=== PATIENT | female | born 1955 | race Caucasian/White ===

== ENCOUNTER 2021-03-25 11:23 | Emergency (ER) | payer MEDICARE, SELFPAY ==
--- NOTE | 2021-03-25 11:30 | ED.EAR ---
HPI - Ear Problem General Chief complaint: Ear Stated complaint: ear pain Time Seen by Provider: 03/25/21 11:30 Source: patient and RN notes reviewed History of Present Illness HPI Narrative: Patient is a 66-year-old female who presents the urgent care with complaints of left ear pain since last night. Patient states she was swimming last week and thinks that she has swimmer's ear. Denies of any other upper respiratory complaints. Denies of fever, drainage from the ear, nausea, vomiting. Patient has not taken anything [id number] for her pain. No other acute complaints. No acute distress noted. Patient aware of the plan of care. Some parts of this dictation were generated by voice recognition software and may contain typographical and/or grammatical inaccuracies. Related Data Home Medications Medication Instructions Recorded Confirmed aspirin 81 mg tablet,delayed 81 mg PO DAILY 03/03/20 03/25/21 release citalopram 20 mg tablet 20 mg PO DAILY 03/03/20 03/25/21 esomeprazole magnesium 20 mg 20 mg PO DAILY 03/03/20 03/25/21 capsule,delayed release losartan 50 mg tablet 50 mg PO DAILY 03/03/20 03/25/21 ropinirole 2 mg tablet 2 mg PO BID 03/03/20 03/25/21 rosuvastatin 10 mg tablet 10 mg PO DAILY 03/03/20 03/25/21 buspirone 15 mg PO DAILY 03/25/21 03/25/21 fluticasone furoate-vilanterol 100 inh INHALATION DIRECTED 03/25/21 03/25/21 [Breo Ellipta] metformin 2 mg PO BID 03/25/21 03/25/21 Allergies Allergy/AdvReac Type Severity Reaction Status Date / Time nickel Allergy Unknown Unknown Verified 03/03/20 15:24 Review of Systems Review of Systems: Narrative: CONSTITUTIONAL: Denies fever, chills, or sweats. EYES: Denies visual changes, redness, or discharge. ENT: Denies rhinorrhea, congestion, sore throat. Reports of left otalgia CARDIOVASCULAR: Denies chest pain, palpitations, or edema. RESPIRATORY: Denies cough or dyspnea. GASTROINTESTINAL: Denies abdominal pain, nausea, vomiting, or diarrhea. GENITOURINARY: Denies dysuria or hematuria. SKIN: Denies rash or itching. MUSCULOSKELETAL: Denies back pain, joint pain, or myalgia. NEUROLOGIC: Denies headache, numbness, or weakness. All other systems reviewed are negative, except as documented in HPI. [facility] Past Medical History Medical History (Updated 03/25/21 @ 11:40 by Brook Martinez [facility]) Heart attack (~02/2020) Hypertension Osteoarthritis of left shoulder Surgical History Surgical History (Updated 03/03/20 @ 15:23 by Beatriz Charlton) H/O heart bypass surgery (~05/2002) History of heart artery stent (~02/2020) x3 History of hysterectomy (~09/1999) Family History Family History (Updated 08/24/16 @ 09:28 by DOCTOR UNKNOWN) Father Carcinoma of colon Social History Social History Smoking status: Former smoker Smoking end date: 09/03/95 Gender identity (if verbalized by the patient): Female Comments At the time of my signature, I reviewed and agree with the nursing past medical, surgical, social, and family history. There is no relevant family history pertinent to the patient complaint. Exam Narrative: Exam Narrative: GENERAL: This is a well-nourished, well-developed patient, in no apparent distress. HEAD: normocephalic, atraumatic. EYES: PERRL. Sclera clear/white. Vision is grossly intact. EARS: External ears normal, right auditory canal clear and without drainage, pain with manipulation of the tragus on the left with very mild edema noted to the left auditory canal without drainage, TMs normal without perforation. Hearing grossly intact. NOSE: External nose normal with no obvious nasal discharge, nares without redness, no rhinorrhea. THROAT: Mucous membranes moist, posterior pharynx clear. NECK: Neck supple CARDIOVASCULAR: Regular rate and rhythm without murmurs, gallops, or rubs. RESPIRATORY: Clear to auscultation. Breath sounds equal bilaterally. No wheezes, rales, or rhonchi. SKIN: warm, intact with no suspicious lesio
[2021-03-25 11:37] VITALS: BP 143/52; PULSE 63; RESP 18; TEMP 36.8; O2SAT 100
== END 2021-03-25 11:45 | disposition home or self-care (01) ==
PROVIDERS: Emergency Provider Nurse Practitioner Family; PCP Family Medicine
DX: H92.02 Otalgia, left ear (principal); Z87.891 Personal history of nicotine dependence; I25.2 Old myocardial infarction; I10 Essential (primary) hypertension; M19.012 Primary osteoarthritis, left shoulder; Z95.5 Presence of coronary angioplasty implant and graft; Z79.82 Long term (current) use of aspirin
CPT/HCPCS: 99213; G0463

== ENCOUNTER 2021-11-16 09:17 | Outpatient (CLI) | payer MEDICARE, SELFPAY ==
--- NOTE | ~2021-11-16 | CT_ITS ---
EXAMINATION: CT shoulder LT wo con DATE: 11/16/2021 10:03 INDICATION: Primary osteoarthritis of the left shoulder TECHNIQUE: High resolution computed tomography (CT) of the left shoulder was performed without intrav enous contrast. Additional sagittal and coronal reconstructions were performed. Automated exposure co ntrol and iterative reconstruction technique were employed. The dose-length product was 529.06 mGy-cm . COMPARISON: None FINDINGS: Alignment is normal. No fracture. Moderate osteoarthritis at the left acromioclavicular joint. Severe osteoarthritis at the left glenohumeral joint. There is remodeling of the left humeral head with sli ght flattening superomedially. There is also remodeling of the glenoid with posterior predominant los s of bone stock resulting in approximately 12 degrees acquired retroversion. No glenohumeral joint ef fusion. No asymmetric muscular atrophy of the rotator cuff or shoulder girdle. Visualized portions of the left lung are clear. No left axillary or left hilar lymphadenopathy. IMPRESSION: 1. Severe left glenohumeral and moderate acromioclavicular osteoarthritis. Reviewed, dictated and finalized at location A.
== END 2021-11-16 09:18 | disposition home or self-care (01) ==
LOC: ANHIMG 09:22
PROVIDERS: PCP Family Medicine; Visit Provider Orthopaedic Surgery
DX: M19.012 Primary osteoarthritis, left shoulder (principal)
CPT/HCPCS: 73200

== ENCOUNTER 2021-12-21 13:37 | Outpatient (CLI) | payer MEDICARE, SELFPAY ==
--- NOTE | 2021-12-21 14:31 | ECG_ITS ---
Measurements Intervals [place] Rate: 70 P: 47 NC: 147 QRS: 49 QRSD: 97 T: 44 QT: 426 QTc: 460 Interpretive Statements SINUS RHYTHM BASELINE ARTIFACT BORDERLINE ECG NO PREVIOUS ECG AVAILABLE FOR COMPARISON Electronically Signed On 12-21-2021 18:15:27 CDT by Kenneth Villalobos M.D.
[2021-12-21 15:08] LABS: Basophils Absolute Auto 0.1 K/mm3 (0.0-0.1); Basophils Percent Auto 0.8 % (0.2-1.2); Eosinophils Absolute Auto 0.1 K/mm3 (0-0.3); Eosinophils Percent Auto 2.2 % (0-4.4); Hematocrit 35.6 % (37.0-47.0); Hemoglobin 10.9 g/dL (12.0-15.0); Immature Granulocyte Absolute 0.02 K/mm3 (0.00-0.031); Immature Granulocyte Percent A 0.3 % (0-0.5); Lymphocytes Absolute Auto 1.61 K/mm3 (0.9-3.2); Lymphocytes Percent Auto 25.2 % (18.3-44.2); Mean Corpuscular HGB Conc 30.6 g/dl (32-36); Mean Corpuscular Hemoglobin 27.3 pg (26-34); Mean Platelet Volume 9.1 fl (7.4-10.4); Monocytes Absolute Auto 0.6 K/mm3 (0.1-0.6); Monocytes Percent Auto 9.9 % (2.6-8.5); Neutrophils Absolute Auto 3.9 K/mm3 (1.3-6.7); Neutrophils Percent Auto 61.6 % (45.5-73.1); Platelet Count Result 235 k/mm3 (150-375); Red Cell Distribution Width 14.1 % (11.5-14.5); White Blood Count 6.4 K/mm3 (4.5-10.0)
[2021-12-21 15:21] LABS: Anion Gap 7 mmol/L (8-16); Blood Urea Nitrogen 11 mg/dL (7-17); Calcium 8.8 mg/dL (8.4-10.2); Carbon Dioxide 28 mmol/L (22-30); Chloride 103 mmol/L (98-107); Estimated Glomerular Filt Rate > 60; Glucose 136 mg/dL (65-110); Potassium 4.3 mmol/L (3.4-5.0); Sodium 138 mmol/L (137-145)
== END 2021-12-21 13:38 | disposition home or self-care (01) ==
PROVIDERS: Anesthesiology; PCP Family Medicine; Visit Provider Orthopaedic Surgery
DX: Z01.818 Encounter for other preprocedural examination (principal); M19.012 Primary osteoarthritis, left shoulder; E11.9 Type 2 diabetes mellitus without complications
CPT/HCPCS: 36415; 80048; 85025; 87081; 93005

== ENCOUNTER 2022-01-12 00:36 | Day surgery (SDC) | payer MEDICARE, SELFPAY ==
[2021-12-21 13:45] VITALS: BMI 38.2
--- NOTE | 2021-12-21 14:09 | PC.NURSE ---
Report to the Outpatient Waiting Room, entrance under the green pavilion located off [facility], at time _0600 on date 01/12/22 . OR Time: . - You and your visitor will be asked a series of questions to screen for COVID 19 for your protection. - A mask is required within the hospital. Preoperative COVID Testing Requirements: No COVID Test needed if: (proof is required; if not received patient will have Rapid Test prior to entry) - Patient has received COVID Vaccine at least 14 days prior to procedure date or - Patient has positive COVID test result within last 90 days of surgery date. COVID Test needed if above criteria is not met If not COVID vaccinated a COVID test must be conducted within 72 hours of surgery and patient is asked to isolate self from time of testing until procedure. You will go to the [facility] for your COVID testing. The [facility] site is located at the corner of [address] [facility]. You will only be called if COVID results are positive and your surgeon may reschedule your elective surgery date. Patients may have clear liquids (water, carbonated beverages, clear teas, apple juice) until 3 hours prior to surgery with a maximum of 20 ounces. - No food from midnight until time of surgery - Infants may have breast milk until 4 hours before surgery, infant formula 6 hours prior to surgery. - Children will be allowed to drink immediately following surgery. If applicable, please bring a bottle or sippy cup to assist with drinking. Juice, water, soda, and popsicles are readily available. For infants on formula, please bring formula the day of surgery. Pacifiers are allowed. Take the following medications with a SIP of water the morning of surgery: ___CITALOPRAM,BREO ELLIPTA INHALER,METOPROLOL, Medications to discontinue per physician __ASPIRIN 7 DAYS PRE OP,MULTIVITAMIN 3 DAYS PRE OP Date to take last dose__ASPIRIN 01/04/22, VITAMIN 01/08/22 Please no make-up, nail [place]ank[place], hairspray, perfume, deodorant, or body powder the day of surgery. No jewelry (including any body piercings) or valuables the day of surgery, leave them at home. Please take a shower or bath the night before, or the morning of, surgery with an antibacterial soap. Wear comfortable, loose fitting clothing. Children are encouraged to wear pajamas. - Jewelry must be removed prior to entering the operating room. Rings and piercings that are not removed may be cut off. - The hospital will not accept responsibility for valuables. - Please leave all valuables, including medications, at home the day of surgery. If you are going home after surgery, a licensed recycling collections driver must drive you home. - NO public transportation without another adult. - We recommend that an adult stay with you for 24 hours following discharge. - We also recommend that you do not drive, make important decision, drink alcoholic beverages, or take any drugs that were not prescribed by your health care provider for at least 24 hours after your discharge time. For Pediatric surgeries, we recommend two adults accompany the child home (only one inside the building at this time). One visitor will be allowed to accompany the patient into the hospital. Patients visitor will be instructed to remain with patient at all times or leave the building. We will allow the visitor to come back to the postoperative area when patient is ready. Follow any additional instructions given to you from your surgeon. VERBAL AND WRITTEN instructions given to __PT. and asked if any additional questions and then verbalized understanding. Patient advised to call surgeon office or pre surgery nurse liaison [phone] if any additional questions.
[2021-12-21 14:29] VITALS: BP 146/84; PULSE 78; RESP 18; TEMP 37.1; O2SAT 96
[2022-01-12] VITALS (16 sets, daily range): BP systolic 105–196; BP diastolic 44–93; PULSE 49–78; RESP 15–20; TEMP 35.8–36.5; O2SAT 92–100
[2022-01-12] MEDS: ACETAMINOPHEN 500 MG TABLET 1000 MG PO (06:23)
--- NOTE | 2022-01-12 06:54 | WPDANESEPPF ---
Anes - Initial Pre Proc Eval Procedure: Operation Date: 01/12/22 07:30 Proposed Procedures p Left Reverse Total Shoulder Arthroplasty - Reyes Byrnes MD Date/Time: 01/12/22 06:54 Surgeon: Reyes Byrnes MD Pre Op Diagnosis: primary oa left shoulder Patient Data Age: 67 Gender: F Height: 1.66 m Weight: 103 kg Last Vital Signs Temp 37.1 C 12/21/21 14:29 Pulse 78 12/21/21 14:29 Resp 18 12/21/21 14:29 BP 146/84 H 12/21/21 14:29 Pulse Ox 96 12/21/21 14:29 Allergies Allergy/AdvReac Type Severity Reaction Status Date / Time nickel Allergy Unknown Rash Verified 01/12/22 06:17 Home Medications Medication Instructions Recorded Confirmed Type aspirin 81 mg tablet,delayed 81 mg PO DAILY 03/03/20 01/12/22 History release esomeprazole magnesium 20 mg 40 mg PO DAILY 03/03/20 01/12/22 History capsule,delayed release losartan 50 mg tablet 50 mg PO DAILY 03/03/20 01/12/22 History ropinirole 2 mg tablet 3 mg PO HS 03/03/20 01/12/22 History rosuvastatin 10 mg tablet 20 mg PO DAILY 03/03/20 01/12/22 History fluticasone furoate-vilanterol 1 inh INHALATION DAILY 03/25/21 01/12/22 History [Breo Ellipta] metformin 1 mg PO BID 03/25/21 01/12/22 History citalopram 20 mg tablet 40 mg PO DAILY tablet 10/03/21 01/12/22 History metoprolol tartrate 25 mg PO BID 12/21/21 01/12/22 History multivitamin [Multi-Vitamin] 1 tablet PO DAILY 12/21/21 01/12/22 History Patient hx anesthesia problems: none Family hx anesthesia problems: none Results Review: All pre-operative results and documents have been reviewed as part of the pre-operative evaluation. [facility] Past Medical History Medical History Anxiety CAD (coronary artery disease) Chronic pain syndrome COPD (chronic obstructive pulmonary disease) Depression Diabetes GERD (gastroesophageal reflux disease) Heart attack (~02/2020) Hyperlipidemia Hypertension KELIN (obstructive sleep apnea) Osteoarthritis of left shoulder Osteoarthritis of right shoulder Surgical History Surgical History H/O heart bypass surgery (~05/2002) History of heart artery stent (~02/2020) x3 History of hysterectomy (~09/1999) Stented coronary artery Family History Family History Father Carcinoma of colon Social History Social History Smoking packs per day: 1 Smoking cigarettes per day: 20.0 Years smoked: 25 Smoking pack-years: 25.00 Smoking status: Former smoker Tobacco type: cigarettes Smoking end date: 09/03/95 Living arrangements: with family Gender identity (if verbalized by the patient): Female Spiritual care concerns: No Anes - Eval Final PreProcedure Day of Procedure 01/12/22 06:54 Patient weight: obese Heart: regular rate and rhythm Lungs: decreased breath sounds Airway: Mallampati scale class II Neurological: alert and oriented Last oral intake: >/= 8 hours ASA classification: III Emergent: no Anesthetic plan: proceed Anesthesia type and monitoring: general ETT and standard monitoring Results Review: All pre-operative results and documents have been reviewed as part of the pre-operative evaluation. Informed Consent: The patient's anesthetic plan and its attendant risks and benefits were discussed with the patient/family/POA. Questions were solicited and answers provided to the satisfaction of the patient/family/POA.
[2022-01-12 06:55] LABS: Glucose Point of Care 156 mg/dl (65-105)
[2022-01-12] MEDS: LACTATED RINGERS 1,000 ML 30 ML IV CONT (07:01)
[2022-01-12] MEDS: TRANEXAMIC ACID 1,000MG/ISO100 1,000 MG/100 ML BAG 200 MG IVPB (07:02)
--- NOTE | 2022-01-12 07:14 | WPDHPUPDATE1 ---
History and Physical Update Update Date/Time: 01/12/22 07:14 History and Physical has been reviewed, including an updated exam of the patient. There are NO changes in the patient's condition. Risks, benefits, and alternatives have been discussed and questions answered. Patient agrees to proceed with procedure.
[2022-01-12] MEDS: ceFAZolin 2 GM/D5W 50 ML 2 GM/50 ML BAG IVPB ×2 (07:29→16:08)
[2022-01-12] MEDS: VANCOMYCIN HCL 1,000 MG VIAL 1000 MG TOPICAL (08:20)
[2022-01-12 10:39] LABS: Glucose Point of Care 203 mg/dl (65-105)
--- NOTE | 2022-01-12 11:43 | ADMGEN ---
This patient, Tiffanie Stanley, was admitted to Medical Room 246-01. Patient/family oriented to hospital policies and general routines including ID bracelet, bed and alarms, visiting hours, pain management, procedures, bathroom and other care routines, personal items, smoking policy, room service/diet, and visiting hours. Information on how to activate the Rapid Response Team has been discussed. Patient/Family are encouraged to report perceived risks to care and to ask questions if they do not understand what they are told or what they should do.
[2022-01-12] MEDS: SODIUM CHLORIDE 0.9% IV 1,000 ML 125 ML IV CONT (12:03)
[2022-01-12] MEDS: ROSUVASTATIN 10 MG TABLET 20 MG PO (12:16)
[2022-01-12] MEDS: LOSARTAN POTASSIUM 50 MG TABLET PO (12:16)
[2022-01-12] MEDS: PANTOPRAZOLE 40 MG TABLET PO (12:16)
--- NOTE | 2022-01-12 13:45 | WPDCN ---
Assessment and Plan Assessment and plan (1) Osteoarthritis of left shoulder: Qualifiers: Osteoarthritis type: primary Qualified Code(s): M19.012 - Primary osteoarthritis, left shoulder Code(s): M19.012 - Primary osteoarthritis, left shoulder Status: Acute Assessment and Plan: Postoperative day 0, status post left reverse total shoulder. Wound care, pain control, DVT prophylaxis deferred to primary service. (2) Hypertension: Code(s): I10 - Essential (primary) hypertension Status: Acute Assessment and Plan: Blood pressures were reviewed and they have been stable postoperatively. Resume antihypertensives and monitor daily. (3) Hyperlipidemia: Code(s): E78.5 - Hyperlipidemia, unspecified Status: Acute Assessment and Plan: Continue rosuvastatin. Check LFTs in a.m.. (4) Type 2 diabetes mellitus: Code(s): E11.9 - Type 2 diabetes mellitus without complications Status: Acute Assessment and Plan: Continue metformin. Initiate sliding scale insulin, Accu-Cheks, and hypoglycemic protocol. (5) Obstructive sleep apnea on CPAP: Code(s): G47.33 - Obstructive sleep apnea (adult) (pediatric); Z99.89 - Dependence on other enabling machines and devices Status: Acute Assessment and Plan: CPAP will be provided for the patient to use while hospitalized. (6) Coronary artery disease: Code(s): I25.10 - Atherosclerotic heart disease of [place] coronary artery without angina pectoris Status: Acute Assessment and Plan: No acute issues. Resume aspirin when okay with primary service. Continue beta-sarah and statin. (7) Chronic obstructive pulmonary disease: Code(s): J44.9 - Chronic obstructive pulmonary disease, unspecified Status: Acute Assessment and Plan: No acute issues. Continue maintenance inhalers. Additional Plan Thank you for allowing us to participate in this patient's care. Please do not hesitate to contact us with any questions. Supervising physician for this medical consultation is Dr. Jose Guadalupe Goldman. HPI Data of Consult Date/Time: 01/12/22 13:45 Requesting Physician: Reyes Byrnes MD Reason for consult: Postoperative medical management. Primary Care Provider: Parth Mcdonald, Consult Narrative Narrative: This is a 67-year-old female with coronary artery disease,, hypertension, hyperlipidemia, diabetes, asthma, sleep apnea, GERD, depression, and anxiety whom the hospitalist service has been consulted for help in managing her chronic medical conditions postoperatively. She reports ongoing left shoulder pain for quite some time related to osteoarthritis which unfortunately has not improved with conservative treatment. Surgery today was performed the neural general and regional anesthesia (scalene block) with no immediate complications documented an estimated blood loss of 100 mL. At the time my evaluation she reports having no pain whatsoever. Her only complaint is that of her restless legs syndrome and she is requesting her ropinirole. She has been eating and drinking well and she denies postoperative fever, chills, sweats, chest pain, shortness breast, nausea, and vomiting. No paresthesias, skin color, or temperature changes distal to the surgical site. On discharge she will be staying with her sister until she feels comfortable managing at home. Review of Systems Review of Systems: Twelve systems were reviewed. No recent cold or flu symptoms. No sick contacts. No exertional chest pain or shortness of breath. 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 States compliance with her CPAP at nighttime. She believes her hypertension is well controlled with home medications. She does not check her glucose as often as she should. No blurry vision, p
[2022-01-12] MEDS: SENNA/DOCUSATE SODIUM TABLET 2 TAB PO (16:11)
[2022-01-12] MEDS: ASPIRIN 81 MG ENTERIC TABLET PO (16:12)
[2022-01-12] MEDS: metFORMIN HCL 500 MG TABLET PO (16:12)
[2022-01-12] MEDS: METOPROLOL TARTRATE 25 MG TABLET PO (16:12)
[2022-01-12 16:21] LABS: Glucose Point of Care 160 mg/dl (65-105)
--- NOTE | 2022-01-12 16:49 | PM.DS ---
DS: Admitting Diagnosis Discharge Date 01/13/22 Admitting Diagnosis Severe glenohumeral joint arthritis DS: Discharge Diagnosis Discharge Diagnosis (1) Status post reverse total arthroplasty of left shoulder: Code(s): Z96.612 - Presence of left artificial shoulder joint Status: Acute Assessment and Plan: Postop day 1: Left reverse total shoulder arthroplasty. Patient tolerated procedure well. No complications. Pain manageable with pain medication. No numbness or tingling. We had a lengthy discussion regarding postoperative wound care, limitations, expectations, and exercises. Patient shows good understanding. She has had initial physical therapy and is tolerating it well. DVT prophylaxis: 81 mg baby aspirin b.i.d. for 14 days. Pain medication: Percocet. Patient has followup appointment with Dr. Byrnes in 3 weeks. DS: Summary Hospital Course Hospital Course: Left reverse total shoulder arthroplasty. No complications. Patient has had initial physical therapy and occupational therapy. Status at Discharge Functional status at discharge: independent ambulation Overall status at discharge: patient is progressing back to baseline Time Spent with Patient Time attestation: Total time spent providing and/or coordinating discharge services: Exam Narrative: Overweight 67 y/o female. Resting comfortably in chair. Wearing sling. Dressing dry and intact with no drainage. Moderate swelling. Moderate ecchymosis. No erythema. No hematoma. Range of motion limited due to pain. Calf nontender. Neurologic status intact. No varicosities. Distal pulses palpable. DS: Data Data Completed and Pending Labs on day of discharge: Labs from last 24 hours 01/12/22 01/12/22 01/12/22 16:05 10:37 06:53 POC Capillary Glucose 160 H 203 H 156 H Blood Type Antibody Screen 01/12/22 06:48 POC Capillary Glucose Blood Type O Positive Antibody Screen Negative Discharge Plan Discharge Patient Disposition: Home, Self-Care Discharge Instructions: See green instruction sheets. Patient Instructions: Pain Management (DC) Follow-up/Referrals: Danya Siegel PA [Physician [facility]] - Discharge Medications: New aspirin 81 mg tablet,delayed release (DR/EC) 81 mg PO BID 14 Days Qty: 28 RF: 0 oxycodone-acetaminophen 5-325 mg tablet 1 - 2 tablet PO Q4-6H MDD 6 PRN (Reason: pain) Qty: 30 RF: 0 Continued Breo Ellipta 100-25 mcg/dose blister with device 1 inh INHALATION DAILY RF: 0 metformin 500 mg tablet 1 mg PO BID RF: 0 losartan 50 mg tablet 50 mg PO DAILY RF: 0 rosuvastatin 10 mg tablet 20 mg PO DAILY RF: 0 ropinirole 2 mg tablet 3 mg PO HS RF: 0 esomeprazole magnesium [Nexium] 20 mg capsule,delayed release(DR/EC) 40 mg PO DAILY RF: 0 citalopram 20 mg tablet 40 mg PO DAILY RF: 0 metoprolol tartrate 25 mg tablet 25 mg PO BID RF: 0 multivitamin Tablet 1 tablet PO DAILY RF: 0 Held aspirin [Adult Aspirin Regimen] 81 mg tablet,delayed release (DR/EC) 81 mg PO DAILY RF: 0 Hold Instructions: Resume on 01/26/22. Take twice a day for 2 weeks then resume normal dose.
--- NOTE | 2022-01-12 17:12 | W.PM.PROC2 ---
Procedure Note - Detailed Date of Procedure 01/12/22 Pre-op Diagnosis primary oa left shoulder Post-op Diagnosis Same Procedure Performed Reverse total shoulder arthroplasty, left. Surgeon Reyes Byrnes MD Fabric Pattern Grader Danya Siegel PA-C Anesthesia General and Regional (Interscalene block.) Findings The bone quality was good. There was moderate posterior superior wear on the glenoid, which was demonstrated on the 3 dimensional planning software preoperatively. 10 degree correction with the implant and 5? with reaming was performed. Description of Procedure The patient was given an interscalene block in the preoperative area. Preoperative antibiotics were given. The patient was transferred to the operating room and a general anesthetic was administered. The beach chair position was used at 45 degrees. All bony prominences were padded. The head was carefully stabilized on the Pending sale to [facility] heading matcher and assembler. A sterile prep and drape was performed in the usual manner with ChloraPrep. A longitudinal incision was created at the anterior shoulder just lateral to the deltopectoral interval. Hydrogen peroxide was placed on the incision and then rinsed after one minute. Careful dissection was performed to expose the interval and protect the cephalic vein. The vein was retracted medially. The upper border of the pectoralis was released. Anterior circumflex vessel branches were suture ligated. The biceps was tenodesed. A subscapularis tenotomy was performed. The inferior capsule was released, exposing the humeral head. Osteophytes were removed. Care was taken to stay on bone to protect the axillary nerve. The anatomic head cut was taken with the oscillating saw. The guide pin was placed, central drilling performed, and the broach trial inserted. The neck anteversion and inclination were carefully assessed. The cut protector was placed, and attention was turned to the glenoid. Retractors were placed. Releases were carried out for exposure. The subscapularis was mobilized, the inferior capsule and long head of triceps released, and the superior and middle glenohumeral ligaments released as well. Labral tissue was resected as needed. The sizing template was used to assess the baseplate position low on the glenoid. A guide pin was placed. Minimal reaming was used to accomplish a flat surface without violating the subchondral bone. Version was corrected according to preoperative templating. The extended central boss drill breached the vault. Bone graft was used to fill the defect. Excellent stability was obtained with the Press-Fit of the implant, and there was excellent backside support. Fixation was supplemented with 4 peripheral locking screws. The glenosphere was impacted into the taper. The proximal humerus was reamed for the inset component. The humeral components were trialed. The real humeral stem, tray, and insert were impacted into position. The shoulder was copiously irrigated periodically with pulsatile lavage. The shoulder was reduced and stability confirmed. 1 gram of Vancomycin powder was placed in the joint. The biceps tenodesis was incorporated with the pectoralis tendon repair. The deltopectoral space was reapproximated with number 1 Vicryl. The remaining tissue was closed with 0 Quill and 2-0 Quill running suture and steri-strips. A sterile silver occlusive dressing and shoulder immobilizer were placed. The patient was transferred to the recovery room. Physician assistant case manager, Danya Siegel PA-C, required for surgery; including patient positioning, draping, tissue retraction, maintaining instrument position, wound closure, and dressing placement. Implants Shoulder Innovations reverse TSA size 1 stem. +3 polyethylene insert. 10 degree baseplate. 33 +6 mm glenosphere. Estimated Blood Loss -100.0 Drains No Pathology None sent Complications No immediate complications Condition Stable Disposition PACU [facility] Billing Surgery - Charge Forward: Surgery Billing
[2022-01-12] MEDS: rOPINIRole HCL 1 MG TABLET 3 MG PO (19:46)
[2022-01-12] MEDS: ACETAMINOPHEN 325 MG TABLET PO (21:48)
[2022-01-12] MEDS: diphenhydrAMINE HCl CAP 25 MG CAPSULE PO (21:49)
[2022-01-13] MEDS: ceFAZolin 2 GM/D5W 50 ML 2 GM/50 ML BAG IVPB ×2 (00:18→07:33)
[2022-01-13 01:38] LABS: Glucose Point of Care 130 mg/dl (65-105)
[2022-01-13 01:42] VITALS: O2SAT 96
[2022-01-13 03:52] VITALS: BP 122/50; PULSE 68; RESP 17; TEMP 36.5; O2SAT 92
[2022-01-13 04:58] VITALS: O2SAT 96
[2022-01-13 05:39] LABS: Hemoglobin 9.1 g/dL (12.0-15.0); Mean Corpuscular HGB Conc 30.3 g/dl (32-36); Mean Corpuscular Hemoglobin 27.5 pg (26-34); Mean Corpuscular Volume 90.6 fl (80-100); Mean Platelet Volume 9.4 fl (7.4-10.4); Platelet Count Result 215 k/mm3 (150-375); Red Blood Count 3.31 M/mm3 (4.2-5.4); Red Cell Distribution Width 15.1 % (11.5-14.5); White Blood Count 10.5 K/mm3 (4.5-10.0)
[2022-01-13 05:56] LABS: Hemoglobin A1C 6.9 % (<5.7)
[2022-01-13 05:59] LABS: Alanine Aminotransferase 15 U/L (6-35); Albumin Level 3.5 g/dL (3.5-5.1); Alkaline Phosphatase 51 U/L (38-126); Anion Gap 3 mmol/L (8-16); Aspartate Amino Transferase 27 U/L (14-36); Bilirubin,Total 0.4 mg/dL (0.2-1.3); Blood Urea Nitrogen 11 mg/dL (7-17); Carbon Dioxide 28 mmol/L (22-30); Chloride 103 mmol/L (98-107); Estimated CRCL calculation 81 ml/min; Estimated Glomerular Filt Rate > 60; Glucose 129 mg/dL (65-110); Magnesium 2.1 mg/dL (1.6-2.3); Potassium 3.9 mmol/L (3.4-5.0); Sodium 134 mmol/L (137-145)
[2022-01-13] MEDS: oxyCODONE HCL (*CRX) 5 MG TAB IR PO (07:34)
[2022-01-13 07:37] LABS: Glucose Point of Care 120 mg/dl (65-105)
[2022-01-13] MEDS: metFORMIN HCL 500 MG TABLET PO (07:37)
[2022-01-13] MEDS: polyethylene glycoL 3350 17 GM POWD.PACK PO (07:37)
[2022-01-13 07:38] VITALS: PULSE 68
[2022-01-13] MEDS: METOPROLOL TARTRATE 25 MG TABLET PO (07:38)
[2022-01-13] MEDS: SENNA/DOCUSATE SODIUM TABLET 2 TAB PO (07:38)
[2022-01-13] MEDS: ROSUVASTATIN 10 MG TABLET 20 MG PO (07:38)
[2022-01-13] MEDS: ASPIRIN 81 MG ENTERIC TABLET PO (07:38)
[2022-01-13] MEDS: CITALOPRAM HYDROBROMIDE 20 MG TABLET 40 MG PO (07:39)
[2022-01-13] MEDS: PANTOPRAZOLE 40 MG TABLET PO (07:39)
[2022-01-13] MEDS: LOSARTAN POTASSIUM 50 MG TABLET PO (07:39)
[2022-01-13 08:53] VITALS: O2SAT 95
[2022-01-13] MEDS: FLUTICASONE/SALMETEROL 115-21 MCG INHALER 1 PUFF 2 PUFF INHALATION (09:00)
--- NOTE | 2022-01-13 09:28 | WPDANESPN ---
Anes - Prog Note Post-Op Date/Time: 01/13/22 09:28 Cardiovascular status: normal Respiratory status: normal Airway patency: baseline Mental status: baseline Post-Op hydration status: normal Vital Signs: Last Vital Signs Temp 36.5 C 01/13/22 03:52 Pulse 68 01/13/22 07:38 Resp 17 01/13/22 03:52 BP 122/50 L 01/13/22 03:52 Pulse Ox 95 01/13/22 08:53 Pain Score (VAS): 0 I/O: Intake & Output 01/12/22 01/13/22 01/13/22 23:59 07:59 15:59 Intake Total 2089 690 Output Total 800 Balance 0 - Laboratory Tests 01/13/22 05:09 01/13/22 05:09 01/12/22 01/12/22 01/13/22 10:37 16:05 01:35 WBC RBC Hgb Hct MCV MCH MCHC RDW Plt Count MPV Sodium Potassium Chloride Carbon Dioxide Anion Gap BUN Creatinine Estim Creat Clear Calc Estimated GFR Glucose POC Capillary Glucose 203 H 160 H 130 H Hemoglobin A1c Calcium Magnesium Total Bilirubin AST ALT Alkaline Phosphatase Total Protein Albumin 01/13/22 01/13/22 01/13/22 05:09 05:09 05:09 WBC 10.5 H RBC 3.31 L Hgb 9.1 L Hct 30.0 L MCV 90.6 MCH 27.5 MCHC 30.3 L RDW 15.1 H Plt Count 215 MPV 9.4 Sodium 134 L Potassium 3.9 Chloride 103 Carbon Dioxide 28 Anion Gap 3 L BUN 11 Creatinine 0.70 Estim Creat Clear Calc 81 Estimated GFR > 60 Glucose 129 H POC Capillary Glucose Hemoglobin A1c 6.9 H Calcium 8.0 L Magnesium 2.1 Total Bilirubin 0.4 AST 27 ALT 15 Alkaline Phosphatase 51 Total Protein 6.0 L Albumin 3.5 01/13/22 07:35 WBC RBC Hgb Hct MCV MCH MCHC RDW Plt Count MPV Sodium Potassium Chloride Carbon Dioxide Anion Gap BUN Creatinine Estim Creat Clear Calc Estimated GFR Glucose POC Capillary Glucose 120 H Hemoglobin A1c Calcium Magnesium Total Bilirubin AST ALT Alkaline Phosphatase Total Protein Albumin Post-procedural complaints: none Patient Feedback: Patient satisfied with anesthetic care.
--- NOTE | 2022-01-13 11:07 | PCPTNOTE ---
PT attempted to see patient 2x this A.M. for therapy, however patient with OT on fist attempt and then discharged when PT returned.
--- NOTE | 2022-01-13 14:03 | PM.IMPN ---
Progress Note: A&P Assessment and Plan (1) Osteoarthritis of left shoulder: Qualifiers: Osteoarthritis type: primary Qualified Code(s): M19.012 - Primary osteoarthritis, left shoulder Code(s): M19.012 - Primary osteoarthritis, left shoulder Status: Acute Assessment and Plan: Postoperative day 1, status post left reverse total shoulder. Wound care, pain control, DVT prophylaxis deferred to surgery team (2) Hypertension: Code(s): I10 - Essential (primary) hypertension Status: Acute Assessment and Plan: Blood pressures were reviewed and they have been stable postoperatively. Resume antihypertensives and monitor daily. (3) Hyperlipidemia: Code(s): E78.5 - Hyperlipidemia, unspecified Status: Acute Assessment and Plan: Continue rosuvastatin. Check LFTs in a.m.. (4) Type 2 diabetes mellitus: Code(s): E11.9 - Type 2 diabetes mellitus without complications Status: Acute Assessment and Plan: Continue metformin. Initiate sliding scale insulin, Accu-Cheks, and hypoglycemic protocol. (5) Obstructive sleep apnea on CPAP: Code(s): G47.33 - Obstructive sleep apnea (adult) (pediatric); Z99.89 - Dependence on other enabling machines and devices Status: Acute Assessment and Plan: CPAP will be provided for the patient to use while hospitalized. (6) Coronary artery disease: Code(s): I25.10 - Atherosclerotic heart disease of [place] coronary artery without angina pectoris Status: Acute Assessment and Plan: No acute issues. Resume aspirin when okay with surgery team Continue beta-sarah and statin. (7) Chronic obstructive pulmonary disease: Code(s): J44.9 - Chronic obstructive pulmonary disease, unspecified Status: Acute Assessment and Plan: No acute issues. Continue maintenance inhalers. Subjective Date/time seen: 01/13/22 14:03 Review of Systems Review of Systems: All systems reviewed & are unremarkable except as noted in HPI and below Exam Const: General: no acute distress HENMT: Mouth: Yes moist mucous membranes Eyes: General: appearance normal, both eyes and all related structures Neck: Neck: No no JVD Resp: Auscultation: clear to auscultation bilaterally Cardio: Rate: regular rate Rhythm: regular rhythm GI: Inspection: non-distended GI Palp: Yes Soft to palpation and No Tenderness to palpation present (GI) Neuro: General: gait normal Speech: normal speech Extrem: Other: Left arm in sling Psych: Mental Status: mental status grossly normal Objective Data Vital Signs Vital Signs: Vital Signs - 24 hr 01/12/22 15:38 01/12/22 16:12 01/12/22 16:14 Temperature Pulse Rate 66 Respiratory Rate Blood Pressure 136/53 L Pulse Oximetry 97 01/12/22 20:19 01/12/22 21:12 01/12/22 23:09 Temperature 96.8 F L Pulse Rate 68 Respiratory Rate 18 Blood Pressure 142/54 H Pulse Oximetry 95 95 95 01/12/22 23:51 01/13/22 01:42 01/13/22 03:52 Temperature 96.5 F L 97.7 F Pulse Rate 76 68 Respiratory Rate 17 17 Blood Pressure 125/44 L 122/50 L Pulse Oximetry 92 96 92 01/13/22 04:58 01/13/22 07:38 01/13/22 08:53 Temperature Pulse Rate 68 Respiratory Rate Blood Pressure Pulse Oximetry 96 95 Intake/Output Intake/Output: Intake & Output 01/10/22 01/11/22 01/12/22 01/13/22 23:59 23:59 23:59 23:59 Intake Total 0 2390 1230 Output Total 1500 Balance 0 2390 -270 Labs Labs: Laboratory Results - last 24 hr 01/12/22 01/13/22 01/13/22 16:05 01:35 05:09 WBC 10.5 H RBC 3.31 L Hgb 9.1 L Hct 30.0 L MCV 90.6 MCH 27.5 MCHC 30.3 L RDW 15.1 H Plt Count 215 MPV 9.4 Sodium Potassium Chloride Carbon Dioxide Anion Gap BUN Creatinine Estim Creat Clear Calc Estimated GFR Glucose POC Capillary Glucose 160 H 130 H
== END 2022-01-13 10:36 | disposition home or self-care (01) ==
LOC: ANHSURGERY 06:08 → ANH2MED 11:33
PROVIDERS: Physician Assistant; PCP Family Medicine; Visit Provider Orthopaedic Surgery
PROC: (CPT 23472; principal; 2022-01-12 07:30)
DX: M19.012 Primary osteoarthritis, left shoulder (principal); I25.10 Atherosclerotic heart disease of native coronary artery without angina pectoris; J44.9 Chronic obstructive pulmonary disease, unspecified; E11.9 Type 2 diabetes mellitus without complications; F41.8 Other specified anxiety disorders; I10 Essential (primary) hypertension; E78.5 Hyperlipidemia, unspecified; G47.33 Obstructive sleep apnea (adult) (pediatric); G89.4 Chronic pain syndrome; I25.2 Old myocardial infarction; K21.9 Gastro-esophageal reflux disease without esophagitis; Z79.82 Long term (current) use of aspirin; Z79.84 Long term (current) use of oral hypoglycemic drugs; Z95.1 Presence of aortocoronary bypass graft; Z95.5 Presence of coronary angioplasty implant and graft; Z87.891 Personal history of nicotine dependence; E66.9 Obesity, unspecified; Z68.39 Body mass index [BMI] 39.0-39.9, adult
CPT/HCPCS: 23472; 36415; 80048; 80053; 82948; 83036; 83735; 85025; 85027; 86850; 86900; 86901; 87081; 93005; 94640; 97110; 97161; 97165; 97535; A4565; A9270; J0131; J0171; J0330; J0360; J0690; J1100; J1170; J1885; J2250; J2270; J2405; J2704; J2795; J3010; J3370; J7030; J7120

== ENCOUNTER 2022-02-23 11:28 | Emergency (ER) | payer MEDICARE, SELFPAY ==
[2022-02-23 11:44] VITALS: BP 135/84; PULSE 57; RESP 20; TEMP 36.7; O2SAT 100
--- NOTE | 2022-02-23 12:18 | ED.URI ---
HPI - URI/Sore Throat General Chief Complaint: Upper Respiratory Infection Stated Complaint: Cough and Ear pain from the outside Time Seen by Provider: 02/23/22 12:18 Source: patient Mode of arrival: ambulatory Limitations: no limitations History of Present Illness HPI Narrative: 67 yo F presents with c/o fatigue, nasal congestion, dry cough, headaches, bodyaches for 2 days. Reports that she has had a fever but has not checked temp. Taking tylenol for pain/fever. Covid vaccinated. has been attending [employer] and family events. No known covid contact. Denies CP and SOB. All systems reviewed and negative except as noted above. Related Data Home Medications Medication Instructions Recorded Confirmed aspirin 81 mg tablet,delayed 81 mg PO DAILY 03/03/20 02/23/22 release (Adult Aspirin Regimen) esomeprazole magnesium 20 mg 40 mg PO DAILY 03/03/20 02/23/22 capsule,delayed release (Nexium) rosuvastatin 10 mg tablet 20 mg PO DAILY 03/03/20 02/23/22 fluticasone furoate 100 1 inh inhalation DAILY 03/25/21 02/23/22 mcg-vilanterol 25 mcg/dose inhalation powder (Breo Ellipta) metformin 500 mg tablet 500 mg PO BID 03/25/21 02/23/22 citalopram 20 mg tablet 40 mg PO DAILY 10/03/21 02/23/22 metoprolol tartrate 25 mg tablet 25 mg PO BID 12/21/21 02/23/22 multivitamin 1 tablet PO DAILY 12/21/21 02/23/22 buspirone 15 mg tablet 15 tablet PO DAILY 02/23/22 02/23/22 losartan 50 mg tablet 50 mg PO DAILY 02/23/22 02/23/22 ropinirole 3 mg tablet 3 tablet PO DAILY 02/23/22 02/23/22 Allergies Allergy/AdvReac Type Severity Reaction Status Date / Time nickel Allergy Unknown Rash Verified 02/23/22 11:58 Review of Systems Review of Systems: CONSTITUTIONAL: Reports fever, chills, or sweats. Reports fatigue EYES: Denies visual changes, redness, or discharge. ENT: Reports rhinorrhea, congestion, sore throat. Denies otalgia. CARDIOVASCULAR: Denies chest pain, palpitations, or edema. RESPIRATORY: Reports cough. Denies dyspnea. GASTROINTESTINAL: Denies abdominal pain, nausea, vomiting, or diarrhea. GENITOURINARY: Denies dysuria or hematuria. SKIN: Denies rash or itching. MUSCULOSKELETAL: Denies back pain, joint pain, or myalgia. NEUROLOGIC: Denies headache, numbness, or weakness. PSYCHIATRIC: Denies anxiety or depression. All other systems reviewed are negative, except as documented in HPI. [facility] Past Medical History Medical History Anxiety Chronic obstructive pulmonary disease Chronic pain syndrome Coronary artery disease Depression Gastroesophageal reflux disease Hyperlipidemia Hypertension Obstructive sleep apnea on CPAP Type 2 diabetes mellitus Surgical History Surgical History History of arthroplasty of left knee (03/2018) History of arthroplasty of right knee (10/2017) History of arthroscopy of left shoulder (03/2017) History of colonoscopy with polypectomy History of heart artery stent (02/2020) x3 History of hysterectomy (09/1999) History of reverse total replacement of left shoulder joint (01/12/22) History of three vessel coronary artery bypass (05/2002) Family History Family History Father Carcinoma of colon Sibling Graves disease Muscular dystrophy Rheumatoid arthritis Mother Cerebrovascular accident Social History Social History (Updated 01/12/22 @ 21:21 by Payal Singh PA-C) Social History: Surrogate decision maker: Susan Olivas, sibling. Code status: Full code. Full code. Smoking packs per day: 1 Smoking cigarettes per day: 20.0 Years smoked: 25 Smoking pack-years: 25.00 Smoking status: Former smoker Alcohol intake: never Substance use: never Spiritual care concerns: No Comments At time of signature, agree with nursing past medical, surgical, social and family history. There is no relevant family h
== END 2022-02-23 12:46 | disposition home or self-care (01) ==
PROVIDERS: Emergency Provider Nurse Practitioner Family; PCP Family Medicine
DX: U07.1 COVID-19 (principal); J44.9 Chronic obstructive pulmonary disease, unspecified; I25.10 Atherosclerotic heart disease of native coronary artery without angina pectoris; E78.5 Hyperlipidemia, unspecified; I10 Essential (primary) hypertension; G47.33 Obstructive sleep apnea (adult) (pediatric); E11.9 Type 2 diabetes mellitus without complications; Z95.5 Presence of coronary angioplasty implant and graft; Z79.82 Long term (current) use of aspirin
CPT/HCPCS: 87426; 87804; 99213; C9803; G0463

== ENCOUNTER 2024-09-22 16:52 | Emergency (ER) | payer MEDICARE, SELFPAY ==
--- NOTE | ~2024-09-22 | XR_ITS ---
HISTORY: L foot pain s/p injury/fall COMPARISON: None TECHNIQUE: 3 views of the left foot were performed FINDINGS: No acute fracture or dislocation is appreciated. Moderate degenerative disease is noted. The base of the fifth metatarsal is intact. Large calcaneal spur is noted. Forefoot soft tissue swelling is present. IMPRESSION: Degenerative disease, without acute fracture. Reviewed, dictated and finalized at location [facility]. [facility]
[2024-09-22 17:30] VITALS: BP 140/70; PULSE 72; RESP 16; TEMP 36.6; O2SAT 98
--- NOTE | 2024-09-22 17:34 | ED_ITS ---
HPI - Extremity Injury (Lower) General Chief Complaint: Extremity Injury, Lower <Jackie Brown APRN - Last Filed: 09/22/24 17:36> Stated Complaint: left foot injury <Jackie Brown APRN - Last Filed: 09/22/24 17:36> Time Seen by Provider: 09/22/24 17:20 <Jackie Brown APRN - Last Filed: 09/22/24 17:36> Focused HPI: Patient is a 69-year-old female who endorses left foot pain after falling this morning. She reports her dog and knocked water he is off her night stand a night. Patient did not realize there was water next to her bed so when she got out of bed she slipped and fell. Patient endorses pain and swelling on the top, bottom, and inner foot. She endorses a history of diabetes, cardiac surgery, high blood pressure, colitis. GENERAL: Well-appearing, well-nourished, and in no acute distress. HEAD: Normocephalic, atraumatic. CHEST: Clear to auscultation. ?No respiratory distress. HEART: Regular rate and rhythm.? NEURO: ?Alert and oriented x3. Patient screened in triage and initial orders placed.? ?Additional care and disposition to be based upon?diagnostic testing and treatment. <Jackie Brown APRN - Last Filed: 09/22/24 17:36> Source: patient <Paul Sotelo PA-C - Last Filed: 09/22/24 20:56> Mode of arrival: ambulatory <Paul Sotelo PA-C - Last Filed: 09/22/24 20:56> Limitations: no limitations <ARABELLA King Last Filed: 09/22/24 20:56> History of Present Illness HPI Narrative: Agree with triage note above <ARABELLA King Last Filed: 09/22/24 20:56> Related Data Home Medications: Home Medications ?Medication ?Instructions ?Recorded ?Confirmed ?Last Taken ?Type aspirin 81 mg tablet,delayed 81 mg PO DAILY 03/03/20 05/01/22 01/05/22 History release (Adult Aspirin Regimen) esomeprazole magnesium 20 mg 40 mg PO DAILY 03/03/20 05/01/22 01/11/22 History capsule,delayed release (Nexium) rosuvastatin 10 mg tablet 20 mg PO DAILY 03/03/20 05/01/22 01/11/22 History fluticasone furoate 100 1 inh inhalation DAILY 03/25/21 05/01/22 01/12/22 04:45 History mcg-vilanterol 25 mcg/dose inhalation powder (Breo Ellipta) metformin 500 mg tablet 500 mg PO BID 03/25/21 05/01/22 01/11/22 History citalopram 20 mg tablet 40 mg PO DAILY 10/03/21 05/01/22 01/12/22 04:45 History metoprolol tartrate 25 mg tablet 25 mg PO BID 12/21/21 05/01/22 01/12/22 04:45 History multivitamin 1 tablet PO DAILY 12/21/21 05/01/22 01/05/22 History buspirone 15 mg tablet 15 tablet PO DAILY 02/23/22 05/01/22 Unknown History losartan 50 mg tablet 50 mg PO DAILY 02/23/22 05/01/22 Unknown History ropinirole 3 mg tablet 3 tablet PO DAILY 02/23/22 05/01/22 Unknown History <Jackie Brown APRN - Last Filed: 09/22/24 17:36> Allergies/Adverse Reactions: Allergies Allergy/AdvReac Type Severity Reaction Status Date / Time nickel Allergy Unknown Rash Verified 05/01/22 10:01 <Jackie Brown APRN - Last Filed: 09/22/24 17:36> Review of Systems Review of Systems: All systems as dictated in HPI <Paul Sotelo PA-C - Last Filed: 09/22/24 20:56> [facility] Past Medical History Medical History: Medical History Anxiety Chronic obstructive pulmonary disease Chronic pain syndrome Coronary artery disease Depression Gastroesophageal reflux disease Hyperlipidemia Hypertension Obstructive sleep apnea on CPAP Type 2 diabetes mellitus <Jackie Brown APRN - Last Filed: 09/22/24 17:36> Surgical History Surgical History: Surgical History History of arthroplasty of left knee (03/2018) History of arthroplasty of right knee (10/2017) History of arthroscopy of left shoulder (03/2017) History of colonoscopy with polypectomy History of heart artery stent (02/2020) x3 History of hysterectomy (09/1999) History of reverse total replacement of left shoulder joint (01/12/22) History of three vessel coronary artery bypass (05/2002) <Jackie Brown APRN - Last Filed: 09/22/24 17:36> Family History Family History: Family History Father Carcinoma of colon Sibling Graves disease Muscular dystrophy Rheumatoid arthritis Mother Cerebrovascular accident <Jackie Brown APRN - Last Filed: 09/22/24 17:36> Social History Social History: Social History Social History: Surrogate decision maker: Susan Olivas, sibling. Code status: Full code. Full code. Smoking packs per day: 1 Smoking cigarettes per day: 20.0 Years smoked: 25 Smoking pack-years: 25.00 Smoking status: Former smoker Alcohol intake: never Substance use: never Living arrangements: with family Spiritual care concerns: No <Jackie Brown, MRI SPECIAL PROCEDURES TECHNOLOGIST - Last Filed: 09/22/24 17:36> Exam Narrative: GENERAL: Well-appearing, well-nourished, and in no acute distress. HEAD: Normocephalic, atraumatic. EYES: PERRLA and EOMI. ENT: Nares clear, no rhinorrhea or epistaxis. Mucous membranes moist. Oropharynx without tonsillar hypertrophy exudate or other lesions. NECK: Supple. No adenopathy or masses. CHEST: No respiratory distress. Clear to auscultation. No wheezes rales or rhonchi HEART: Regular rate and rhythm. No murmur heard. Normal peripheral pulses. ABDOMEN: Soft, nontender, nondistended, normal active bowel sounds. MSK: LLE: Mild swelling and tenderness to the lateral ankle. Neurovascular intact distally. No crepitus. No bruising. No deformity RLE: Benign SKIN: Warm, dry, no rash. NEURO: Alert and oriented x4. No focal deficits. PSYCH: Normal mood and affect. <Paul Sotelo PA-C - Last Filed: 09/22/24 20:56> Course Vital Signs Vital signs: Vital Signs Temperature 97.8 F 09/22/24 17:30 Pulse Rate 72 09/22/24 17:30 Respiratory Rate 16 09/22/24 17:30 Blood Pressure 140/70 09/22/24 17:30 Pulse Oximetry 98 09/22/24 17:30 Oxygen Delivery Room Air 09/22/24 17:30 Temperature 97.8 F 09/22/24 17:30 Pulse Rate 72 09/22/24 17:30 Respiratory Rate 18 09/22/24 19:44 Blood Pressure 140/70 09/22/24 17:30 Pulse Oximetry 96 09/22/24 19:44 Oxygen Delivery Room Air 09/22/24 17:30 <Jackie Brown, MRI SPECIAL PROCEDURES TECHNOLOGIST - Last Filed: 09/22/24 17:36> Vital Signs Temperature 97.8 F 09/22/24 17:30 Pulse Rate 72 09/22/24 17:30 Respiratory Rate 16 09/22/24 17:30 Blood Pressure 140/70 09/22/24 17:30 Pulse Oximetry 98 09/22/24 17:30 Oxygen Delivery Room Air 09/22/24 17:30 Temperature 97.8 F 09/22/24 17:30 Pulse Rate 72 09/22/24 17:30 Respiratory Rate 18 09/22/24 19:44 Blood Pressure 140/70 09/22/24 17:30 Pulse Oximetry 96 09/22/24 19:44 Oxygen Delivery Room Air 09/22/24 17:30 <Paul Sotelo PA-C - Last Filed: 09/22/24 20:56> MDM - Extremity Injury (Lower) MDM Narrative Medical decision making narrative: This is a 69-year-old female who presents to the ED for chief complaint of mechanical fall on left foot injury. Vitals are normal. Exam shows mild swelling and mild tenderness to left lateral ankle. No crepitus or deformity. Left lower extremity x-rays show no acute osseous findings. Presentation consistent with ankle sprain. Patient was placed in [place] wrap. . Crutches given for assistance with ambulation. Patient will be discharged in stable condition. Supportive measures discussed and return precautions given. Patient is understanding and agreeable with plan for discharge with PCP follow-up. <Paul Sotelo PA-C - Last Filed: 09/22/24 20:56> Discharge Plan Discharge Clinical Impression: Ankle sprain and strain <Jackie Brown APRN - Last Filed: 09/22/24 17:36> Patient Disposition: Home, Self-Care <Jackie Brown APRN - Last Filed: 09/22/24 17:36> Condition: Stable <Jackie Brown APRN - Last Filed: 09/22/24 17:36> Instructions: Antibiotic Form, Ankle Sprain (ED) <Jackie Brown APRN - Last Filed: 09/22/24 17:36> Additional Instructions: Your exam today shows no fractures. This is probably ankle sprain which will resolve slowly on its own. Keep the ankle wrapped and use crutches/boot as needed. Follow-up with your PCP. If you have any new or worsening symptoms please return to the ER for further evaluation. <Jackie Brown APRN - Last Filed: 09/22/24 17:36> Patient Language: Mosotho <Jackie Brown APRN - Last Filed: 09/22/24 17:36> Prescriptions: No Action fluticasone furoate-vilanterol [Breo Ellipta] 100-25 mcg/dose blister with device 1 inh INHALATION DAILY metformin 500 mg tablet 500 mg PO BID losartan 50 mg tablet 50 mg PO DAILY ropinirole 3 mg tablet 3 tablet PO DAILY buspirone 15 mg tablet 15 tablet PO DAILY Paxlovid 150 mg x 2- 100 mg tablet See Rx Instructions .ROUTE .COMPLEX Qty: 30 0RF Rx Instructions: take TWO 150 mg tablets of nirmatrelvir with ONE 100 mg tablet of ritonavir twice daily for 5 days rosuvastatin 10 mg tablet 20 mg PO DAILY esomeprazole magnesium [Nexium] 20 mg capsule,delayed release(DR/EC) 40 mg PO DAILY aspirin [Adult Aspirin Regimen] 81 mg tablet,delayed release (DR/EC) 81 mg PO DAILY citalopram 20 mg tablet 40 mg PO DAILY metoprolol tartrate 25 mg tablet 25 mg PO BID multivitamin Tablet 1 tablet PO DAILY <Jackie Brown APRN - Last Filed: 09/22/24 17:36> Follow-up/Referrals: Harry,Parth Garza MD [Primary Care Provider] - <Jackie Brown APRN - Last Filed: 09/22/24 17:36> Time of Disposition: 20:18 <Jackie Brown APRN - Last Filed: 09/22/24 17:36> 20:18 <Paul Sotelo PA-C - Last Filed: 09/22/24 20:56>
[2024-09-22 19:44] VITALS: RESP 18; O2SAT 96
--- NOTE | 2024-09-22 19:50 | PC.NURSE ---
Pt states this morning she slipped in a puddle of water in her house and fell and has had left foot pain since. Pt c/o pain on the top and bottom of her foot when walking and slight bruising to the back of her left ankle. Pt denies hitting her head and LOC
[2024-09-22] MEDS: HYDROcodone/acetaminophen (*CRX) 5-325 MG TABLET 1 TAB PO (20:15)
[2024-09-22 20:32] VITALS: BP 132/82; PULSE 84; RESP 18; O2SAT 97
== END 2024-09-22 20:27 | disposition home or self-care (01) ==
LOC: ANHED 20:32
PROVIDERS: Emergency Provider Physician Assistant; PCP Family Medicine
DX: S93.402A Sprain of unspecified ligament of left ankle, initial encounter (principal); S96.912A Strain of unspecified muscle and tendon at ankle and foot level, left foot, initial encounter; I25.10 Atherosclerotic heart disease of native coronary artery without angina pectoris; I10 Essential (primary) hypertension; J44.9 Chronic obstructive pulmonary disease, unspecified; E11.9 Type 2 diabetes mellitus without complications; E78.5 Hyperlipidemia, unspecified; G47.33 Obstructive sleep apnea (adult) (pediatric); G89.4 Chronic pain syndrome; K21.9 Gastro-esophageal reflux disease without esophagitis; F41.9 Anxiety disorder, unspecified; Z95.1 Presence of aortocoronary bypass graft; Z95.5 Presence of coronary angioplasty implant and graft; Z96.612 Presence of left artificial shoulder joint; Z96.653 Presence of artificial knee joint, bilateral; Z86.0100 Personal history of colon polyps, unspecified; Z87.891 Personal history of nicotine dependence; Z90.710 Acquired absence of both cervix and uterus; Z79.84 Long term (current) use of oral hypoglycemic drugs; Z79.82 Long term (current) use of aspirin; Z79.899 Other long term (current) drug therapy; W01.0XXA Fall on same level from slipping, tripping and stumbling without subsequent striking against object, initial encounter
CPT/HCPCS: 73630; 99283; A9270

== ENCOUNTER → 2024-10-02 11:23 | Outpatient (CLI) | payer MEDICARE, SELFPAY ==
--- NOTE | ~2024-10-02 | XR_ITS ---
EXAM: XR shoulder RT min 2V DATE: 10/02/2024 11:40 HISTORY: M19.011 - Primary osteoarthritis, right shoulder . COMPARISON: 10/03/2021, images only. FINDINGS: Decreased mineralization. No fracture or dislocation. No lytic or blastic lesion. Moderate degenerative change at the AC joint and glenohumeral joint. Soft tissue calcification over the poste rior lateral rotator cuff, less well seen in today's examination. No erosion or periosteal change. Me josé luis sternotomy wires and mediastinal surgical clips. Fractured sternotomy wire that remains in stabl e position. IMPRESSION: Moderate polyarticular right shoulder osteoarthritis. Calcific rotator cuff tendinitis. Reviewed, dictated and finalized at location [facility] COORDINATOR IMPRESSION: Moderate polyarticular right shoulder osteoarthritis. Calcific rota tor cuff tendinitis.
--- OUTSIDE RECORDS SUMMARY | 2024-10-02 12:21 | XMS_ITS | Encounter Summary ---
Author Organization [facility] Address [address] [place] [address] Phone Care Team Providers Care Hole Digger Operator Name Role Phone Parth Mcdonald MD Primary Care Provider [phone] Braydon Ford MD Unavailable Reyes Byrnes MD Unavailable [phone] Shayan Garcia APRN, MALACHI Unavailable + [phone] Encounter Details Date Type Department Care Team (Latest Contact Info) Description 11/20/2023 Transcribe Orders [facility] [address] [place] [address] [place] [address] [address] Iron deficiency anemia, unspecified iron deficiency anemia type (Primary Dx) Social History Tobacco Use Types Packs/Day Years Used Date Smoking Tobacco: Former Cigarettes 1 30 S tarted: 04/03/2021 Smokeless Tobacco: Never Alcohol Use Standard Drinks/Week Comments Not Currently 0 (1 standard drink = 0.6 oz pur e alcohol) rarely PHQ-2 Answer Date Recorded Total Score - Questions 1-9 0 03/2023 Sexually Active Control Partners Comments Not Currently Comments No Sex and Gender Information Value Date Recorded Sex Assigned at Female 01/26/2024 11:30 PM CDT Legal Sex Female 9:01 PM CDT Gender Identity Female 01/26/2024 11:30 PM CDT Sexual Orientation Not on file 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 Not on file Not on file documented as of this encounter Plan of Treatment Upcoming Encounters Date Type Department Care Team (Late st Contact Info) Description 12/31/2024 10:15 AM CDT Office Visit [facility] - Family Medicine [facility] #2 [place] [address] Parth Mcdonald MD #[address] [address] 01/20/2025 1:00 PM CDT Office Visit [facility] UROLOGY #2 [place] [address] Shayan Garcia APRN, FORESTRY AIDE #2 [place] [address] 03/10/2025 10:00 AM CDT Office Visit [facility] - Pulmonology & Sleep Medicine [facility] #2 [place] [address] Braydon Ford MD #2 [place] [address] Scheduled Orders Name Type Priority Associated Diagnoses Orde r Schedule COMPLETE BLOOD COUNT (CBC) WITH DIFF Lab Routine Iron deficiency anemia, unspecified iron deficiency anemia type Expected: 11/20/2023, Expires: 11/19/2024 IRON,TRANSFERN,CALC.TIB C,%SAT Lab Routine Iron deficiency anemia, unspecified iron deficiency anemia type Expected: 11/20/2023, Expires: 11/19/2024 documented as of this encounter Visit Diagnoses Diagnosis Iron deficiency anemia, unspecified iron deficiency anemia type- Primary documented in this encounter Additional Health Concerns Assessment Noted Time PHQ-9 Depression Total Score: 0 02/08/20 23 2:49 PM CDT documented as of this encounter Care Teams Hole Digger Operator Relationship Specialty Start Date End Date Parth Mcdonald MD #[address] [address] PCP - General Family Medicine 07/08/15 Braydon Ford MD #2 [place] [address] Consulting Physician Pulmonary Disease 07/23/17 Reyes Byrnes MD [address] [facility] 10 [place] [address] Orthopaedic Surgery 07/23/17 Shayan Garcia APRN, MALACHI [address]2 [place] [address] Nurse Practitioner Advanced Practice Nurse 03/03/24 documented as of this encounter
--- OUTSIDE RECORDS SUMMARY | 2024-10-02 12:21 | XMS_ITS | Encounter Summary ---
Author Organization [facility] Address [address] [place] [address] Phone Care Team Providers Care Cardiology Consultants Name Role Phone Parth Mcdonald MD Primary Care Provider [phone] Braydon Ford MD Unavailable Reyes Byrnes MD Unavailable [phone] Shayan Garcia APRN, CNP Unavailable + [phone] Reason for Visit * Reason Comments Medication Refill Encounter Details Date Type Department Care Team (Late st Contact Info) Description 02/16/2021 Refill [facility] Group - Pulmonology & Sleep Medicine [facility] #2 [place] [address] Braydon Ford MD #2 [place] [address] Medication Refill Social History Tobacco Use Types Packs/Day Years Used Date Smoking Tobacco: Former Cigarettes 1 30 1 10/31/1985 - 08/30/2016 Smokeless Tobacco: Never Alcohol Use Standard Drinks/Week Comments Yes 0 (1 standard drink = 0.6 oz pur e alcohol) rarely PHQ-2 Answer Date Recorded Total Score - Questions 1-9 0 05/04 Comments No Sex and Gender Information Value Date Recorded Sex Assigned at Female 01/26/2024 11:30 PM CDT Legal Sex Female 9:01 PM CDT Gender Identity Female 01/26/2024 11:30 PM CDT Sexual Orientation Not on file 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 No / Unsure 02/03/2021 1:05 PM CDT documented as of this encounter Miscellaneous Notes * Telephone Encounter - Meg Aguilar RN - 02/16/2021 1:40 PM CDT Medication failed the protocol, provider to review and approve the medication order if appropriate. Requested Prescriptions Pending Prescriptions Disp Refills Chantix Continuing Month Ori 1 MG Tablet [Pharmacy Med Name: CHANTIX 1 MG CONT MONTH BOX] 56 Tablet1 Sig: TAKE 1 TABLET BY MOUTH 2 TIMES DAILY. There is no refill protocol information for this order documented in this encounter Plan of Treatment Upcoming Encounters Date Type Department Care Team (Late st Contact Info) Description 12/31/2024 10:15 AM CDT [facility] Family Medicine [facility] #2 [place] [address] Parth Mcdonald MD #[address] [address] 01/20/2025 1:00 PM CDT Office Visit [facility] UROLOGY #2 [place] [address] Shayan Garcia, UMBRELLA CUTTER, HEALTH CLUB ATTENDANT #2 [place] [address] 03/10/2025 10:00 AM CDT [facility] #2 [place] [address] Braydon Ford MD #2 [place] [address] documented as of this encounter Visit Diagnoses Not on filedocumented in this encounter Additional Health Concerns Infection Onset Date Last Indicated Resolved Time COVID - 19 09/13/2021 09/13/2021 10/03/2021 12:1 6 AM BOOM STORAGE COVID - 19 12/31/2021 12/31/2021 01/20/2022 12:1 6 AM CDT Assessment Noted Time PHQ-9 Depression Total Score: 0 05/17/20 8:00 AM CDT documented as of this encounter Care Teams Cardiology Consultants Relationship Specialty Start Date End Date Parth Mcdonald MD #[address] [address] PCP - General Family Medicine 07/08/15 Braydon Ford MD #2 [place] [address] Consulting Physician Pulmonary Disease 07/23/17 Reyes Byrnes MD [address] [facility] 162 [facility] 10 [place] [address] Orthopaedic Surgery 07/23/17 Shayan Garcia APRN, HEALTH CLUB ATTENDANT #2 [place] [address] Nurse Practitioner Advanced Practice Nurse 03/03/24 documented as of this encounter
--- OUTSIDE RECORDS SUMMARY | 2024-10-02 12:21 | XMS_ITS | Encounter Summary ---
Author Organization [facility] Address [address] [place] [address] Phone Care Team Providers Care Labor Relations Representative Name Role Phone Parth Mcdonald MD Primary Care Provider [phone] Braydon Ford MD Unavailable Reyes Byrnes MD Unavailable [phone] Shayan Garcia APRN, CNP Unavailable + [phone] Reason for Visit * Reason Comments Medication Refill Encounter Details Date Type Department Care Team (Late st Contact Info) Description 01/16/2021 Refill [facility] PULMONOLOGY #1 [place] [address] Braydon Ford MD #2 [place] [address] Medication Refill Social History Tobacco [...] Description 12/31/2024 10:15 AM CDT Office Visit [facility] - Family Medicine [facility] #2 [place] [address] Parth Mcdonald MD #[address] [address] 01/20/2025 1:00 PM CDT Office Visit [facility]YS[facility] GROUP UROLOGY #2 [place] [address] Shayan Garcia, WELDER 2ND SHIFT, CALL OUT CLERK #2 [place] [address] 03/10/2025 10:00 AM CDT Office Visit [facility] - Pulmonology & Sleep Medicine [facility] #2 [place] [address] Braydon Ford MD #2 [place] [address] documented as of this encounter Visit Diagnoses Not on filedocumented in this encounter Additional Health Concerns Infection Onset Date Last Indicated Resolved Time COVID - 19 09/13/2021 09/13/2021 10/03/2021 12:1 6 AM WET ROASTER COVID - 19 12/31/2021 12/31/2021 01/20/2022 12:1 6 AM CDT Assessment Noted Time PHQ-9 Depression Total Score: 0 05/17/20 8:00 AM CDT documented as of this encounter Care Teams Labor Relations Representative Relationship Specialty Start Date End Date Parth Mcdonald MD #[address] [address] PCP - General Family Medicine 07/08/15 Braydon Ford MD #2 [place] [address] Consulting Physician Pulmonary Disease 07/23/17 Reyes Byrnes MD [address] [facility] [address] [facility] 10 [place] [address] Orthopaedic Surgery 07/23/17 Shayan Garcia APRN, CALL OUT CLERK #2 [place] [address] Nurse Practitioner Advanced Practice Nurse 03/03/24 documented as of this encounter
--- OUTSIDE RECORDS SUMMARY | 2024-10-02 12:21 | XMS_ITS | Encounter Summary ---
Author Organization [facility] Address [address] [place] [address] Phone Care Team Providers Care Apprentice Embalmer Name Role Phone Parth Mcdonald MD Primary Care Provider [phone] Braydon Ford MD Unavailable Reyes Byrnes MD Unavailable [phone] Shayan Garcia APRN, CNP Unavailable + [phone] Reason for Visit * Reason Comments Medication Refill Encounter Details Date Type Department Care Team (Late st Contact Info) Description 08/24/2021 Refill [facility] - Pulmonology & Sleep Medicine [facility] #2 [place] [address] Braydon Ford MD #2 [place] [address] Medication Refill Social History Tobacco Use Types Packs/Day Years Used Date Smoking Tobacco: Former Cigarettes 1 30 S tarted: 04/03/2021 Smokeless Tobacco: Never Alcohol Use Standard Drinks/Week Comments Not Currently 0 (1 standard drink = 0.6 oz pur e alcohol) rarely PHQ-2 Answer Date Recorded Total Score - Questions 1-9 0 12/2020 Sexually Active Control Partners Comments Not Currently [...] have Coronavirus / COVID-19? No / Unsure 07/25/2021 12:05 PM SHIFT STACKER documented as of this encounter Miscellaneous Notes * Telephone Encounter - Virgie Garrett APRN, CNP - 08/24/2021 3:29 PM SHIFT STACKER Medication is on recall as far as I know. She may try nicoderm CQ patches. T STACKER * Telephone Encounter - Meg Aguilar RN - 08/24/2021 1:33 PM SHIFT STACKER Medication failed the protocol, provider to review and approve the medication order if appropriate. Requested Prescriptions Pending Prescriptions Disp Refills varenicline (CHANTIX) 1 MG Tablet [Pharmacy Med Name: VARENICLINE 1 MG TABLET] 56 Tablet 1 Sig: TAKE 1 TABLET BY MOUTH 2 TIMES DAILY. Not Delegated - Smoking Deterrents Protocol Failed - 08/24/2021 1:32 PM Failed - This refill cannot be delegated Passed - Visit with relevant provider in past 6 months or upcoming 90 days Recent Visits Date Type Provider Dept 07/25/21 Office Visit Gosia Birmingham PAC [facility] 07/07/21 Office Visit Parth Mcdonald MD [facility] 04/14/21 Office Visit Braydon Ford MD [facility] Pulm & Sleep [place] [facility] 02/28/21 Office Visit Parth Mcdonald MD [facility] Showing recent visits within past 182 days and meeting all other requirements Future Appointments Date Type Provider Dept 10/17/21 Appointment [facility] Showing future appointments within next 90 days and meeting all other requirements T STACKER documented in this encounter Plan of Treatment Upcoming Encounters Date Type Department Care Team (Late st Contact Info) Description 12/31/2024 10:15 AM CDT Office Visit [facility] - Family Medicine [facility] #2 [facility] [place] [address] Parth Mcdonald MD #[address] [address] 01/20/2025 1:00 PM CDT Office Visit [facility] #2 [facility] [place] [address] Shayan Garcia APRN, AUDIT LEAD #2 [facility] [place] [address] 03/10/2025 10:00 AM CDT Office Visit [facility] - Pulmonology & Sleep Medicine [facility] #[address] [place] [address] Braydon Ford MD #2 [facility] [place] [address] documented as of this encounter Visit Diagnoses Not on filedocumented in this encounter Additional Health Concerns Infection Onset Date Last Indicated Resolved Time COVID - 19 09/13/2021 09/13/2021 10/03/2021 12:1 6 AM SHIFT STACKER COVID - 19 12/31/2021 12/31/2021 01/20/2022 12:1 6 AM CDT Assessment Noted Time PHQ-9 Depression Total Score: 0 07/07/20 21 11:00 AM CDT documented as of this encounter Care Teams Apprentice Embalmer Relationship Specialty Start Date End Date Parth Mcdonald MD #[address] [address] PCP - General Family Medicine 07/08/15 Braydon Ford MD #2 [place] [address] Consulting Physician Pulmonary Disease 07/23/17 Reyes Byrnes MD [address] [facility] 10 [place] [address] Orthopaedic Surgery 07/23/17 Shayan Garcia APRN, AUDIT LEAD #2 [place] [address] Nurse Practitioner Advanced Practice Nurse 03/03/24 documented as of this encounter
--- OUTSIDE RECORDS SUMMARY | 2024-10-02 12:21 | XMS_ITS | Encounter Summary ---
Author Organization [facility] Address [address] [place] [address] Phone Care Team Providers Care Rolfer Name Role Phone Parth Mcdonald MD Primary Care Provider [phone] Braydon Ford MD Unavailable Reyes Byrnes MD Unavailable [phone] Shayan Garcia APRN, CNP Unavailable [phone] Reason for Visit * Reason Comments Medication Refill Encounter Details Date Type Department Care Team (Late st Contact Info) Description 10/03/2023 Refill [facility] - [place] #2 [place] [address] Parth Mcdonald MD #[address] [address] Medication Refill Social History Tobacco Use Types [...] on file documented as of this encounter Miscellaneous Notes * Telephone Encounter - Debi Martin RN - 10/03/2023 10:51 AM CST Medication failed the protocol, provider to review and approve the medication order if appropriate. Requested Prescriptions Pending Prescriptions Disp Refills busPIRone (BUSPAR) 15 MG Tablet [Pharmacy Med Name: BUSPIRONE HCL 15 MG TABLET] 180 Tablet 1 Sig: TAKE 1 TABLET BY MOUTH TWICE A DAY Buspirone (6 Month Refill Only) Protocol Failed - 10/03/2023 12:38 AM Failed - Has an encounter in the past 6 months with a depression or anxiety visit diagnosis Passed - Visit with relevant provider in past 6 months or upcoming 90 days Recent Visits Date Type Provider Dept 05/11/23 Office Visit Sanford Fagan APRN, CAR KNOCKER [facility] Showing recent visits within past 182 days and meeting all other requirements Future Appointments Date Type Provider Dept 12/13/23 Appointment Parth Mcdonald MD [facility] Showing future appointments within next 90 days and meeting all other requirements Passed - Patient has established therapy with Buspirone for at least 6 months ING PLASTERER documented in this encounter Plan of Treatment Upcoming Encounters Date Type Department Care Team (Late st Contact Info) Description 12/31/2024 10:15 AM CDT Office Visit [facility] Medical Group - Family Medicine - [place] #2 [place] [address] Parth Mcdonald MD #[address] [address] 01/20/2025 1:00 PM CDT Office Visit [facility]IAN [facility] UROLOGY #2 [place] [address] Shayan Garcia APRN, CAR KNOCKER #2 [place] [address] 03/10/2025 10:00 AM CDT Office Visit [facility] - Pulmonology & Sleep Medicine - [place] #2 [place] [address] Braydon Ford MD #2 [place] [address] documented as of this encounter Visit Diagnoses Not on filedocumented in this encounter Additional Health Concerns Assessment Noted Time PHQ-9 Depression Total Score: 0 02/08/20 23 2:49 PM CDT documented as of this encounter Care Teams Rolfer Relationship Specialty Start Date End Date Parth Mcdonald MD #[address] [address] PCP - General Family Medicine 07/08/15 Braydon Ford MD #2 [place] [address] Consulting Physician Pulmonary Disease 07/23/17 Reyes Byrnes MD [address] [facility] 10 [place] [address] Orthopaedic Surgery 07/23/17 Shayan Garcia APRN, CAR KNOCKER #2 [place] [address] Nurse Practitioner Advanced Practice Nurse 03/03/24 documented as of this encounter
--- OUTSIDE RECORDS SUMMARY | 2024-10-02 12:21 | XMS_ITS | Encounter Summary ---
Author Organization [facility] Address [address] [place] [address] Phone Care Team Providers Care Director Child Development Center Name Role Phone Parth Mcdonald MD Primary Care Provider [phone] Braydon Ford MD Unavailable Reyes Byrnes MD Unavailable [phone] Shayan Garcia APRN, CNP Unavailable [phone] Reason for Visit * Reason Comments Medication Refill Encounter Details Date Type Department Care Team (Late st Contact Info) Description 02/01/2024 [facility]ill [facility] - [place] #2 [place] [address] Parth Mcdonald MD #[address] [address] Medication Refill Social History Tobacco Use Types Packs/Day Years Used Date Smoking Tobacco: Former Cigarettes 1 30 S tarted: 04/03/2021 Smokeless Tobacco: Never Alcohol Use Standard Drinks/Week Comments Not Currently 0 (1 standard drink = 0.6 oz pur e alcohol) rarely Social Connection and Isolat ion Panel [NHANES] Answer Date Recorded In a typical week, how many times do you talk on the phone with family, friends, or neighbors? More than three times a week 01/16/2024 How often do you get togethe r with friends or relatives? Three times a week 01/16/2024 How often do you attend chur ch or yarsani services? 1 to 4 times per year 01/16/2024 Do you belong to any clubs o r organizations such as evangelical groups, unions, fraternal or athletic groups, or school groups? Yes 01/16/2024 How often do you attend meet ings of the clubs or organizations you belong to? 1 to 4 times per year 01/16/2024 Are you , , di vorced, , never , or living with a partner? 01/16/2024 Overall Financial Resource Strain (CARDIA) Answe r Date Recorded How hard is it for you to pa y for the very basics like food, housing, medical care, and heating? Not very hard 01/16/2024 PHQ-2 Answer Date Recorded Total Score - Questions 1-9 0 0 03/2023 [facility] - Occupational Stress Questionnaire Answer Date Recorded Do you feel stress - tense, restless, nervous, or anxious, or unable to sleep at night because your mind is troubled all the time - these days? Very much 01/16/2024 Exercise Vital Sign Answer Date Recorde d On average, how many days pe r week do you engage in moderate to strenuous exercise (like a brisk walk)? 1 day Minutes of Exercise per Session Not on file 01/16/2024 Hunger Vital Sign Answer Date Recorded Within the past 12 months, y ou worried that your food would run out before you got the money to buy more. Never true 01/16/20 24 Within the past 12 months, t he food you bought just didn't last and you didn't have money to get more. Never true 01/16/2024 PRAPARE - Transportation Answer Date Re corded In the past 12 months, has l ack of transportation kept you from medical appointments or from getting medications? No 01/01 In the past 12 months, has l ack of transportation kept you from meetings, work, or from getting things needed for daily living? No 01/16/2024 Housing Stability Vital Sign Answer Ayush e Recorded In the last 12 months, was t here a time when you were not able to pay the mortgage or rent on time? No 01/16/2024 In the last 12 months, how many places have you lived? 1 01/16/2024 In the last 12 months, was t here a time when you did not have a steady place to sleep or slept in a retirement (including now)? No 01/16/2024 Sexually Active Control Partners Comments Not Currently [...] encounter Miscellaneous Notes * Telephone Encounter - Mercedes Stark RN - 02/01/2024 12:08 PM CDT Medication(s) refilled and signed per [facility] Chronic Medication Refill Standing Order for Pediatricand Adult Patients. Requested Prescriptions Pending Prescriptions Disp Refills rosuvastatin (CRESTOR) 20 MG Tablet [Pharmacy Med Name: ROSUVASTATIN CALCIUM 20 MG TAB] 90 Tablet 2 Sig: TAKE 1 TABLET BY MOUTH EVERY DAY AT NIGHT Hmg CoA Reductase Inhibitors Protocol Passed - 02/01/2024 1:01 AM Passed - Visit with relevant provider in past 12 months or upcoming 90 days Recent Visits Date Type Provider Dept 01/30/24 Telemedicine Parth Mcdonald MD [facility] 01/16/24 Office Visit Parth Mcdonald MD [facility] 12/07/23 Office Visit Sanford Fagan APRN, CNP [facility] 10/11/23 Telemedicine Parth Mcdonald MD [facility] 05/11/23 Office Visit Sanford Fagan APRN, DIAMOND BLENDER [facility] 02/07/23 Office Visit [facility] Showing recent visits within past 365 days and meeting all other requirements Future Appointments No visits were found meeting these conditions. Showing future appointments within next 90 days and meeting all other requirements Passed - Lipid panel in past 12 months LDL Date Value Ref Range Status 02/08/2023 69 5 - 130 mg/dL Final HDL CHOLESTEROL Date Value Ref Range Status 02/08/2023 67.6 >40 mg/dL Final CHOLESTEROL Date Value Ref Range Status 02/08/2023 155 <=200 mg/dL Final TRIGLYCERIDES Date Value Ref Range Status 02/08/2023 93 <150 mg/dL Final VLDL Date Value Ref Range Status 02/08/2023 19 5 - 55 mg/dL Final CHOL/HDL RATIO Date Value Ref Range Status 02/08/2023 2.3 0.0 - 4.4 Final NON-HDL CHOLESTEROL Date Value Ref Range Status 02/08/2023 87.4 <130 mg/dL Final Passed - CMP in past 12 months SODIUM Date Value Ref Range Status 01/26/2024 142 136 - 145 mmol/L Final POTASSIUM Date Value Ref Range Status 01/26/2024 3.4 (L) 3.5 - 5.1 mmol/L Final CHLORIDE Date Value Ref Range Status 01/26/2024 104 98 - 107 mmol/L Final CO2, VENOUS Date Value Ref Range Status 01/26/2024 25 22 - 30 mmol/L Final ANION GAP Date Value Ref Range Status 01/26/2024 16.4 <18.0 mmol/L Final GLUCOSE Date Value Ref Range Status 01/26/2024 99 70 - 99 mg/dL Final BUN Date Value Ref Range Status 01/26/2024 9 (L) 10 - 20 mg/dL Final CREATININE, BLOOD Date Value Ref Range Status 01/26/2024 0.79 0.60 - 1.00 mg/dL Final BUN/CREATININE RATIO Date Value Ref Range Status 01/26/2024 11 (L) 12 - 20 ratio Final TOTAL PROTEIN Date Value Ref Range Status 01/26/2024 7.4 6.3 - 8.2 g/dL Final ALBUMIN Date Value Ref Range Status 01/26/2024 4.2 3.5 - 5.0 g/dL Final A/G RATIO Date Value Ref Range Status 01/26/2024 1.3 1.0 - 2.2 Final CALCIUM Date Value Ref Range Status 01/26/2024 9.2 8.7 - 10.5 mg/dL Final T BILI Date Value Ref Range Status 01/26/2024 0.2 0.2 - 1.2 mg/dL Final SGOT (AST) Date Value Ref Range Status 01/26/2024 16 5 - 34 U/L Final SGPT (ALT) Date Value Ref Range Status 01/26/2024 13 0 - 55 U/L Final ALKALINE PHOSPHATASE Date Value Ref Range Status 01/26/2024 51 40 - 150 U/L Final GFR, EST. NONAFRICAN Date Value Ref Range Status 01/26/2024 >60 >=60 Final GFR, EST. Date Value Ref Range Status 01/26/2024 >60 >=60 Final GFR, ESTIMATED Date Value Ref Range Status 01/26/2024 >60 >=60 Final Comment: Creatinine Clearance is the preferred criteria for selecting drug dose adjustments in renally impaired patients. The GFR is provided as additional pertinent clinical information. GFR is reported in mL/min/1.73 sq m. Calculation based on the Chronic Kidney Disease Epidemiology Collaboration (CKD- EPI) equation refitwithout adjustment for race. IS THE PATIENT REQUIRED TO BE FASTING? Date Value Ref Range Status 02/08/2023 No Final documented in this encounter Plan of Treatment Upcoming Encounters Date Type Department Care Team (Late st Contact Info) Description 12/31/2024 10:15 AM CDT Office Visit [facility] - Family Medicine [facility] [place] [address] Parth Mcdonald MD #[address] [address] 01/20/2025 1:00 PM CDT Office Visit [facility] UROLOGY #2 [place] [address] Shayan Garcia APRN, DIAMOND BLENDER #2 [place] [address] 03/10/2025 10:00 AM CDT [facility] - Pulmonology & Sleep Medicine [facility]2 [place] [address] Braydon Ford MD #2 [place] [address] documented as of this encounter Visit Diagnoses Not on filedocumented in this encounter Additional Health Concerns Assessment Noted Time PHQ-9 Depression Total Score: 0 02/08/20 23 2:49 PM CDT documented as of this encounter Care Teams Director Child Development Center Relationship Specialty Start Date End Date Parth Mcdonald MD #[address] [address] PCP - General Family Medicine 07/08/15 Braydon Ford MD #2 [place] [address] Consulting Physician Pulmonary Disease 07/23/17 Reyes Byrnes MD [address] [facility] [address] [place] [address] Orthopaedic Surgery 07/23/17 Shayan Garcia APRN, DIAMOND BLENDER [address]2 [place] [address] Nurse Practitioner Advanced Practice Nurse 03/03/24 documented as of this encounter
--- OUTSIDE RECORDS SUMMARY | 2024-10-02 12:21 | XMS_ITS | Encounter Summary ---
Author Organization [facility] Address [address] [place] [address] Phone Care Team Providers Care Medical Equipment Technician Name Role Phone Parth Mcdonald MD Primary Care Provider [phone] Braydon Ford MD Unavailable Reyes Byrnes MD Unavailable [phone] Shayan Garcia APRN, CNP Unavailable [phone] Reason for Visit * Reason Comments Medication Refill Encounter Details Date Type Department Care Team (Late st Contact Info) Description 03/14/2021 Refill [facility] - Pulmonology & Sleep Medicine [facility] #2 [place] [address] Braydon Ford MD #2 [place] [address] Medication Refill Social History Tobacco Use Types Packs/Day Years Used Date Smoking Tobacco: Former Cigarettes 1 30 1 10/31/1985 - 08/30/2016 Smokeless Tobacco: Never Alcohol Use Standard Drinks/Week Comments Not Currently 0 (1 standard drink = 0.6 oz pur e alcohol) rarely PHQ-2 Answer Date Recorded Total Score - Questions 1-9 0 05/04 Sexually Active Control Partners Comments Not Currently [...] have Coronavirus / COVID-19? No / Unsure 02/28/2021 10:35 AM CDT documented as of this encounter Plan of Treatment Upcoming Encounters Date Type Department Care Team (Late st Contact Info) Description 12/31/2024 10:15 AM CDT Office Visit [facility] Medical [facility] - Family Medicine [facility] [address]2 [place] [address] Parth Mcdonald MD #[address] [address] 01/20/2025 1:00 PM CDT Office Visit [facility]IAN [facility] UROLOGY #2 [place] [address] Shayan Garcia, SEWER PIPE OFFBEARER, DESKTOP ADMINISTRATOR #2 [place] [address] 03/10/2025 10:00 AM CDT Office Visit [facility] Medical [facility] - Pulmonology & Sleep Medicine [facility] #2 [place] [address] Braydon Ford MD #2 [place] [address] documented as of this encounter Visit Diagnoses Not on filedocumented in this encounter Additional Health Concerns Infection Onset Date Last Indicated Resolved Time COVID - 19 09/13/2021 09/13/2021 10/03/2021 12:1 6 AM SPOKE MAKER COVID - 19 12/31/2021 12/31/2021 01/20/2022 12:1 6 AM CDT Assessment Noted Time PHQ-9 Depression Total Score: 0 05/17/20 8:00 AM CDT documented as of this encounter Care Teams Medical Equipment Technician Relationship Specialty Start Date End Date Parth Mcdonald MD #[address] [address] PCP - General Family Medicine 07/08/15 Braydon Ford MD #2 [place] [address] Consulting Physician Pulmonary Disease 07/23/17 Reyes Byrnes MD [address] [facility] [address] [place] [address] Orthopaedic Surgery 07/23/17 Shayan Garcia APRN, DESKTOP ADMINISTRATOR #2 [place] [address] Nurse Practitioner Advanced Practice Nurse 03/03/24 documented as of this encounter
--- OUTSIDE RECORDS SUMMARY | 2024-10-02 12:21 | XMS_ITS | Encounter Summary ---
Author Organization [facility] Address [address] [place] [address] Phone Care Team Providers Care Statement Clerks Supervisor Name Role Phone Parth Mcdonald MD Primary Care Provider [phone] Braydon Ford MD Unavailable Reyes Byrnes MD Unavailable [phone] Shayan Garcia APRN, CNP Unavailable + [phone] Reason for Visit * Reason Comments Medication Refill Encounter Details Date Type Department Care Team (Late st Contact Info) Description 03/05/2021 Refill [facility]IAN GROUP PULMONOLOGY #1 [place] [address] Braydon Ford MD #2 [place] [address] Medication Refill Social History Tobacco [...] Description 12/31/2024 10:15 AM CDT Office [facility] Medical [facility] - Family Medicine [facility] #2 [place] [address] Parth Mcdonald MD #[address] [address] 01/20/2025 1:00 PM CDT Office Visit [facility] UROLOGY #2 [place] [address] Shayan Garcia, FINANCE ADMIN, RESOURCE EFFICIENCY MANAGER [address]2 [place] [address] 03/10/2025 10:00 AM CDT Office Visit [facility] - Pulmonology & Sleep Medicine [facility] #2 [place] [address] Braydon Ford MD #2 [place] [address] documented as of this encounter Visit Diagnoses Not on filedocumented in this encounter Additional Health Concerns Infection Onset Date Last Indicated Resolved Time COVID - 19 09/13/2021 09/13/2021 10/03/2021 12:1 6 AM SPORTS CENTRE MANAGER COVID - 19 12/31/2021 12/31/2021 01/20/2022 12:1 6 AM CDT Assessment Noted Time PHQ-9 Depression Total Score: 0 05/17/20 8:00 AM CDT documented as of this encounter Care Teams Statement Clerks Supervisor Relationship Specialty Start Date End Date Parth Mcdonald MD #[address] [address] PCP - General Family Medicine 07/08/15 Braydon Ford MD #2 [place] [address] Consulting Physician Pulmonary Disease 07/23/17 Reyes Byrnes MD [address] [facility] 10 [place] [address] Orthopaedic Surgery 07/23/17 Shayan Garcia APRN, MALACHI [address]2 [place] [address] Nurse Practitioner Advanced Practice Nurse 03/03/24 documented as of this encounter
--- OUTSIDE RECORDS SUMMARY | 2024-10-02 12:21 | XMS_ITS | Encounter Summary ---
Author Organization [facility] Address [address] [place] [address] Phone Care Team Providers Care Supplier Quality Engineering Manager Name Role Phone Parth Mcdonald MD Primary Care Provider [phone] Braydon Ford MD Unavailable Reyes Byrnes MD Unavailable [phone] Shayan Garcia APRN, CNP Unavailable [phone] Reason for Visit * Reason Comments Medication Refill Encounter Details Date Type Department Care Team (Late st Contact Info) Description 02/07/2024 Refill [facility] - [facility] - [place] #2 [place] [address] Parth Mcdonald MD #[address] [address] Medication Refill Social History Tobacco Use Types [...] often do you attend chur ch or roman catholic services? 1 to 4 times per year 01/16/2024 Do you belong to any clubs o r organizations such as worship groups, unions, fraternal or athletic groups, or [...] Score - Questions 1-9 0 0 03/2023 [facility] Occupat ional Health - Occupational Stress [...] place to sleep or slept in a mcfp (including now)? No 01/16/2024 Sexually Active Control [...] Telephone Encounter - Debi Martin RN - 02/07/2024 10:41 AM CDT Medication(s) refilled and signed per [facility] Chronic Medication Refill Standing Order for Pediatricand Adult Patients. Requested Prescriptions Pending Prescriptions Disp Refills metoprolol tartrate (LOPRESSOR) 25 MG Tablet [Pharmacy Med Name: METOPROLOL TARTRATE 25 MG TAB] 180Tablet 1 Sig: TAKE 1 TABLET BY MOUTH TWICE A DAY Beta-Blockers Protocol Passed - 02/07/2024 12:58 AM Passed - BP on record in the past year Clinician-entered: BP Readings from Last 3 Encounters: 01/27/24 133/74 01/16/24 130/80 01/03/24 110/72 Patient-entered: No data recorded Passed - Visit with relevant provider in past 12 months or upcoming 90 days Recent Visits Date Type Provider Dept 01/30/24 Telemedicine Parth Mcdonald MD [facility] 01/16/24 Office Visit Parth Mcdonald MD [facility] 12/07/23 Office Visit Sanford Fagan APRN, MALACHI [facility] 10/11/23 Telemedicine [facility] Mcdonald MD [facility] 05/11/23 Office Visit Sanford Fagan APRN, MALACHI [facility] 02/07/23 Office Visit Parth Mcdonald MD [facility] Showing recent visits within past 365 days and meeting all other requirements Future Appointments No visits were found meeting these conditions. Showing future appointments within next 90 days and meeting all other requirements documented in this encounter Plan of Treatment Upcoming Encounters Date Type Department Care Team (Late st Contact Info) Description 12/31/2024 10:15 AM CDT Office Visit [facility] Medical [facility] - Family Medicine [facility] #2 [place] [address] Parth Mcdonald MD #[address] [address] 01/20/2025 1:00 PM CDT Office Visit [facility] #2 [facility] [place] [address] Shayan Garcia APRN, MACHINE SHORTHAND TEACHER #2 [place] [address] 03/10/2025 10:00 AM CDT Office Visit [facility] - Pulmonology & Sleep Medicine [facility] #2 [place] [address] Braydon Ford MD #2 [place] [address] documented as of this encounter Visit Diagnoses Diagnosis Essential hypertension Unspecified essential hypertension documented in this encounter Additional Health Concerns Assessment Noted Time PHQ-9 Depression Total Score: 0 02/08/20 2:49 PM CDT documented as of this encounter Care Teams Supplier Quality Engineering Manager Relationship Specialty Start Date End Date Parth Mcdonald MD #[address] [address] PCP - General Family Medicine 07/08/15 Braydon Ford MD #2 [place] [address] Consulting Physician Pulmonary Disease 07/23/17 Reyes Byrnes MD [address] [address] Orthopaedic Surgery 07/23/17 Shayan Garcia, GYROSCOPE REPAIRER, MACHINE SHORTHAND TEACHER #[address] [place] [address] Nurse Practitioner Advanced Practice Nurse 03/03/24 documented as of this encounter
--- OUTSIDE RECORDS SUMMARY | 2024-10-02 12:21 | XMS_ITS | Encounter Summary ---
Author Organization [facility] Address [address] [place] [address] Phone Care Team Providers Care Addiction Therapist Name Role Phone Parth Mcdonald MD Primary Care Provider [phone] Braydon Ford MD Unavailable Reyes Byrnes MD Unavailable [phone] Shayan Garcia APRN, CNP Unavailable [phone] Reason for Visit * Reason Comments Medication Refill Encounter Details Date Type Department Care Team (Late st Contact Info) Description 01/25/2024 Refill [facility] - [facility] Medicine - [place] #2 [place] [address] Parth Mcdonald MD #[address] [address] Medication Refill Social History Tobacco Use Types [...] often do you attend chur ch or nondenominational services? 1 to 4 times per year 01/16/2024 Do you belong to any clubs o r organizations such as cheondoism groups, unions, fraternal or athletic groups, or [...] Score - Questions 1-9 0 0 03/2023 [facility] of Occupat ional Health - Occupational Stress [...] place to sleep or slept in a fpc (including now)? No 01/16/2024 Sexually Active Control [...] Telephone Encounter - Debi Martin RN - 01/25/2024 11:39 AM CDT Medication(s) refilled and signed per [facility] Chronic Medication Refill Standing Order for Pediatricand Adult Patients. Requested Prescriptions Pending Prescriptions Disp Refills losartan (COZAAR) 50 MG Tablet [Pharmacy Med Name: LOSARTAN POTASSIUM 50 MG TAB] 90 Tablet 3 Sig: TAKE 1 TABLET BY MOUTH EVERY DAY ARB Protocol Passed - 01/25/2024 12:56 AM Passed - Serum potassium on record in past 12 months POTASSIUM Date Value Ref Range Status 10/05/2023 4.1 3.5 - 5.1 mmol/L Final Passed - BP on record in the past year Clinician-entered: BP Readings from Last 3 Encounters: 01/16/24 130/80 01/03/24 110/72 12/07/23 112/72 Patient-entered: No data recorded Passed - Visit with relevant provider in past year or upcoming 90 days Recent Visits Date Type Provider Dept 01/16/24 Office Visit Parth Mcdonald MD [facility] 12/07/23 Office Visit Sanford Fagan APRN, MALACHI [facility] 10/11/23 Telemedicine Parth Mcdonald MD [facility] 05/11/23 Office Visit Sanford Fagan APRN, MALACHI [facility] 02/07/23 Office Visit Parth Mcdonald MD [facility] Showing recent visits within past 365 days and meeting all other requirements Future Appointments No visits were found meeting these conditions. Showing future appointments within next 90 days and meeting all other requirements Passed - GFR on record in past 12 months GFR, EST. NONAFRICAN Date Value Ref Range Status 10/05/2023 >60 >=60 Final metFORMIN (GLUCOPHAGE) 500 MG Tablet [Pharmacy Med Name: METFORMIN HCL 500 MG TABLET] 180 Tablet 1 Sig: TAKE 1 TABLET BY MOUTH TWICE A DAY WITH FOOD Biguanides Protocol Passed - 01/25/2024 12:56 AM Passed - Visit with relevant provider in past 6 months or upcoming 90 days Recent Visits Date Type Provider Dept 01/16/24 Office Visit Parth Mcdonald MD [facility] 12/07/23 Office Visit Sanford Fagan APRN, MALACHI [facility] 10/11/23 Telemedicine Parth Mcdonald MD [facility] Showing recent visits within past 182 days and meeting all other requirements Future Appointments No visits were found meeting these conditions. Showing future appointments within next 90 days and meeting all other requirements Passed - HgA1C on record in past 6 months HGB-A1C Date Value Ref Range Status 12/07/2023 6.0 4 - 6 % Final Passed - GFR on record in past 6 months GFR, EST. NONAFRICAN Date Value Ref Range Status 10/05/2023 >60 >=60 Final documented in this encounter Plan of Treatment Upcoming Encounters Date Type Department Care Team (Late st Contact Info) Description 12/31/2024 10:15 AM CDT Office Visit [facility] Medical Group - Family Medicine - [place] #2 [place] [address] Parth Mcdonald MD #[address] [address] 01/20/2025 1:00 PM CDT Office Visit [facility] UROLOGY #2 [place] [address] Shayan Garcia APRN, LOFT WORKER HEAD #2 [place] [address] 03/10/2025 10:00 AM CDT Office Visit [facility] Group - Pulmonology & Sleep Medicine - [place] #2 [place] [address] Braydon Ford MD #2 [place] [address] documented as of this encounter Visit Diagnoses Not on filedocumented in this encounter Additional Health Concerns Assessment Noted Time PHQ-9 Depression Total Score: 0 02/08/20 23 2:49 PM CDT documented as of this encounter Care Teams Addiction Therapist Relationship Specialty Start Date End Date Parth Mcdonald MD #[address] [address] PCP - General Family Medicine 07/08/15 Braydon Ford MD #2 [place] [address] Consulting Physician Pulmonary Disease 07/23/17 Reyes Byrnes MD [address] [facility] 10 [place] [address] Orthopaedic Surgery 07/23/17 Shayan Garcia APRN, LOFT WORKER HEAD #2 [place] [address] Nurse Practitioner Advanced Practice Nurse 03/03/24 documented as of this encounter
--- OUTSIDE RECORDS SUMMARY | 2024-10-02 12:21 | XMS_ITS | Encounter Summary ---
Author Organization [facility] Address [address] [place] [address] Phone Care Team Providers Care Setup Operator Name Role Phone Parth Mcdonald MD Primary Care Provider [phone] Braydon Ford MD Unavailable Reyes Byrnes MD Unavailable [phone] Shayan Garcia APRN, CNP Unavailable [phone] Reason for Visit * Reason Comments Medication Refill Encounter Details Date Type Department Care Team (Late st Contact Info) Description 12/21/2020 [facility]ill [facility] - [place] [address]2 [place] [address] Parth Mcdonald MD #[address] [address] Medication Refill Social History Tobacco Use Types [...] have Coronavirus / COVID-19? No / Unsure 12/06/2020 7:14 AM CDT documented as of this encounter Miscellaneous Notes * Telephone Encounter - Debi Martin RN - 12/22/2020 9:14 AM CDT Medication failed the protocol, provider to review and approve the medication order if appropriate. Requested Prescriptions Pending Prescriptions Disp Refills busPIRone (BUSPAR) 15 MG Tablet [Pharmacy Med Name: BUSPIRONE HCL 15 MG TABLET] 180 Tablet 3 Sig: TAKE 1 TABLET BY MOUTH 2 TIMES DAILY. [facility] Not Delegated - Psychiatry: Anxiolytics/Hypnotics Failed - 12/21/2020 9:34 AM Failed - This refill cannot be delegated Passed - Valid encounter within last 6 months Past Office Visits Recent Outpatient Visits 3 weeks ago Chronic narcotic use [facility] - Parth Lindo MD 1 month ago Flank pain [facility] Family [facility] - Parth Lindo MD 3 months ago Acute low back pain with sciatica, sciatica laterality unspecified, unspecified back pain laterality [facility] - Family Medicine - [place] [facility] APN, MALACHI 4 months ago Centrilobular emphysema (HCC) [facility] Family [facility] - [place] APN, MALACHI 7 months ago Insomnia, unspecified type [facility] - Parth Lindo MD Upcoming Appointments Future Appointments In 2 months Parth Mcdonald MD [facility] Family [facility] In 3 months Braydon Ford MD [facility] - Pulmonology & Sleep Medicine [facility] NURSING SECRETARY - Recent and Past Visits Recent Visits Date Type Provider Dept 11/29/20 Office Visit Parth Mcdonald MD [facility] 10/26/20 Office Visit Parth Mcdonald MD [facility] 09/10/20 Telemedicine Sanford Fagan APN, INVESTMENT MANAGER [facility] [place] 08/24/20 Office Visit Sanford Fagan APN, INVESTMENT MANAGER [facility] [place] 05/17/20 Office Visit Parth Mcdonald MD [facility] 02/12/20 Office Visit Parth Mcdonald MD [facility] 12/25/19 Telemedicine Parth Mcdonald MD [facility] Showing recent visits within past 460 days with a meds authorizing provider and meeting all other requirements Future Appointments Date Type Provider Dept 02/28/21 Appointment Parth Mcdonald MD [facility] Showing future appointments within next 90 days with a meds authorizing provider and meeting all other requirements documented in this encounter Plan of Treatment Upcoming Encounters Date Type Department Care Team (Late st Contact Info) Description 12/31/2024 10:15 AM CDT Office Visit [facility] Family [facility] #2 [place] [address] Parth Mcdonald MD #[address] [address] 01/20/2025 1:00 PM CDT Office Visit [facility] #2 [place] [address] Shayan Garcia APRN, INVESTMENT MANAGER [address]2 [place] [address] 03/10/2025 10:00 AM CDT Office Visit [facility] - Pulmonology & Sleep Medicine [facility] #2 [place] [address] Braydon Ford MD #2 [place] [address] documented as of this encounter Visit Diagnoses Not on filedocumented in this encounter Additional Health Concerns Infection Onset Date Last Indicated Resolved Time COVID - 19 09/13/2021 09/13/2021 10/03/2021 12:1 6 AM COOPERATIVE MANAGER COVID - 19 12/31/2021 12/31/2021 01/20/2022 12:1 6 AM CDT Assessment Noted Time PHQ-9 Depression Total Score: 0 05/17/20 8:00 AM CDT documented as of this encounter Care Teams Setup Operator Relationship Specialty Start Date End Date Parth Mcdonald MD #[address] [address] PCP - General Family Medicine 07/08/15 Braydon Ford MD #2 [place] [address] Consulting Physician Pulmonary Disease 07/23/17 Reyes Byrnes MD [address] [facility] [address] [place], [place] [address] [phone] Orthopaedic Surgery 07/23/17 Shayan Garcia APRN, INVESTMENT MANAGER [address] [place] [address] Nurse Practitioner Advanced Practice Nurse 03/03/24 documented as of this encounter
--- OUTSIDE RECORDS SUMMARY | 2024-10-02 12:21 | XMS_ITS | Encounter Summary ---
Author Organization [facility] Address [address] [place] [address] Phone Care Team Providers Care Graduate Studies Dean Name Role Phone Parth Mcdonald MD Primary Care Provider [phone] Braydon Ford MD Unavailable Reyes Byrnes MD Unavailable [phone] Shayan Garcia APRN, CNP Unavailable [phone] Reason for Visit * Reason Comments Medication Refill Encounter Details Date Type Department Care Team (Late st Contact Info) Description 12/05/2020 Refill [facility] - [place] [address]2 [place] [address] Parth Mcdonald MD #[address] [address] Medication Refill Social History Tobacco Use Types [...] encounter Miscellaneous Notes * Telephone Encounter - Emily Gay RN - 12/06/2020 3:00 PM CDT Medication failed the protocol, provider to review and approve the medication order if appropriate. Requested Prescriptions Pending Prescriptions Disp Refills citalopram (CeleXA) 40 MG Tablet [Pharmacy Med Name: CITALOPRAM HBR 40 MG TABLET] 90 Tablet 3 Sig: TAKE ONE TABLET BY MOUTH ONCE DAILY Not Delegated - Psychiatry: Antidepressants Failed - 12/05/2020 9:19 AM Failed - This refill cannot be delegated Passed - Valid encounter within last 12 months Past Office Visits Recent Outpatient Visits 1 week ago Chronic narcotic use [facility] Family [facility] - Parth Lindo MD 1 month ago Flank pain [facility] - Parth Lindo MD 2 months ago Acute low back pain with sciatica, sciatica laterality unspecified, unspecified back pain laterality [facility] Medical [facility] - [place] APN, CNP 3 months ago Centrilobular emphysema (HCC) [facility] - [place] APN, CNP 6 months ago Insomnia, unspecified type [facility] - Parth Lindo MD Upcoming Appointments Future Appointments In 2 months Parth Mcdonald MD [facility] Medical [facility] - Family Medicine [facility] In 4 months Braydon Ford MD [facility]UL[facility], [facility] POWDER AND PRIMER CANNING LEADER - Recent and Past Visits Recent Visits Date Type Provider Dept 11/29/20 Office Visit Parth Mcdonald MD [facility] 10/26/20 Office Visit Parth Mcdonald MD [facility] 09/10/20 Telemedicine Sanford Fagan APN, SOFTWARE DESIGN ANALYST [facility] 08/24/20 Office Visit Sanford Fagan APN, SOFTWARE DESIGN ANALYST [facility] 05/17/20 Office Visit Parth Mcdonald MD [facility] 02/12/20 Office Visit Parth Mcdonald MD [facility] 12/25/19 Telemedicine Parth Mcdonald MD [facility] 09/16/19 Office Visit Parth Mcdonald MD [facility] Showing recent visits within past 460 days with a meds authorizing provider and meeting all other requirements Future Appointments Date Type Provider Dept 02/28/21 Appointment Parth Mcdonald MD [facility] Showing future appointments within next 90 days with a meds authorizing provider and meeting all other requirements documented in this encounter Plan of Treatment Upcoming Encounters Date Type Department Care Team (Late st Contact Info) Description 12/31/2024 10:15 AM CDT Office Visit [facility] Medical [facility] - Family [facility] [address] [address] Parth Mcdonald MD #[address] [address] 01/20/2025 1:00 PM CDT Office Visit [facility] [address] [address] Shayan Garcia APRN, SOFTWARE DESIGN ANALYST [address]2 [place] [address] 03/10/2025 10:00 AM CDT [facility] #2 [place] [address] Braydon Ford MD #2 [place] [address] documented as of this encounter Visit Diagnoses Not on filedocumented in this encounter Additional Health Concerns Infection Onset Date Last Indicated Resolved Time COVID - 19 09/13/2021 09/13/2021 10/03/2021 12:1 6 AM CARE ANALYST COVID - 19 12/31/2021 12/31/2021 01/20/2022 12:1 6 AM CDT Assessment Noted Time PHQ-9 Depression Total Score: 0 05/17/20 8:00 AM CDT documented as of this encounter Care Teams Graduate Studies Dean Relationship Specialty Start Date End Date Parth Mcdonald MD [address]2 [place] [address] PCP - General Family Medicine 07/08/15 Braydon Ford MD [address]2 [place] [address] Consulting Physician Pulmonary Disease 07/23/17 Reyes Byrnes MD [address] [facility] [address] [place] [address] Orthopaedic Surgery 07/23/17 Shayan Garcia APRN, SOFTWARE DESIGN ANALYST [address] [place] [address] Nurse Practitioner Advanced Practice Nurse 03/03/24 documented as of this encounter
--- OUTSIDE RECORDS SUMMARY | 2024-10-02 12:21 | XMS_ITS | Encounter Summary ---
Author Organization [facility] Address [address] [place] [address] Phone Care Team Providers Care Ios Software Engineer Name Role Phone Parth Mcdonald MD Primary Care Provider [phone] Braydon Ford MD Unavailable Reyes Byrnes MD Unavailable [phone] Shayan Garcia APRN, CNP Unavailable [phone] Reason for Visit * Reason Comments Medication Refill Encounter Details Date Type Department Care Team (Late st Contact Info) Description 07/04/2021 Refill [facility] - Pulmonology & Sleep Medicine [facility] #2 [place] [address] Braydon Ford MD [address]2 [place] [address] Medication Refill Social History Tobacco Use Types Packs/Day Years Used Date Smoking Tobacco: Some Days Cigarettes 10 02 Started: 04/03/2021 Smokeless Tobacco: Never Alcohol Use Standard [...] have Coronavirus / COVID-19? No / Unsure 07/07/2021 12:04 PM CDT documented as of this encounter Plan of Treatment Upcoming Encounters Date Type Department Care Team (Late st Contact Info) Description 12/31/2024 10:15 AM CDT Office Visit [facility] Medical [facility] - Family Medicine [facility] #2 [place] [address] Parth Mcdonald MD #[address] [address] 01/20/2025 1:00 PM CDT Office Visit [facility] UR[facility]Y #2 [place] [address] Shayan Garcia, BRAKE COUPLER ROAD FREIGHT, JAVA INTEGRATION DEVELOPER #2 [place] [address] 03/10/2025 10:00 AM CDT Office Visit [facility] Medical [facility] - Pulmonology & Sleep Medicine [facility] [address]2 [place] [address] Braydon Ford MD #2 [place] [address] documented as of this encounter Visit Diagnoses Not on filedocumented in this encounter Additional Health Concerns Infection Onset Date Last Indicated Resolved Time COVID - 19 09/13/2021 09/13/2021 10/03/2021 12:1 6 AM INFORMATION MANAGEMENT MANAGER COVID - 19 12/31/2021 12/31/2021 01/20/2022 12:1 6 AM CDT Assessment Noted Time PHQ-9 Depression Total Score: 0 05/17/20 8:00 AM CDT documented as of this encounter Care Teams Ios Software Engineer Relationship Specialty Start Date End Date Parth Mcdonald MD #[address] [address] PCP - General Family Medicine 07/08/15 Braydon Ford MD #2 [place] [address] Consulting Physician Pulmonary Disease 07/23/17 Reyes Byrnes MD [address] [facility] [address] [place] [address] Orthopaedic Surgery 07/23/17 Shayan Garcia APRN, CNP #2 [place] [address] Nurse Practitioner Advanced Practice Nurse 03/03/24 documented as of this encounter
--- OUTSIDE RECORDS SUMMARY | 2024-10-02 12:21 | XMS_ITS | Encounter Summary ---
Author Organization [facility] Address [address] [place] [address] Phone Care Team Providers Care Wrapper Layer Name Role Phone Parth Mcdonald MD Primary Care Provider [phone] Braydon Ford MD Unavailable Reyes Byrnes MD Unavailable [phone] Shayan Garcia APRN, CNP Unavailable [phone] Reason for Visit * Reason Comments Medication Refill Encounter Details Date Type Department Care Team (Late st Contact Info) Description 07/22/2021 Refill [facility] - [place] [address]2 [place] [address] Parth Mcdonald MD #[address] [address] Medication Refill Social History Tobacco Use Types [...] COVID-19? No / Unsure 07/25/2021 12:05 PM CHILD PSYCHOLOGIST documented as of this encounter Miscellaneous Notes * Telephone Encounter - Debi Martin RN - 07/25/2021 1:59 PM CST Name from pharmacy: ROSUVASTATIN CALCIUM 20 MG TAB Will file in chart as: rosuvastatin (CRESTOR) 20 MG Tablet The original prescription was reordered on 07/25/2021 by Gosia Birmingham PAC. D PSYCHOLOGIST * Telephone Encounter - Debi Martin RN - 07/22/2021 3:44 PM CST Last Rx from Dr Muñoz per [place] PDMP/MEDD - will he refill? D PSYCHOLOGIST documented in this encounter Plan of Treatment Upcoming Encounters Date Type Department Care Team (Late st Contact Info) Description 12/31/2024 10:15 AM CDT [facility] Visit [facility] - [place] #2 [place] [address] Parth Mcdonald MD #[address] [address] 01/20/2025 1:00 PM CDT Office Visit [facility] #2 [place] [address] Shayan Garcia APRN, EXAM PROCTOR #2 [place] [address] 03/10/2025 10:00 AM CDT Office Visit [facility] - Pulmonology & Sleep Medicine [facility] #2 [place] [address] Braydon Ford MD #2 [place] [address] documented as of this encounter Visit Diagnoses Not on filedocumented in this encounter Additional Health Concerns Infection Onset Date Last Indicated Resolved Time COVID - 19 09/13/2021 09/13/2021 10/03/2021 12:1 6 AM CHILD PSYCHOLOGIST COVID - 19 12/31/2021 12/31/2021 01/20/2022 12:1 6 AM CDT Assessment Noted Time PHQ-9 Depression Total Score: 0 07/07/20 21 11:00 AM CDT documented as of this encounter Care Teams Wrapper Layer Relationship Specialty Start Date End Date Parth Mcdonald MD #[address] [address] PCP - General Family Medicine 07/08/15 Braydon Ford MD #2 [place] [address] Consulting Physician Pulmonary Disease 07/23/17 Reyes Byrnes MD [address] [facility] [address] [facility] 10 [place], [place] [address] Orthopaedic Surgery 07/23/17 Shayan Garcia APRN, EXAM PROCTOR #2 [place] [address] Nurse Practitioner Advanced Practice Nurse 03/03/24 documented as of this encounter
--- OUTSIDE RECORDS SUMMARY | 2024-10-02 12:21 | XMS_ITS | Encounter Summary ---
Author Organization [facility] Address [address] [place] [address] Phone Care Team Providers Care Epic Application Coordinator Name Role Phone Parth Mcdonald MD Primary Care Provider [phone] Braydon Ford MD Unavailable Reyes Byrnes MD Unavailable [phone] Shayan Garcia APRN, CNP Unavailable [phone] Reason for Visit * Reason Comments Medication Refill Encounter Details Date Type Department Care Team (Late st Contact Info) Description [facility] [address] [place] [address] Parth Mcdonald MD #[address] [address] Medication Refill Social History Tobacco Use Types Packs/Day Years Used Date Smoking Tobacco: Former Cigarettes 1 30 1 10/31/1985 - 08/30/2016 Smokeless Tobacco: Never Alcohol Use Standard Drinks/Week Comments Yes 0 (1 standard drink = 0.6 oz pur e alcohol) rarely PHQ-2 Answer Date Recorded PHQ-2 Score 0 05/02/2019 Comments No Sex and Gender Information Value [...] encounter Miscellaneous Notes * Telephone Encounter - Carmen rFye RN - 11/11/2019 9:22 AM CDT Requested Prescriptions Pending Prescriptions Disp Refills esomeprazole (NEXIUM) 40 MG CAPSULE DELAYED RELEASE [Pharmacy Med Name: ESOMEPRAZOLE MAG DR 40 MG CAP] 90 Cap 3 Sig: TAKE ONE CAPSULE BY MOUTH EVERY MORNING BEFORE BREAKFAST Gastroenterology: Antiulcer - Proton Pump Inhibitors Passed - 11/11/2019 7:04 AM Passed - Valid encounter within last 12 months Past Office Visits Recent Outpatient Visits 1 month ago Urinary tract infection without hematuria, site unspecified [facility] Parth Mcdonald MD 8 months ago Environmental allergies [facility] Parth Mcdonald MD 1 year ago Insomnia, unspecified type [facility] Parth Fan MD 1 year ago Gastroesophageal reflux disease, esophagitis presence not specified [facility] Parth Mcdonald MD 1 year ago Postprandial bloating [facility] Parth Mcdonald MD Upcoming Appointments Future Appointments In 1 month Parth Mcdonald MD [facility], [facility] CHANTIX 1 MG Tablet [Pharmacy Med Name: CHANTIX 1 MG TABLET] 60 Tab 1 Sig: TAKE ONE TABLET BY MOUTH TWICE A DAY Not Delegated - Psychiatry: Drug Dependence Therapy Failed - 11/11/2019 7:04 AM Failed - This refill cannot be delegated Passed - Valid encounter within last 12 months Past Office Visits Recent Outpatient Visits 1 month ago Urinary tract infection without hematuria, site unspecified [facility] Parth Mcdonald MD 8 months ago Environmental allergies [facility] Parth Fan MD 1 year ago Insomnia, unspecified type [facility] Parth Mcdoanld MD 1 year ago Gastroesophageal reflux disease, esophagitis presence not specified [facility] Parth Fan MD 1 year ago Postprandial bloating [facility] Parth Mcdonald MD Upcoming Appointments Future Appointments In 1 month Parth Mcdonald MD [facility], [facility] Passed - Last BP in normal range BP Readings from Last 1 Encounters: 10/15/19 134/86 documented in this encounter Plan of Treatment Upcoming Encounters Date Type Department Care Team (Late st Contact Info) Description 12/31/2024 10:15 AM CDT [facility] #2 [place] [address] Parth Mcdonald MD #[address] [address] 01/20/2025 1:00 PM CDT Office Visit [facility] #2 [place] [address] Shayan Garcia APRN, [employer] #2 [place] [address] 03/10/2025 10:00 AM CDT [facility] #2 [place] [address] Braydon Ford MD #2 [place] [address] documented as of this encounter Visit Diagnoses Not on filedocumented in this encounter Additional Health Concerns Infection Onset Date Last Indicated Resolved Time COVID - 19 02/02/2020 02/03/2020 02/03/2020 8:02 AM CDT COVID - 19 09/01/2020 09/01/2020 09/02/2020 4:52 AM HIGH SCHOOL TUTOR COVID - 19 Confirmed 09/01/2020 09/01/2020 021 12:18 AM HIGH SCHOOL TUTOR COVID - 19 09/13/2021 09/13/2021 10/03/2021 12:1 6 AM HIGH SCHOOL TUTOR COVID - 19 12/31/2021 12/31/2021 01/20/2022 12:1 6 AM CDT Assessment Noted Time PHQ-9 Depression Total Score: 0 09/24/19 19 6:19 AM HIGH SCHOOL TUTOR documented as of this encounter Care Teams Epic Application Coordinator Relationship Specialty Start Date End Date Parth Mcdonald MD #[address] [address] PCP - General Family Medicine 07/08/15 Braydon Ford MD #2 [place] [address] Consulting Physician Pulmonary Disease 07/23/17 Reyes Byrnes MD [address] [address] Orthopaedic Surgery 07/23/17 Shayan Garcia APRN, [employer] #2 [place] [address] Nurse Practitioner Advanced Practice Nurse 03/03/24 documented as of this encounter
--- OUTSIDE RECORDS SUMMARY | 2024-10-02 12:21 | XMS_ITS | Encounter Summary ---
Author Organization [facility] Address [address] [place] [address] Phone Care Team Providers Care Search Optimization Analyst Name Role Phone Parth Mcdonald MD Primary Care Provider [phone] Braydon Ford MD Unavailable Reyes Byrnes MD Unavailable [phone] Shayan Garcia APRN, CNP Unavailable [phone] Reason for Visit * Reason Comments Medication Refill Encounter Details Date Type Department Care Team (Late st Contact Info) Description 02/04/2024 Refill [facility] - Family Medicine - [place] #2 [place] [address] Parth Mcdonald MD #[address] [address] Medication Refill Social History Tobacco Use Types [...] often do you attend chur ch or bahai services? 1 to 4 times per year 01/16/2024 Do you belong to any clubs o r organizations such as lutheran groups, unions, fraternal or athletic groups, or [...] Score - Questions 1-9 0 0 03/2023 [facility] - Occupational Stress [...] place to sleep or slept in a correction (including now)? No 01/16/2024 Sexually Active Control [...] Telephone Encounter - Debi Martin RN - 02/04/2024 11:51 AM CDT Medication failed the protocol, provider to review and approve the medication order if appropriate. Requested Prescriptions Pending Prescriptions Disp Refills citalopram (CeleXA) 40 MG Tablet [Pharmacy Med Name: CITALOPRAM HBR 40 MG TABLET] 90 Tablet 3 Sig: TAKE 1 TABLET BY MOUTH EVERY DAY Citalopram (Celexa) (6 Month Refill Only) Protocol Failed - 02/04/2024 12:50 AM Failed - Has an encounter in the past 6 months with a depression, anxiety, adjustment disorder, OCD, or PTSD visit diagnosis Passed - Citalopram dose is less than or equal to 40mg / day Passed - Visit with relevant provider in past 6 months or upcoming 90 days Recent Visits Date Type Provider Dept 01/30/24 Telemedicine Parth Mcdonald MD [facility] 01/16/24 Office Visit Parth Mcdonald MD [facility] 12/07/23 Office Visit Sanford Fagan APRN, SUPERVISOR COOK ROOM [facility] 10/11/23 Telemedicine Parth Mcdonald MD [facility] Showing recent visits within past 182 days and meeting all other requirements Future Appointments No visits were found meeting these conditions. Showing future appointments within next 90 days and meeting all other requirements Passed - Patient has established therapy with Citalopram for at least 6 months documented in this encounter Plan of Treatment Upcoming Encounters Date Type Department Care Team (Late st Contact Info) Description 12/31/2024 10:15 AM CDT Office Visit [facility] Medical [facility] - Family Medicine - [place] #2 [place] [address] Parth Mcdonald MD #[address] [address] 01/20/2025 1:00 PM CDT Office Visit [facility] #2 [facility] [place] [address] Shayan Garcia APRN, SUPERVISOR COOK ROOM #2 [facility] [place] [address] 03/10/2025 10:00 AM CDT Office Visit [facility] - Pulmonology & [facility] #2 [facility] [place] [address] Braydon Ford MD #2 [place] [address] documented as of this encounter Visit Diagnoses Not on filedocumented in this encounter Additional Health Concerns Assessment Noted Time PHQ-9 Depression Total Score: 0 02/08/20 23 2:49 PM CDT documented as of this encounter Care Teams Search Optimization Analyst Relationship Specialty Start Date End Date Parth Mcdonald MD #[address] [address] PCP - General Family Medicine 07/08/15 Braydon Ford MD #2 [place] [address] Consulting Physician Pulmonary Disease 07/23/17 Reyes Byrnes MD [address] [facility] 10 [place] [address] Orthopaedic Surgery 07/23/17 Shayan Garcia APRN, MALACHI #2 [place] [address] Nurse Practitioner Advanced Practice Nurse 03/03/24 documented as of this encounter
--- OUTSIDE RECORDS SUMMARY | 2024-10-02 12:21 | XMS_ITS | Encounter Summary ---
Author Organization [facility] Address [address] [place] [address] Phone Care Team Providers Care Rodbuster Name Role Phone Parth Mcdonald MD Primary Care Provider [phone] Braydon Ford MD Unavailable Reyes Byrnes MD Unavailable [phone] Shayan Garcia APRN, CNP Unavailable [phone] Reason for Visit * Reason Comments Medication Refill Encounter Details Date Type Department Care Team (Late st Contact Info) Description 07/26/2021 Refill [facility] - [facility]monology & Sleep Medicine [facility] #2 [place] [address] Braydon Ford MD #2 [place] [address] Medication Refill Social History Tobacco [...] COVID-19? No / Unsure 07/25/2021 12:05 PM COLLABORATIVE TEACHER documented as of this encounter Miscellaneous Notes * Telephone Encounter - Meg Aguilar RN - 07/26/2021 1:05 PM COLLABORATIVE TEACHER Medication failed the protocol, provider to review and approve the medication order if appropriate. Requested Prescriptions Pending Prescriptions Disp Refills varenicline (CHANTIX) 1 MG Tablet [Pharmacy Med Name: VARENICLINE 1 MG TABLET] 56 Tablet 1 Sig: TAKE 1 TABLET BY MOUTH 2 TIMES DAILY. Not Delegated - Smoking Deterrents Protocol Failed - 07/26/2021 10:30 AM Failed - This refill cannot be delegated Passed - Visit with relevant provider in past 6 months or upcoming 90 days Recent Visits Date Type Provider Dept 07/25/21 Office Visit Gosia Birmingham PAC [facility] 07/07/21 Office Visit Parth Mcdonald MD [facility] 04/14/21 Office Visit Braydon Ford MD [facility] 02/28/21 Office Visit Parth Mcdonald MD [facility] 02/03/21 Office Visit Parth Mcdonald MD [facility] Showing recent visits within past 182 days and meeting all other requirements Future Appointments Date Type Provider Dept 02/14/22 Appointment Braydon Ford MD [facility] Showing future appointments within next 90 days and meeting all other requirements ABORATIVE TEACHER documented in this encounter Plan of Treatment Upcoming Encounters Date Type Department Care Team (Late st Contact Info) Description 12/31/2024 10:15 AM CDT Office Visit [facility] Medical [facility] - Family Medicine [facility] #2 [place] [place] [address] Parth Mcdonald MD #[address] [place] [address] 01/20/2025 1:00 PM CDT Office Visit [facility] #2 [facility] [place] [address] Shayan Garcia APRN, WATER VALVE REPAIRER #2 [place] [address] 03/10/2025 10:00 AM CDT Office Visit [facility] - Pulmonology & Sleep Medicine [facility] #2 [place] [place] [address] Braydon Ford MD #2 [place] [address] documented as of this encounter Visit Diagnoses Not on filedocumented in this encounter Additional Health Concerns Infection Onset Date Last Indicated Resolved Time COVID - 19 09/13/2021 09/13/2021 10/03/2021 12:1 6 AM COLLABORATIVE TEACHER COVID - 19 12/31/2021 12/31/2021 01/20/2022 12:1 6 AM CDT Assessment Noted Time PHQ-9 Depression Total Score: 0 07/07/20 21 11:00 AM CDT documented as of this encounter Care Teams Rodbuster Relationship Specialty Start Date End Date Parth Mcdonald MD #[address] [address] PCP - General Family Medicine 07/08/15 Braydon Ford MD #2 [place] [address] Consulting Physician Pulmonary Disease 07/23/17 Reyes Byrnes MD [address] [facility] 10 [place] [address] Orthopaedic Surgery 07/23/17 Shayan Garcia APRN, WATER VALVE REPAIRER #2 [facility] [place] [address] Nurse Practitioner Advanced Practice Nurse 03/03/24 documented as of this encounter
--- OUTSIDE RECORDS SUMMARY | 2024-10-02 12:21 | XMS_ITS | Encounter Summary ---
Author Organization [facility] Address [address] [place] [address] Phone Care Team Providers Care Attending Pathologist Name Role Phone Parth Mcdonald MD Primary Care Provider [phone] Braydon Ford MD Unavailable Reyes Byrnes MD Unavailable [phone] Shayan Garcia APRN, MALACHI Unavailable [phone] Encounter Details Date Type Department Care Team (Late st Contact Info) Description 11/03/2019 [facility] 1 [place] [address] Provider, [place] On File [place] Social History Tobacco Use Types Packs/Day Years [...] Description 12/31/2024 10:15 AM CDT Office Visit [facility] Medical [facility] - Family Medicine [facility] #2 [place] [address] Parth Mcdonald MD #[address] [address] 01/20/2025 1:00 PM CDT Office Visit [facility] #2 [place] [address] Shayan Garcia, ATOMIC FUEL ASSEMBLER, CLEAT LAYER #2 [place] [address] 03/10/2025 10:00 AM CDT Office Visit [facility] - Pulmonology & Sleep Medicine [facility] #2 [place] [address] Braydon Ford MD #2 [place] [address] documented as of this encounter Visit Diagnoses Not on filedocumented in this encounter Additional Health Concerns Infection Onset Date Last Indicated Resolved Time COVID - 19 02/02/2020 02/03/2020 02/03/2020 8:02 AM CDT COVID - 19 09/01/2020 09/01/2020 09/02/2020 4:52 AM TEST BORE HELPER COVID - 19 Confirmed 09/01/2020 09/01/2020 021 12:18 AM TEST BORE HELPER COVID - 19 09/13/2021 09/13/2021 10/03/2021 12:1 6 AM TEST BORE HELPER COVID - 19 12/31/2021 12/31/2021 01/20/2022 12:1 6 AM CDT Assessment Noted Time PHQ-9 Depression Total Score: 0 09/24/19 19 6:19 AM TEST BORE HELPER documented as of this encounter Care Teams Attending Pathologist Relationship Specialty Start Date End Date Parth Mcdonald MD #[address] [address] PCP - General Family Medicine 07/08/15 Braydon Ford MD #2 [place] [address] Consulting Physician Pulmonary Disease 07/23/17 Reyes Byrnes MD [address] [facility] [address] [place] [address] Orthopaedic Surgery 07/23/17 Shayan Garcia APRN, CLEAT LAYER #2 [place] [address] Nurse Practitioner Advanced Practice Nurse 03/03/24 documented as of this encounter
--- OUTSIDE RECORDS SUMMARY | 2024-10-02 12:22 | XMS_ITS | Encounter Summary ---
Author Organization [facility] Address [address] [place] [address] Phone Care Team Providers Care Tube Depatcher Name Role Phone Parth Mcdonald MD Primary Care Provider [phone] Braydon Ford MD Unavailable Reyes Byrnes MD Unavailable [phone] Shayan Garcia APRN, CNP Unavailable [phone] Reason for Visit * Reason Comments Medication Refill Encounter Details Date Type Department Care Team (Late st Contact Info) Description 11/18/2022 Refill [facility] - [facility] Medicine - [place] #2 [place] [address] Parth Mcdonald MD #[address] [address] Medication Refill Social History Tobacco Use Types [...] encounter Miscellaneous Notes * Telephone Encounter - Briseida Vanegas RN - 11/20/2022 9:47 AM CDT Medication failed the protocol, provider to review and approve the medication order if appropriate. Requested Prescriptions Pending Prescriptions Disp Refills citalopram (CeleXA) 40 MG Tablet [Pharmacy Med Name: CITALOPRAM HBR 40 MG TABLET] 90 Tablet 3 Sig: TAKE 1 TABLET BY MOUTH EVERY DAY Citalopram (Celexa) (6 Month Refill Only) Protocol Failed - 11/18/2022 12:25 PM Failed - Has an encounter in the past 6 months with a depression, anxiety, adjustment disorder, OCD, or PTSD visit diagnosis Passed - Citalopram dose is less than or equal to 40mg / day Passed - Visit with relevant provider in past 6 months or upcoming 90 days Recent Visits No visits were found meeting these conditions. Showing recent visits within past 182 days and meeting all other requirements Future Appointments Date Type Provider Dept 12/28/22 Appointment Parth Mcdonald MD [facility] Showing future appointments within next 90 days and meeting all other requirements Passed - Patient has established therapy with Citalopram for at least 6 months documented in this encounter Plan of Treatment Upcoming Encounters Date Type Department Care Team (Late st Contact Info) Description 12/31/2024 10:15 AM CDT Office Visit [facility] Group - Family Medicine - [place] #2 [place] [address] Parth Mcdonald MD #2 [facility] [place] [address] 01/20/2025 1:00 PM CDT Office Visit [facility] #2 [place] [address] Shayan Garcia, DIE SET UP WORKER, TRUCK LOADER #2 [place] [address] 03/10/2025 10:00 AM CDT Office Visit [facility] - Pulmonology & Sleep Medicine [facility] #2 [place] [address] Braydon Ford MD #2 [place] [address] documented as of this encounter Visit Diagnoses Not on filedocumented in this encounter Additional Health Concerns Assessment Noted Time PHQ-9 Depression Total Score: 0 07/07/20 21 11:00 AM CDT documented as of this encounter Care Teams Tube Depatcher Relationship Specialty Start Date End Date Parth Mcdonald MD #[address] [address] PCP - General Family Medicine 07/08/15 Braydon Ford MD #2 [place] [address] Consulting Physician Pulmonary Disease 07/23/17 Reyes Byrnes MD [address] [facility] 10 [place] [address] Orthopaedic Surgery 07/23/17 Shayan Garcia APRN, TRUCK LOADER #2 [place] [address] Nurse Practitioner Advanced Practice Nurse 03/03/24 documented as of this encounter
--- OUTSIDE RECORDS SUMMARY | 2024-10-02 12:22 | XMS_ITS | Encounter Summary ---
Author Organization [facility] Address [address] [place] [address] Phone Care Team Providers Care Folding Machine Operator Name Role Phone Parth Mcdonald MD Primary Care Provider [phone] Braydon Ford MD Unavailable Reyes Byrnes MD Unavailable [phone] Shayan Garcia APRN, CNP Unavailable [phone] Reason for Visit * Reason Comments Medication Refill Encounter Details Date Type Department Care Team (Late st Contact Info) Description 11/27/2021 Refill [facility] - Family Medicine - [place] #2 [place] [address] Parth Mcdonald MD #[address] [address] Medication Refill Social History Tobacco Use Types [...] have Coronavirus / COVID-19? No / Unsure 11/01/2021 3:17 PM SENIOR PARALEGAL documented as of this encounter Miscellaneous Notes * Telephone Encounter - Debi Martin RN - 11/28/2021 1:59 PM CDT Medication failed the protocol, provider to review and approve the medication order if appropriate. Requested Prescriptions Pending Prescriptions Disp Refills citalopram (CeleXA) 40 MG Tablet [Pharmacy Med Name: CITALOPRAM HBR 40 MG TABLET] 90 Tablet 3 Sig: TAKE ONE TABLET BY MOUTH ONCE DAILY Citalopram (Celexa) (6 Month Refill Only) Protocol Failed - 11/27/2021 1:27 PM Failed - Has an encounter in the past 6 months with a depression, anxiety, adjustment disorder, OCD, or PTSD visit diagnosis Passed - Citalopram dose is less than or equal to 40mg / day Passed - Visit with relevant provider in past 6 months or upcoming 90 days Recent Visits Date Type Provider Dept 11/01/21 Office Visit Sanford Fagan APRN, [facility]ACH[facility] 09/12/21 Telemedicine Parth Mcdonald MD [facility] 07/25/21 Office Visit Gosia Birmingham, LOKESH [facility] 07/07/21 Office Visit [facility]cd[facility] MD [facility] Showing recent visits within past 182 days [...] Description 12/31/2024 10:15 AM CDT Office Visit [facility] Medical Group - Family Medicine [facility] #2 [place] [address] Parth Mcdonald MD #[address] [address] 01/20/2025 1:00 PM CDT Office Visit [facility]Y #2 [place] [address] Shayan Garcia APRN, AS400 ANALYST #2 [place] [address] 03/10/2025 10:00 AM CDT Office Visit [facility] - Pulmonology & Sleep Medicine [facility] #2 [place] [address] Braydon Ford MD #2 [place] [address] documented as of this encounter Visit Diagnoses Not on filedocumented in this encounter Additional Health Concerns Infection Onset Date Last Indicated Resolved Time COVID - 19 12/31/2021 12/31/2021 01/20/2022 12:1 6 AM CDT Assessment Noted Time PHQ-9 Depression Total Score: 0 07/07/20 21 11:00 AM CDT documented as of this encounter Care Teams Folding Machine Operator Relationship Specialty Start Date End Date Parth Mcdonald MD #[address] [address] PCP - General Family Medicine 07/08/15 Braydon Ford MD #2 [place] [address] Consulting Physician Pulmonary Disease 07/23/17 Reyes Byrnes MD [address] [facility] 10 [place] [address] Orthopaedic Surgery 07/23/17 Shayan Garcia APRN, AS400 ANALYST #2 [place] [address] Nurse Practitioner Advanced Practice Nurse 03/03/24 documented as of this encounter
--- OUTSIDE RECORDS SUMMARY | 2024-10-02 12:22 | XMS_ITS | Encounter Summary ---
Author Organization [facility] Address [address] [place] [address] Phone Care Team Providers Care Operations Support Specialist Name Role Phone Parth Mcdonald MD Primary Care Provider [phone] Braydon Ford MD Unavailable Reyes Byrnes MD Unavailable [phone] Shayan Garcia APRN, STATIONARY PLANT OPERATORS Unavailable [phone] Reason for Visit * Reason Onset Date Comments Prior Authorization 03/02/2023 Peer to peer requested Encounter Details Date Type Department Care Team (Late st Contact Info) Description 03/02/2023 Telephone [facility] Outpatient [address] [place] [address] Parth Mcdonald MD #[address] [address] Prior Authorization (Peer to peer requested) Social History Tobacco Use Types Packs/Day Years [...] Exposure Response Date Recorded In the last 10 days, have yo u been in contact with someone who was confirmed or suspected to have Coronavirus/COVID-19? No / Unsure 03/05/2023 7:08 AM CDT documented as of this encounter Miscellaneous Notes * Telephone Encounter - Addie Peña RN - 03/16/2023 1:15 PM CDT P2P * Telephone Encounter - Parth Mcdonald MD - 03/11/2023 8:17 AM CDT Nope, will do this when I return to the office this week. Please talk to me about this when I get back. Thanks! * Telephone Encounter - Parth Mcdonald MD - 03/07/2023 1:06 AM CDT Please schedule a peer to peer when I return to the office. Thanks! * Telephone Encounter - Chelsey Starks - 03/02/2023 3:16 PM CDT Auth Denied-P2P offered Ordering Provider: Internal Appointment Info: Clinic: [facility] HealthCare [facility] CT Clinic Provider: [email or web address] Appt Date/Time: Sunday 11:00 AM Payor + Plan: MEDICARE C AETNA - AETNA MEDICARE CPT/Test: 22830 Ct Chest W/O Contrast Authorization denied through: [employer] Estimated Amount [Full Charges]: $2711.01 Reason for denial: Based on Medicare National Coverage Determinations (NCD): 220.1 Computed Tomography and [employer] Chest Imaging Guidelines Section(s): COPD (CH 10.1), we cannot approve this request.Your healthcare provider told us that you have a chronic lung disease that causes decreased airflowfrom the lungs. The request cannot be approved because: We did not receive results of a recent chest x-ray that support further imaging. It must be needed for one of the following reasons. -Surgical planning to remove diseased lung tissue. -The problem cannot be confirmed by results of laboratory studies, pulmonary function tests and chest x-ray. It must be requested for one of the following suspected conditions.. -Bronchiectasis -Emphysema -Digwu-9-Levjozifazb Deficiency -Other indications as listed in the guideline. Peer to Peer review offered by Payer: Yes Peer to Peer review expires: 03/10 Case #: [id number] Phone #: [phone] Physician: Parth Mcdonald MD documented in this encounter Plan of Treatment Upcoming Encounters Date Type Department Care Team (Late st Contact Info) Description 12/31/2024 10:15 AM CDT Office Visit [facility] Medical Group - Family Medicine - [place] [address] [place] [address] Parth Mcdonald MD #[address] [address] 01/20/2025 1:00 PM CDT Office Visit [facility] UROLOGY [address] [place] [address] Shayan Garcia APRN, STATIONARY PLANT OPERATORS #2 [place] [address] 03/10/2025 10:00 AM CDT [facility] #2 [place] [address] Braydon Ford MD #2 [place] [address] documented as of this encounter Visit Diagnoses Not on filedocumented in this encounter Additional Health Concerns Assessment Noted Time PHQ-9 Depression Total Score: 0 02/08/20 23 2:49 PM CDT documented as of this encounter Care Teams Operations Support Specialist Relationship Specialty Start Date End Date Parth Mcdonald MD #[address] [address] PCP - General Family Medicine 07/08/15 Braydon Ford MD #2 [place] [address] Consulting Physician Pulmonary Disease 07/23/17 Reyes Byrnes MD [address] [facility] 10 [place] [address] Orthopaedic Surgery 07/23/17 Shayan Garcia APRN, STATIONARY PLANT OPERATORS #2 [place] [address] Nurse Practitioner Advanced Practice Nurse 03/03/24 documented as of this encounter
--- OUTSIDE RECORDS SUMMARY | 2024-10-02 12:22 | XMS_ITS | Encounter Summary ---
Author Organization [facility] Address [address] [place] [address] Phone Care Team Providers Care Ip Technology Transactions Attorney Name Role Phone Parth Mcdonald MD Primary Care Provider [phone] Braydon Ford MD Unavailable Reyes Byrnes MD Unavailable [phone] Shayan Garcia APRN, CNP Unavailable [phone] Reason for Visit * Reason Comments Medication Refill Encounter Details Date Type Department Care Team (Late st Contact Info) Description 11/18/2020 Refill [facility] - [place] #2 [place] [address] Parth Mcdonald MD #[address] [address] Medication Refill Social History Tobacco Use Types [...] have Coronavirus / COVID-19? No / Unsure 11/15/2020 6:31 AM CDT documented as of this encounter Miscellaneous Notes * Telephone Encounter - Addie Peña RN - 11/19/2020 11:11 AM CDT Per nursing clinical judgement, provider to review and approve the medication(s) order(s) if appropriate. Last OV 10/26/20, F/U 11/29/[address] Craven dispensed 180 pills Addie RN Requested Prescriptions Pending Prescriptions Disp Refills metFORMIN (GLUCOPHAGE) 500 MG Tablet [Pharmacy Med Name: METFORMIN HCL 500 MG TABLET] 180 Tablet 3 Sig: TAKE ONE TABLET BY MOUTH TWICE A DAY WITH MEALS Endocrinology: Diabetes - Biguanides Passed - 11/18/2020 2:10 PM Passed - Valid encounter within last 12 months Past Office Visits Recent Outpatient Visits 3 weeks ago Flank pain [facility] - Family [facility] - Parth Lindo MD 2 months ago Acute low back pain with sciatica, sciatica laterality unspecified, unspecified back pain [facility]ality [facility], [place] 2 months ago Centrilobular emphysema (HCC) [facility] APN, MALACHI 6 months ago Insomnia, unspecified type [facility] - Parth Lindo MD 9 months ago History of coronary artery stent placement [facility] [place] Upcoming Appointments Future Appointments In 1 week Parth Mcdonald MD [facility] In 4 months Braydon Ford MD [facility]UL[facility], [facility] FEED MILL OPERATOR - Recent and Past Visits Recent Visits Date Type Provider Dept 10/26/20 Office Visit Parth Mcdonald MD [facility] 09/10/20 Telemedicine Sanford Fagan APN, FOOTWEAR STITCHER [facility] [place] 08/24/20 Office Visit Sanford Fagan APN, FOOTWEAR STITCHER [facility] [place] 05/17/20 Office Visit Parth Mcdonald MD [facility] 02/12/20 Office Visit Parth Mcdonald MD [facility] 12/25/19 Telemedicine Parth Mcdonald MD [facility] 09/16/19 Office Visit Parth Mcdonald MD [facility] Showing recent visits within past 460 days with a meds authorizing provider and meeting all other requirements Future Appointments Date Type Provider Dept 11/29/20 Appointment Parth Mcdonald MD [facility] Showing future appointments within next 90 days with a meds authorizing provider and meeting all other requirements Passed - Last BP in normal range BP Readings from Last 1 Encounters: 10/26/20 128/80 documented in this encounter Plan of Treatment Upcoming Encounters Date Type Department Care Team (Late st Contact Info) Description 12/31/2024 10:15 AM CDT [facility] [place] [address] Parth Mcdonald MD #[address] [address] 01/20/2025 1:00 PM CDT Office Visit [facility] #2 [place] [address] Shayan Garcia APRN, FOOTWEAR STITCHER #2 [place] [address] 03/10/2025 10:00 AM CDT Office Visit [facility] - Pulmonology & Sleep Medicine [facility] #2 [place] [address] Braydon Ford MD #2 [place] [address] documented as of this encounter Visit Diagnoses Not on filedocumented in this encounter Additional Health Concerns Infection Onset Date Last Indicated Resolved Time COVID - 19 09/13/2021 09/13/2021 10/03/2021 12:1 6 AM MANAGER INTELLIGENCE COVID - 19 12/31/2021 12/31/2021 01/20/2022 12:1 6 AM CDT Assessment Noted Time PHQ-9 Depression Total Score: 0 05/17/20 8:00 AM CDT documented as of this encounter Care Teams Ip Technology Transactions Attorney Relationship Specialty Start Date End Date Parth Mcdonald MD #[address] [address] PCP - General Family Medicine 07/08/15 Braydon Ford MD #2 [place] [address] Consulting Physician Pulmonary Disease 07/23/17 Reyes Byrnes MD [address] [facility] 10 [place] [address] Orthopaedic Surgery 07/23/17 Shayan Garcia APRN, FOOTWEAR STITCHER #2 [place] [address] Nurse Practitioner Advanced Practice Nurse 03/03/24 documented as of this encounter
--- OUTSIDE RECORDS SUMMARY | 2024-10-02 12:22 | XMS_ITS | Encounter Summary ---
Author Organization [facility] Address [address] [place] [address] Phone Care Team Providers Care Capacity Planning Manager Name Role Phone Parth Mcdonald MD Primary Care Provider [phone] Braydon Ford MD Unavailable Reyes Byrnes MD Unavailable [phone] Shayan Garcia APRN, CNP Unavailable [phone] Reason for Visit * Reason Comments Medication Refill Encounter Details Date Type Department Care Team (Late st Contact Info) Description 04/06/2022 Refill [facility] - [place] #2 [place] [address] Parth Mcdonald MD #[address] [address] Medication Refill Social History Tobacco Use Types [...] suspected to have Coronavirus/COVID-19? No / Unsure 03/14/2022 8:53 AM CDT documented as of this encounter Miscellaneous Notes * Telephone Encounter - Debi Martin RN - 04/07/2022 11:09 AM CDT Medication failed the protocol, provider to review and approve the medication order if appropriate. Requested Prescriptions Pending Prescriptions Disp Refills rosuvastatin (CRESTOR) 20 MG Tablet [Pharmacy Med Name: ROSUVASTATIN CALCIUM 20 MG TAB] 90 Tablet 3 Sig: TAKE 1 TABLET BY MOUTH EVERY DAY AT NIGHT Hmg CoA Reductase Inhibitors Protocol Failed - 04/06/2022 5:59 PM Failed - Lipid panel in past 12 months LDL Date Value Ref Range Status 12/06/2020 62 5 - 130 mg/dL Final HDL CHOLESTEROL Date Value Ref Range Status 12/06/2020 62.8 >40 mg/dL Final CHOLESTEROL Date Value Ref Range Status 12/06/2020 150 <=200 mg/dL Final TRIGLYCERIDES Date Value Ref Range Status 12/06/2020 126 <150 mg/dL Final VLDL Date Value Ref Range Status 12/06/2020 25 5 - 55 mg/dL Final CHOL/HDL RATIO Date Value Ref Range Status 12/06/2020 2.4 0.0 - 4.4 Final NON-HDL CHOLESTEROL Date Value Ref Range Status 12/06/2020 87.2 <130 mg/dL Final Passed - Visit with relevant provider in past 12 months or upcoming 90 days Recent Visits Date Type Provider Dept 02/28/22 Telemedicine Parth Mcdonald MD [facility] 11/01/21 Office Visit Sanford Fagan APRN, GENERAL UTILITY WORKER [facility] 09/12/21 Telemedicine [facility] MD [facility] 07/25/21 Office Visit Valencia Kristy, LOKESH [facility] 07/07/21 Office Visit Parth Mcdonald MD [facility] Showing recent visits within past 365 days and meeting all other requirements Future Appointments No visits were found meeting these conditions. Showing future appointments within next 90 days and meeting all other requirements documented in this encounter Plan of Treatment Upcoming Encounters Date Type Department Care Team (Late st Contact Info) Description 12/31/2024 10:15 AM CDT Office [facility] Medical [facility] - Family Medicine - [place] #2 [place] [address] Parth Mcdonald MD #[address] [address] 01/20/2025 1:00 PM CDT Office Visit [facility] #2 [place] [address] Shayan Garcia APRN, GENERAL UTILITY WORKER #2 [place] [address] 03/10/2025 10:00 AM CDT Office Visit [facility] - Pulmonology & Sleep Medicine [facility] #2 [place] [address] Braydon Ford MD #2 [place] [address] documented as of this encounter Visit Diagnoses Not on filedocumented in this encounter Additional Health Concerns Assessment Noted Time PHQ-9 Depression Total Score: 0 07/07/20 21 11:00 AM CDT documented as of this encounter Care Teams Capacity Planning Manager Relationship Specialty Start Date End Date Parth Mcdonald MD #[address] [address] PCP - General Family Medicine 07/08/15 Braydon Ford MD #2 [place] [address] Consulting Physician Pulmonary Disease 07/23/17 Reyes Byrnes MD [address] [facility] 10 [place] [address] Orthopaedic Surgery 07/23/17 Shayan Garcia APRN, GENERAL UTILITY WORKER [address]2 [place] [address] Nurse Practitioner Advanced Practice Nurse 03/03/24 documented as of this encounter
--- OUTSIDE RECORDS SUMMARY | 2024-10-02 12:22 | XMS_ITS | Encounter Summary ---
Author Organization [facility] Address [address] [place] [address] Phone Care Team Providers Care Foam Charger Name Role Phone Parth Mcdonald MD Primary Care Provider [phone] Braydon Ford MD Unavailable Reyes Byrnes MD Unavailable [phone] Shayan Garcia APRN, CNP Unavailable [phone] Reason for Visit * Reason Comments Medication Refill Encounter Details Date Type Department Care Team (Late st Contact Info) Description 11/01/2022 Refill [facility] - Pulmonology & Sleep Medicine [facility] #2 [place] [address] Braydon Ford MD #2 [place] [address] Medication Refill Social History Tobacco [...] encounter Miscellaneous Notes * Telephone Encounter - Bita Karimi RN - 11/02/2022 2:04 PM FLASK PUSHER Medication refilled and signed [facility] for pediatric and adult [facility]. K PUSHER documented in this encounter Plan of Treatment Upcoming Encounters Date Type Department Care Team (Late st Contact Info) Description 12/31/2024 10:15 AM CDT Office Visit [facility] Medical [facility] - Family Medicine [facility] #2 [place] [address] Parth Mcdonald MD #[address] [address] 01/20/2025 1:00 PM CDT Office Visit [facility] #2 [place] [address] Shayan Garcia APRN, FIRE SAFETY MANAGER #2 [place] [address] 03/10/2025 10:00 AM CDT Office Visit [facility] - Pulmonology & Sleep Medicine [facility] #2 [place] [address] Braydon Ford MD #2 [place] [address] documented as of this encounter Visit Diagnoses Not on filedocumented in this encounter Additional Health Concerns Assessment Noted Time PHQ-9 Depression Total Score: 0 07/07/20 21 11:00 AM CDT documented as of this encounter Care Teams Foam Charger Relationship Specialty Start Date End Date Parth Mcdonald MD #[address] [address] PCP - General Family Medicine 07/08/15 Braydon Ford MD #2 [place] [address] Consulting Physician Pulmonary Disease 07/23/17 Reyse Byrnes MD [address] [facility] 10 [place] [address] Orthopaedic Surgery 07/23/17 Shayan Garcia APRN, FIRE SAFETY MANAGER [address]2 [place] [address] Nurse Practitioner Advanced Practice Nurse 03/03/24 documented as of this encounter
--- OUTSIDE RECORDS SUMMARY | 2024-10-02 12:22 | XMS_ITS | Encounter Summary ---
Author Organization [facility] Address [address] [place] [address] Phone Care Team Providers Care Nuclear Medical Technologist Name Role Phone Parth Mcdonald MD Primary Care Provider [phone] Braydon Ford MD Unavailable Reyes Byrnes MD Unavailable [phone] Shayan Garcia APRN, CNP Unavailable [phone] Reason for Visit * Reason Comments Medication Refill Encounter Details Date Type Department Care Team (Late st Contact Info) Description 05/31/2022 Refill [facility] - Pulmonology & Sleep Medicine [facility] #2 [place] [address] Braydon Ford MD #2 [place] [address] Medication Refill Social History Tobacco [...] Telephone Encounter - Meg Aguilar RN - 06/01/2022 1:02 PM CDT Medication failed the protocol, provider to review and approve the medication order if appropriate. Requested Prescriptions Pending Prescriptions Disp Refills varenicline (CHANTIX) 1 MG Tablet [Pharmacy Med Name: VARENICLINE 1 MG TABLET] 56 Tablet 1 Sig: TAKE 1 TABLET BY MOUTH EVERY DAY Not Delegated - Smoking Deterrents Protocol Failed - 05/31/2022 10:40 AM Failed - This refill cannot be delegated Failed - Active on medication list Passed - Visit with relevant provider in past 6 months or upcoming 90 days Recent Visits Date Type Provider Dept 04/24/22 Office Visit Braydon Ford MD [facility] Pul & Sleep [facility] 02/28/22 Telemedicine Parth Mcdonald MD [facility] Showing recent visits within past 182 days and meeting all other requirements Future Appointments No visits were found meeting these conditions. Showing future appointments within next 90 days and meeting all other requirements documented in this encounter Plan of Treatment Upcoming Encounters Date Type Department Care Team (Late st Contact Info) Description 12/31/2024 10:15 AM CDT Office Visit [facility] - Family Medicine - [place] #2 [place] [phone] Parth Mcdonald MD #[address] [address] 01/20/2025 1:00 PM CDT Office Visit [facility] #2 [place] [address] Shayan Garcia, CAMELID FIBER SORTER, SENIOR SQL DEVELOPER #2 [place] [address] 03/10/2025 10:00 AM CDT Office Visit [facility] - Pulmonology & Sleep Medicine - [place] #2 [place] [address] Braydon Ford MD #2 [place] [address] documented as of this encounter Visit Diagnoses Not on filedocumented in this encounter Additional Health Concerns Assessment Noted Time PHQ-9 Depression Total Score: 0 07/07/20 21 11:00 AM CDT documented as of this encounter Care Teams Nuclear Medical Technologist Relationship Specialty Start Date End Date Parth Mcdonald MD #[address] [address] PCP - General Family Medicine 07/08/15 Braydon Ford MD #2 [place] [address] Consulting Physician Pulmonary Disease 07/23/17 Reyes Byrnes MD [address] [facility] [address] [facility] 10 [place] [address] Orthopaedic Surgery 07/23/17 Shayan Garcia APRN, SENIOR SQL DEVELOPER #2 [place] [address] Nurse Practitioner Advanced Practice Nurse 03/03/24 documented as of this encounter
--- OUTSIDE RECORDS SUMMARY | 2024-10-02 12:22 | XMS_ITS | Encounter Summary ---
Author Organization [facility] Address [address] [place] [address] Phone Care Team Providers Care Glass Sander Name Role Phone Parth Mcdonald MD Primary Care Provider [phone] Braydon Ford MD Unavailable Reyes Byrnes MD Unavailable [phone] Shayan Garcia APRN, CNP Unavailable [phone] Reason for Visit * Reason Comments Medication Refill Encounter Details Date Type Department Care Team (Late st Contact Info) Description 04/05/2023 Refill [facility] - [place] #2 [place] [address] Parth Mcdonald MD #[address] [address] Medication Refill Social History Tobacco Use Types [...] Telephone Encounter - Debi Martin RN - 04/05/2023 12:32 PM CDT Medication failed the protocol, provider to review and approve the medication order if appropriate. Requested Prescriptions Pending Prescriptions Disp Refills busPIRone (BUSPAR) 15 MG Tablet [Pharmacy Med Name: BUSPIRONE HCL 15 MG TABLET] 180 Tablet 1 Sig: TAKE 1 TABLET BY MOUTH TWICE A DAY Buspirone (6 Month Refill Only) Protocol Failed - 04/05/2023 1:04 AM Failed - Has an encounter in the past 6 months with a depression or anxiety visit diagnosis Passed - Visit with relevant provider in past 6 months or upcoming 90 days Recent Visits Date Type Provider Dept 02/07/23 Office Visit Parth Mcdonald MD [facility] [place] Showing recent visits within past 182 days and meeting all other requirements Future Appointments Date Type Provider Dept 05/11/23 Appointment Parth Mcdonald MD [facility] [place] Showing future appointments within next 90 days and meeting all other requirements Passed - Patient has established therapy with Buspirone for at least 6 months documented in this encounter Plan of Treatment Upcoming Encounters Date Type Department Care Team (Late st Contact Info) Description 12/31/2024 10:15 AM CDT Office Visit [facility] - Family Medicine - [place] #2 [place] [address] Parth Mcdonald MD #[address] [address] 01/20/2025 1:00 PM CDT Office Visit [facility] #2 [place] [address] Shayan Garcia APRN, EGG GRADER #2 [place] [address] 03/10/2025 10:00 AM CDT Office Visit [facility] - Pulmonology & Sleep Medicine - [place] #2 [place] [address] Braydon Ford MD #2 [place] [address] documented as of this encounter Visit Diagnoses Not on filedocumented in this encounter Additional Health Concerns Assessment Noted Time PHQ-9 Depression Total Score: 0 02/08/20 23 2:49 PM CDT documented as of this encounter Care Teams Glass Sander Relationship Specialty Start Date End Date Parth Mcdonald MD #[address] [address] PCP - General Family Medicine 07/08/15 Braydon Frod MD #2 [place] [address] Consulting Physician Pulmonary Disease 07/23/17 Reyes Byrnes MD [address] [facility] 10 [place] [address] Orthopaedic Surgery 07/23/17 Shayan Garcia APRN, EGG GRADER #2 [place] [address] Nurse Practitioner Advanced Practice Nurse 03/03/24 documented as of this encounter
--- OUTSIDE RECORDS SUMMARY | 2024-10-02 12:22 | XMS_ITS | Encounter Summary ---
Author Organization [facility] Address [address] [place] [address] Phone Care Team Providers Care Reed Cleaner Name Role Phone Parth Mcdonald MD Primary Care Provider [phone] Braydon Ford MD Unavailable Reyes Byrnes MD Unavailable [phone] Shayan Garcia APRN, CNP Unavailable [phone] Reason for Visit * Reason Comments Medication Refill Encounter Details Date Type Department Care Team (Late st Contact Info) Description 11/10/2022 Refill [facility] Medicine - [place] #2 [place] [address] Parth Mcdonald MD #[address] [address] Medication Refill Social History Tobacco Use Types [...] encounter Miscellaneous Notes * Telephone Encounter - Enriqueta Bautista RMA - 11/10/2022 10:12 AM [employer]CH[employer]ISING [employer]NS[employer] LVM to schedule HANDISING INTERNSHIP * Telephone Encounter - Debi Martin RN - 11/10/2022 10:04 AM CST Needs OV with provider. HANDISING INTERNSHIP * Telephone Encounter - Debi Martin RN - 11/10/2022 10:03 AM CST Medication failed the protocol, provider to review and approve the medication order if appropriate. Requested Prescriptions Pending Prescriptions Disp Refills metFORMIN (GLUCOPHAGE) 500 MG Tablet [Pharmacy Med Name: METFORMIN HCL 500 MG TABLET] 180 Tablet 0 Sig: TAKE ONE TABLET BY MOUTH TWICE A DAY WITH MEALS Biguanides Protocol Failed - 11/10/2022 12:48 AM Failed - Visit with relevant provider in past 6 months or upcoming 90 days Recent Visits No visits were found meeting these conditions. Showing recent visits within past 182 days and meeting all other requirements Future Appointments No visits were found meeting these conditions. Showing future appointments within next 90 days and meeting all other requirements Failed - HgA1C on record in past 6 months HGB-A1C Date Value Ref Range Status 11/01/2021 6.6 (A) 4 - 6 Final Failed - GFR on record in past 6 months GFR, EST. NONAFRICAN Date Value Ref Range Status 07/07/2021 >60 >=60 Final HANDISING INTERNSHIP documented in this encounter Plan of Treatment Upcoming Encounters Date Type Department Care Team (Late st Contact Info) Description 12/31/2024 10:15 AM CDT Office Visit [facility] Medical Group - Family Medicine [facility] #2 [place] [address] Parth Mcdonald MD #[address] [address] 01/20/2025 1:00 PM CDT Office Visit [facility]Y #2 [place] [address] Shayan Garcia APRN, PARTS DEPARTMENT MANAGER #2 [place] [address] 03/10/2025 10:00 AM CDT Office Visit [facility] Medical [facility] - Pulmonology & Sleep Medicine [facility] #2 [place] [address] Braydon Ford MD #2 [place] [address] documented as of this encounter Visit Diagnoses Not on filedocumented in this encounter Additional Health Concerns Assessment Noted Time PHQ-9 Depression Total Score: 0 07/07/20 21 11:00 AM CDT documented as of this encounter Care Teams Reed Cleaner Relationship Specialty Start Date End Date Parth Mcdonald MD #[address] [address] PCP - General Family Medicine 07/08/15 Braydon Ford MD #2 [place] [address] Consulting Physician Pulmonary Disease 07/23/17 Reyes Byrnes MD [address] [facility] 10 [place] [address] Orthopaedic Surgery 07/23/17 Shayan Garcia APRN, PARTS DEPARTMENT MANAGER #2 [place] [address] Nurse Practitioner Advanced Practice Nurse 03/03/24 documented as of this encounter
--- OUTSIDE RECORDS SUMMARY | 2024-10-02 12:22 | XMS_ITS | Encounter Summary ---
Author Organization [facility] Address [address] [place] [address] Phone Care Team Providers Care Triage Registered Nurse Name Role Phone Parth Mcdonald MD Primary Care Provider [phone] Braydon Ford MD Unavailable Reyes Byrnes MD Unavailable [phone] Shayan Garcia APRN, CONSTRUCTION ECONOMIST Unavailable [phone] Reason for Visit * Reason Comments Medication Refill Encounter Details Date Type Department Care Team (Late st Contact Info) Description 06/01/2020 Refill [facility] - [place] #2 [place] [address] Parth Mcdonald MD #[address] [address] Medication Refill Social History Tobacco Use Types [...] have Coronavirus / COVID-19? No / Unsure 05/17/2020 8:35 AM CDT documented as of this encounter Miscellaneous Notes * Telephone Encounter - Mercedes Lim RN - 06/02/2020 9:01 AM CDT Medication failed the protocol, provider to review and approve the medication order. Requested Prescriptions Pending Prescriptions Disp Refills busPIRone (BUSPAR) 10 MG Tablet [Pharmacy Med Name: BUSPIRONE HCL 10 MG TABLET] 60 Tab 3 Sig: TAKE ONE TABLET BY MOUTH TWICE A DAY Not Delegated - Psychiatry: Anxiolytics/Hypnotics Failed - 06/02/2020 9:00 AM Failed - This refill cannot be delegated Passed - Valid encounter within last 6 months Past Office Visits Recent Outpatient Visits 2 weeks ago Insomnia, unspecified type [facility] Parth Bernabe MD 3 months ago History of coronary artery stent placement [facility] Parth Lindo MD 5 months ago Essential hypertension [facility] Parth Bernabe MD 8 months ago Urinary tract infection without hematuria, site unspecified [facility] Parth Bernabe MD 1 year ago Environmental allergies [facility] Parth Lindo MD Upcoming Appointments Future Appointments In 2 weeks Clinic, [facility] Nurse [facility] In 2 months Parth Mcdonald MD [facility] LEGAL RECOVERY SPECIALIST - Recent and Past Visits Recent Visits Date Type Provider Dept 05/17/20 Office Visit Parth Mcdonald MD [facility] 02/12/20 Office Visit Parth Mcdonald MD [facility] 12/25/19 Telemedicine Parth Mcdonald MD [facility] 09/16/19 Office Visit Parth Mcdonald MD [facility] 03/11/19 Office Visit Parth Mcdonald MD [facility] Showing recent visits within past 460 days with a meds authorizing provider and meeting all other requirements Future Appointments Date Type Provider Dept 08/23/20 Appointment Parth Mcdonald MD [facility] Showing future appointments within next 90 days with a meds authorizing provider and meeting all other requirements 3 months ago (02/12/2020) busPIRone (BUSPAR) 10 MG Tablet Take 1 Tab by mouth 2 times daily. Dispense: 60 Tab? Refills: 3? Start: 02/12/2020? documented in this encounter Plan of Treatment Upcoming Encounters Date Type Department Care Team (Late st Contact Info) Description 12/31/2024 10:15 AM CDT Office Visit [facility] [address] [place] [address] Parth Mcdonald MD [address] [address] 01/20/2025 1:00 PM CDT Office Visit [facility] #2 [place] [address] Shayan Garcia, TANK CREWMEMBER, CONSTRUCTION ECONOMIST #2 [place] [address] 03/10/2025 10:00 AM CDT Office Visit [facility] - Pulmonology & Sleep Medicine [facility] #2 [place] [address] Braydon Ford MD #2 [place] [address] documented as of this encounter Visit Diagnoses Not on filedocumented in this encounter Additional Health Concerns Infection Onset Date Last Indicated Resolved Time COVID - 19 09/01/2020 09/01/2020 09/02/2020 4:52 AM SECTION HAND HELPER COVID - 19 Confirmed 09/01/2020 09/01/2020 021 12:18 AM SECTION HAND HELPER COVID - 19 09/13/2021 09/13/2021 10/03/2021 12:1 6 AM SECTION HAND HELPER COVID - 19 12/31/2021 12/31/2021 01/20/2022 12:1 6 AM CDT Assessment Noted Time PHQ-9 Depression Total Score: 0 05/17/20 8:00 AM CDT documented as of this encounter Care Teams Triage Registered Nurse Relationship Specialty Start Date End Date Parth Mcdonald MD #[address] [address] PCP - General Family Medicine 07/08/15 Braydon Ford MD #2 [place] [address] Consulting Physician Pulmonary Disease 07/23/17 Reyes Byrnes MD [address] [facility] 10 [place] [address] Orthopaedic Surgery 07/23/17 Shayan Garcia, TANK CREWMEMBER, CONSTRUCTION ECONOMIST #2 [place] [address] Nurse Practitioner Advanced Practice Nurse 03/03/24 documented as of this encounter
--- OUTSIDE RECORDS SUMMARY | 2024-10-02 12:22 | XMS_ITS | Encounter Summary ---
Author Organization [facility] Address [address] [address] Phone Care Team Providers Care Functional Consultant Name Role Phone Parth Mcdonald MD Primary Care Provider [phone] Braydon Ford MD Unavailable Reyes Byrnes MD Unavailable [phone] Shayan Garcia APRN, CNP Unavailable [phone] Reason for Visit * Reason Comments Medication Refill Encounter Details Date Type Department Care Team (Late st Contact Info) Description 02/08/2023 Refill [facility] Medicine - [place] #2 [place] [address] Parth Mcdonald MD #[address] [address] Medication Refill Social History Tobacco Use Types [...] suspected to have Coronavirus/COVID-19? No / Unsure 02/07/2023 2:36 PM CDT documented as of this encounter Miscellaneous Notes * Telephone Encounter - Rocio Arredondo RN - 02/08/2023 8:56 AM CDT Medication failed the protocol, provider to review and approve the medication order if appropriate. Requested Prescriptions Pending Prescriptions Disp Refills metFORMIN (GLUCOPHAGE) 500 MG Tablet [Pharmacy Med Name: METFORMIN HCL 500 MG TABLET] 180 Tablet 0 Sig: TAKE 1 TABLET BY MOUTH TWICE A DAY WITH MEALS Biguanides Protocol Failed - 02/08/2023 3:34 AM Failed - HgA1C on record in past 6 months HGB-A1C Date Value Ref Range Status 11/01/2021 6.6 (A) 4 - 6 Final Failed - GFR on record in past 6 months GFR, EST. NONAFRICAN Date Value Ref Range Status 07/07/2021 >60 >=60 Final Passed - Visit with relevant provider in past 6 months or upcoming 90 days Recent Visits Date Type Provider Dept 02/07/23 Office Visit Parth Mcdonald MD [facility] [...] 10:15 AM CDT Office Visit [facility] Medical [facility] - Family Medicine [facility] #2 [place] [address] Parth Mcdonald MD #[address] [place] [address] 01/20/2025 1:00 PM CDT Office Visit [facility] #2 [facility] [place] [address] Shayan Garcia APRN, STORM SASH MAKER #2 [facility] [place] [address] 03/10/2025 10:00 AM CDT Office Visit [facility] - Pulmonology & Sleep Medicine [facility] #2 [facility] [place] [address] Braydon Ford MD #2 [place] [address] documented as of this encounter Visit Diagnoses Not on filedocumented in this encounter Additional Health Concerns Assessment Noted Time PHQ-9 Depression Total Score: 0 02/08/20 23 2:49 PM CDT documented as of this encounter Care Teams Functional Consultant Relationship Specialty Start Date End Date Parth Mcdonald MD #[address] [address] PCP - General Family Medicine 07/08/15 Braydon Ford MD #2 [facility] [address] Consulting Physician Pulmonary Disease 07/23/17 Reyes Byrnes MD [address] [facility] [address] [place] [address] Orthopaedic Surgery 07/23/17 Shayan Garcia APRN, STORM SASH MAKER #2 [place] [address] Nurse Practitioner Advanced Practice Nurse 03/03/24 documented as of this encounter
--- OUTSIDE RECORDS SUMMARY | 2024-10-02 12:22 | XMS_ITS | Encounter Summary ---
Author Organization [facility] Address [address] [place] [address] Phone Care Team Providers Care Wash Test Checker Name Role Phone Parth Mcdonald MD Primary Care Provider [phone] Braydon Ford MD Unavailable Reyes Byrnes MD Unavailable [phone] Shayan Garcia APRN, CNP Unavailable + [phone] Reason for Visit * Reason Comments Medication Refill Encounter Details Date Type Department Care Team (Late st Contact Info) Description 03/12/2020 Refill [facility] #1 [place] [address] Braydon Ford MD #2 [place] [address] Medication Refill Social History Tobacco [...] have Coronavirus / COVID-19? No / Unsure 02/23/2020 9:03 AM CDT documented as of this encounter Plan of Treatment Upcoming Encounters Date Type Department Care Team (Late st Contact Info) Description 12/31/2024 10:15 AM CDT Office Visit [facility] - Family Medicine [facility] #2 [place] [address] Parth Mcdonald MD #[address] [address] 01/20/2025 1:00 PM CDT Office Visit [facility] #2 [place] [address] Shayan Garcia, WIRE SPOOLER, EXHIBITOR SALES #2 [place] [address] 03/10/2025 10:00 AM CDT Office Visit [facility] Medical [facility] - Pulmonology & Sleep Medicine [facility] #2 [place] [address] Braydon Ford MD #2 [place] [address] documented as of this encounter Visit Diagnoses Not on filedocumented in this encounter Additional Health Concerns Infection Onset Date Last Indicated Resolved Time COVID - 19 09/01/2020 09/01/2020 09/02/2020 4:52 AM FRONT END ASSISTANT COVID - 19 Confirmed 09/01/2020 09/01/202009/21/ 021 12:18 AM FRONT END ASSISTANT COVID - 19 09/13/2021 09/13/2021 10/03/2021 12:1 6 AM FRONT END ASSISTANT COVID - 19 12/31/2021 12/31/2021 01/20/2022 12:1 6 AM CDT Assessment Noted Time PHQ-9 Depression Total Score: 0 09/24/19 19 6:19 AM FRONT END ASSISTANT documented as of this encounter Care Teams Wash Test Checker Relationship Specialty Start Date End Date Parth Mcdonald MD #[address] [address] PCP - General Family Medicine 07/08/15 Braydon Ford MD #2 [place] [address] Consulting Physician Pulmonary Disease 07/23/17 Reyes Byrnes MD [address] [facility] 10 [place] [address] Orthopaedic Surgery 07/23/17 Shayan Garcia APRN, EXHIBITOR SALES #2 [place] [address] Nurse Practitioner Advanced Practice Nurse 03/03/24 documented as of this encounter
--- OUTSIDE RECORDS SUMMARY | 2024-10-02 12:22 | XMS_ITS | Encounter Summary ---
Author Organization [facility] Address [address] [place] [address] Phone Care Team Providers Care Psychiatric Registered Nurse Name Role Phone Parth Mcdonald MD Primary Care Provider [phone] Braydon Ford MD Unavailable Reyes Byrnes MD Unavailable [phone] Shayan Garcia APRN, CNP Unavailable + [phone] Reason for Visit * Reason Comments Medication Refill Encounter Details Date Type Department Care Team (Late st Contact Info) Description 07/09/2020 Refill [facility] #1 [place] [address] Braydon Ford MD #2 [place] [address] Medication Refill Social History Tobacco [...] have Coronavirus / COVID-19? No / Unsure 06/21/2020 9:03 AM CDT documented as of this encounter Plan of Treatment Upcoming Encounters Date Type Department Care Team (Late st Contact Info) Description 12/31/2024 10:15 AM CDT Office Visit [facility] - Family Medicine [facility] #2 [place] [address] Parth Mcdonald MD #[address] [address] 01/20/2025 1:00 PM CDT Office Visit [facility] #2 [place] [address] Shayan Garcia APRN, HORTICULTURAL SERVICES SUPERVISOR #2 [place] [address] 03/10/2025 10:00 AM CDT Office Visit [facility] Medical [facility] - Pulmonology & Sleep Medicine [facility] #2 [place] [address] Braydon Ford MD #2 [place] [address] documented as of this encounter Visit Diagnoses Not on filedocumented in this encounter Additional Health Concerns Infection Onset Date Last Indicated Resolved Time COVID - 19 09/01/2020 09/01/2020 09/02/2020 4:52 AM LEAD BURNER APPRENTICE COVID - 19 Confirmed 09/01/2020 09/01/2020 021 12:18 AM LEAD BURNER APPRENTICE COVID - 19 09/13/2021 09/13/2021 10/03/2021 12:1 6 AM LEAD BURNER APPRENTICE COVID - 19 12/31/2021 12/31/2021 01/20/2022 12:1 6 AM CDT Assessment Noted Time PHQ-9 Depression Total Score: 0 05/17/20 8:00 AM CDT documented as of this encounter Care Teams Psychiatric Registered Nurse Relationship Specialty Start Date End Date Parth Mcdonald MD #[address] [address] PCP - General Family Medicine 07/08/15 Braydon Ford MD #2 [place] [address] Consulting Physician Pulmonary Disease 07/23/17 Reyes Byrnes MD [address] [facility] 10 [place] [address] Orthopaedic Surgery 07/23/17 Shayan Garcia APRN, HORTICULTURAL SERVICES SUPERVISOR #2 [place] [address] Nurse Practitioner Advanced Practice Nurse 03/03/24 documented as of this encounter
--- OUTSIDE RECORDS SUMMARY | 2024-10-02 12:22 | XMS_ITS | Encounter Summary ---
Author Organization [facility] Address [address] [place] [address] Phone Care Team Providers Care Machine Cementer And Folder Name Role Phone Parth Mcdonald MD Primary Care Provider [phone] Braydon Ford MD Unavailable Reyes Byrnes MD Unavailable [phone] Shayan Garcia APRN, MALACHI Unavailable + [phone] Reason for Visit * Reason Comments Medication Refill Encounter Details Date Type Department Care Team (Late st Contact Info) Description 01/11/2022 Refill [facility] #2 [place] [address] Gos[facility] Birmingham PAC #2 [place] [address] Medication Refill Social History Tobacco Use Types [...] suspected to have Coronavirus/COVID-19? No / Unsure 12/31/2021 1:00 PM CDT documented as of this encounter Miscellaneous Notes * Telephone Encounter - Nellie Aguilar RN - 01/11/2022 12:01 PM CDT Medication failed the protocol, provider to review and approve the medication order if appropriate. Requested Prescriptions Pending Prescriptions Disp Refills rosuvastatin (CRESTOR) 20 MG Tablet [Pharmacy Med Name: ROSUVASTATIN CALCIUM 20 MG TAB] 90 Tablet 0 Sig: TAKE 1 TABLET BY MOUTH EVERY DAY AT NIGHT Hmg CoA Reductase Inhibitors Protocol Failed - 01/11/2022 11:58 AM Failed - Lipid panel in past 12 [...] Type Provider Dept 11/01/21 Office Visit Sanford Fagan, MASH PREPARATORY OPERATOR, CLINIC MGR [facility] 09/12/21 Telemedicine Parth Mcdonald MD [facility] 07/25/21 Office Visit Gosia Birmingham PAC [facility] 07/07/21 Office Visit Parth Mcdonald MD [facility] [place] 02/28/21 [facility] [place] 02/03/21 Office Visit Parth Mcdonald MD [facility] Showing recent visits within past 365 days and meeting all other requirements Future Appointments No visits were found meeting these conditions. Showing future appointments within next 90 days and meeting all other requirements documented in this encounter Plan of Treatment Upcoming Encounters Date Type Department Care Team (Late st Contact Info) Description 12/31/2024 10:15 AM CDT [facility] - Family Medicine - [place] #2 [place] [address] Parth Mcdonald MD #[address] [address] 01/20/2025 1:00 PM CDT Office Visit [facility] #2 [place] [address] Shayan Garcia, MASH PREPARATORY OPERATOR, CLINIC MGR #2 [place] [address] 03/10/2025 10:00 AM CDT Office Visit [facility] - Pulmonology & Sleep Medicine [facility] #2 [place] [address] Braydon Ford MD #2 [place] [address] documented as of this encounter Visit Diagnoses Not on filedocumented in this encounter Additional Health Concerns Infection Onset Date Last Indicated Resolved Time COVID - 19 12/31/2021 12/31/2021 01/20/2022 12:1 6 AM CDT Assessment Noted Time PHQ-9 Depression Total Score: 0 07/07/20 21 11:00 AM CDT documented as of this encounter Care Teams Machine Cementer And Folder Relationship Specialty Start Date End Date Parth Mcdonald MD #[address] [address] PCP - General Family Medicine 07/08/15 Braydon Ford MD #2 [place] [address] Consulting Physician Pulmonary Disease 07/23/17 Reyes Byrnes MD [address] [facility] 10 [place] [address] Orthopaedic Surgery 07/23/17 Shayan Garcia APRN, CLINIC MGR #2 [place] [address] Nurse Practitioner Advanced Practice Nurse 03/03/24 documented as of this encounter
--- OUTSIDE RECORDS SUMMARY | 2024-10-02 12:22 | XMS_ITS | Encounter Summary ---
Author Organization [facility] Address [address] [place] [address] Phone Care Team Providers Care M48/M60 Tank Driver Name Role Phone Parth Mcdonald MD Primary Care Provider [phone] Braydon Ford MD Unavailable Reyes Byrnes MD Unavailable [phone] Shayan Garcia APRN, CNP Unavailable [phone] Reason for Visit * Reason Comments Medication Refill Encounter Details Date Type Department Care Team (Late st Contact Info) Description 01/26/2023 Refill [facility] - [place] #2 [place] [address] Parth Mcdonald MD #[address] [address] Medication Refill Social History Tobacco Use Types [...] Telephone Encounter - Debi Martin RN - 01/26/2023 5:00 PM CDT Images from the original note were not included. Esomeprazole Magnesium Dispensed Days Supply Quantity Provider Pharmacy ESOMEPRAZOLE MAG DR 40 MG CAP 01/08/2023 90 90 Each Parth Mcdonald MD [facility] ... [facility]OME[facility] MAG DR 40 MG CAP 10/11/2022 90 90 Each Parth Mcdonald MD [facility] ... documented in this encounter Plan of Treatment Upcoming Encounters Date Type Department Care Team (Late st Contact Info) Description 12/31/2024 10:15 AM CDT [facility] Family [facility] #2 [place] [address] Parth Mcdonald MD #[address] [address] 01/20/2025 1:00 PM CDT Office Visit [facility] #2 [place] [address] Shayan Garcia, MERCHANT MILLER, ONLINE FACILITATOR #2 [place] [address] 03/10/2025 10:00 AM CDT Office Visit [facility] - Pulmonology & Sleep Medicine - [place] #2 [place] [address] Braydon Ford MD #2 [place] [address] documented as of this encounter Visit Diagnoses Not on filedocumented in this encounter Additional Health Concerns Assessment Noted Time PHQ-9 Depression Total Score: 0 07/07/20 21 11:00 AM CDT documented as of this encounter Care Teams M48/M60 Tank Driver Relationship Specialty Start Date End Date Parth Mcdonald MD #[address] [address] PCP - General Family Medicine 07/08/15 Braydon Ford MD #2 [place] [address] Consulting Physician Pulmonary Disease 07/23/17 Reyes Byrnes MD [address] [facility] 10 [place] [address] Orthopaedic Surgery 07/23/17 Shayan Garcia APRN, ONLINE FACILITATOR #2 [place] [address] Nurse Practitioner Advanced Practice Nurse 03/03/24 documented as of this encounter
--- OUTSIDE RECORDS SUMMARY | 2024-10-02 12:22 | XMS_ITS | Encounter Summary ---
Author Organization [facility] Address [address] 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 Requested Prescriptions Pending Prescriptions Disp Refills busPIRone (BUSPAR) 10 MG Tablet [Pharmacy Med Name: BUSPIRONE HCL 10 MG TABLET] 180 Tablet 1 Sig: TAKE ONE TABLET BY MOUTH TWICE A DAY Not Delegated - Psychiatry: Anxiolytics/Hypnotics Failed - 10/27/2020 12:19 AM Failed - This refill cannot be delegated Passed - Valid encounter within last 6 months Past Office Visits Recent Outpatient Visits Yesterday Flank pain [facility] Medical [facility] - Family Medicine - Parth Lindo MD 1 month ago Acute low back pain with sciatica, sciatica laterality unspecified, unspecified back pain laterality [facility] [place] [facility] APN, MALACHI 2 months ago Centrilobular emphysema (HCC[facility], MALACHI 5 months ago Insomnia, unspecified type [facility] - Parth Lindo MD 8 months ago History of coronary artery stent placement [facility] Parth Bernabe MD Upcoming Appointments Future Appointments In 1 week [facility] 2ND VACCINE CLINIC [facility] Medical [facility] - Family [place] [facility] [place] In 1 month Parth Mcdonald MD 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 - Recent and Past Visits Recent Visits Date Type Provider Dept 10/26/20 Office Visit Parth Mcdonald MD [facility] 09/10/20 Telemedicine Sanford Fagan APN, MALACHI [facility] 08/24/20 Office Visit Sanford Fagan APN, ADJUNCT PROFESSOR [facility] [place] 05/17/20 Office Visit [facility]cd[facility] MD [facility] [...] authorizing provider and meeting all other requirements IC DESIGNER documented in this encounter Plan of Treatment Upcoming Encounters Date Type Department Care Team (Late st Contact Info) Description 12/31/2024 10:15 AM CDT Office Visit [facility] [address] [place] [address] Parth Mcdonald MD #[address] [facility] [address] [place] [address] 01/20/2025 1:00 PM CDT Office Visit [facility] #[address] [place] [address] Shayan Garcia APRN, ADJUNCT PROFESSOR #2 [place] [address] 03/10/2025 10:00 AM CDT Office Visit [facility] - Pulmonology & Sleep Medicine [facility] #2 [place] [address] Braydon Ford MD #2 [place] [address] documented as of this encounter Visit Diagnoses Not on filedocumented in this encounter Additional Health Concerns Infection Onset Date Last Indicated Resolved Time COVID - 19 09/13/2021 09/13/2021 10/03/2021 12:1 6 AM 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 COVID - 19 12/31/2021 12/31/2021 01/20/2022 12:1 6 AM CDT Assessment Noted Time PHQ-9 Depression Total Score: 0 05/17/20 8:00 AM CDT documented as of this encounter Care Teams Buff Wheel Fabricator Relationship Specialty Start Date End Date Parth Mcdonald MD #2 [place] [address] PCP - General Family Medicine 07/08/15 Braydon Ford MD #2 [place] [address] Consulting Physician Pulmonary Disease 07/23/17 Reyes Byrnes MD [address] [facility] [address] [facility] 10 [place] [address] Orthopaedic Surgery 07/23/17 Shayan Garcia APRN, ADJUNCT PROFESSOR #2 [place] [address] Nurse Practitioner Advanced Practice Nurse 03/03/24 documented as of this encounter
--- OUTSIDE RECORDS SUMMARY | 2024-10-02 12:22 | XMS_ITS | Clinical Summary ---
Author Organization [facility] Address [address] [place] [address] Phone Care Team Providers Care Patternmaker All Around Name Role Phone Parth Mcdonald MD Primary Care Provider [phone] Braydon Ford MD Unavailable Reyes Byrnes MD Unavailable [phone] Shayan Garcia APRN, CNP Unavailable [phone] Allergies Active Allergy Reactions Criticality Noted Date Comments Nickel Rash High 08/19/2015 Medications Aspirin 81 MG Tablet Take 81 mg by mouth daily. Active Multiple Vitamins-Mineral s (MULTIVITAMIN PO) Take 1 Tablet by mouth daily. Active Glucose Blood (BLOOD GLUCOSE TEST STRIPS) StripIndications :Type 2 diabetes mellitus treated without insulin (HCC) To check blood sugar daily. 100 Each 3 0 Active Glucose Blood (BLOOD GLUCOSE TEST STRIPS) Strip Check blood sugar daily. 100 Each 3 0 Active Blood Pressure Monitoring (BLOOD PRESSURE CUFF) MiscIndications: Essential hypertension Dispense battery-operat ed arm cuff Dx: I10 1 Each 0 Active Lancets (OneTouch Delica Plus [id number]) MiscIndications: Type 2 diabetes mellitus treated without insulin ([facility]) USE ONE LANCET TO PRICK SKIN ONCE DAILY 100 Each 3 1 Active OneTouch Verio Strip CHECK BLOOD SUGAR DAILY 100 Strip 3 1 Active BIOTIN FORTE PO Take 10,000 mg by mouth. Active albuterol 108 (90 Base) MCG/ACT Aerosol Solution take 2 Puffs by inhalation every 4 hours as needed for Wheezing. 18 g 5 4 Active rOPINIRole (REQUIP) 3 MG Tablet Take 1 Tablet by mouth nightly. 90 Tablet 3 4 Active losartan (COZAAR) 50 MG Tablet TAKE 1 TABLET BY MOUTH EVERY DAY 90 Tablet 3 4 Active metFORMIN (GLUCOPHAGE) 500 MG Tablet TAKE 1 TABLET BY MOUTH TWICE A DAY WITH FOOD 180 Tablet 1 4 Active citalopram (CeleXA) 40 MG Tablet TAKE 1 TABLET BY MOUTH EVERY DAY 90 Tablet 3 4 Active alendronate (FOSAMAX) 70 MG TabletIndication s:Osteopenia, unspecified location TAKE 1 TABLET BY MOUTH ONE TIME PER WEEK 12 Tablet 2 4 Active esomeprazole (NexIUM) 40 MG CAPSULE DELAYED RELEASE TAKE 1 CAPSULE BY MOUTH EVERY DAY BEFORE BREAKFAST 90 Capsule 1 4 Active dicyclomine (BENTYL) 10 MG Capsule Take 10 mg by mouth. 4 Active Fluticasone Furoate-Vilanter ol (Breo Ellipta) 100-25 MCG/ACT AEROSOL POWDER, BREATH ACTIVATEDIndicat ions:Chronic obstructive pulmonary disease with acute lower respiratory infection (HCC) take 1 Puff by inhalation daily. 60 Each 5 4 Active metoprolol tartrate (LOPRESSOR) 25 MG TabletIndication s:Essential hypertension TAKE 1 TABLET BY MOUTH TWICE A DAY 180 Tablet 1 4 Active solifenacin (VESICARE) 10 MG TabletIndication s:OAB (overactive bladder) Take 1 Tablet by mouth daily. 90 Tablet 1 4 Active rosuvastatin (CRESTOR) 20 MG Tablet TAKE 1 TABLET BY MOUTH EVERY DAY AT NIGHT 90 Tablet 2 4 Active acetaminophen-co deine (TYLENOL #3) 300-30 MG TabletIndication s:Chronic right flank pain Take 1 Tablet by mouth 2 times daily as needed for Moderate or more severe pain for up to 30 doses. 30 Tablet 4 025 Discontin ued(Med List Clean Up) busPIRone (BUSPAR) 15 MG TabletIndication s:Anxiety Take 1 Tablet by mouth 2 times daily. 180 Tablet 1 4 025 Discontin ued(Med List Clean Up) Active Problems Problem Noted Date Diagnosed Date Anemia, normocytic normochromic 05/25/2024 Weight loss 05/08/2024 Chronic right flank pain 01/30/2024 Kidney stones 01/30/2024 Frequent UTI 01/16/2024 Right flank pain 01/16/2024 History of kidney stones 01/16/2024 Ischemic colitis 10/11/2023 PAD (peripheral artery disease) 03/11/2023 Urinary incontinence 02/07/2023 Postmenopausal 02/07/2023 Chronic obstructive pulmonary disease 02/07/2023 Wheezing 02/07/2023 Discoloration of skin of toe 02/07/2023 Leg pain, bilateral 02/07/2023 COVID-19 03/01/2022 Depression 11/29/2020 Chronic narcotic use 11/29/2020 Abnormal x-ray of lumbar spine 11/08/2020 Lumbar spondylosis 11/08/2020 Lumbar back pain 10/26/2020 Insomnia 05/17/2020 History of coronary artery stent placement 02/11 Unstable angina 02/02/2020 Pure hypercholesterolemia 02/02/2020 Coronary artery disease with unstable angina pec toris 02/02/2020 Centrilobular emphysema 12/30/2019 Ex-smoker 12/25/2019 Type 2 diabetes mellitus treated without insulin 09/16/2019 Restless legs syndrome (RLS) 03/17/2019 Environmental allergies 03/11/2019 Encounter for screening mammogram for breast can cer 10/02/2018 Postprandial diarrhea 06/25/2018 Postprandial bloating 06/10/2018 OK, old 10/05/2017 Anxiety 07/23/2017 Gastroesophageal reflux disease 10/17/2016 KELIN (obstructive sleep apnea) 10/04/2016 SOB (shortness of breath) 06/15/2016 Lung nodule 06/15/2016 Pulmonary hypertension 06/15/2016 Essential hypertension 02/04/2016 Hyperlipidemia 02/04/2016 Non morbid obesity 02/04/2016 Diabetes mellitus type 2, diet-controlled 2015 Neoplasm Pain in limb Encounters Date Type Department Care Team Description 09/26/2024 2:00 PM ACCOUNTS PAYABLE TECHNICIAN Office Visit [facility] [address] [place] [address] Sanford Fagan APRN, MALACHI Sprain of left ankle, unspecified ligament, subsequent encounter (Primary Dx) Discharge Disposition: Discharged to home or Selfcare 09/26/2024 Travel 09/23/2024 Telephone [facility] [address] [place] [phone] Parth Mcdonald MD Follow-up 09/09/2024 10:00 AM ACCOUNTS PAYABLE TECHNICIAN Office Visit [facility] Pulmonology & Sleep Medicine [facility] [address] [place] [address] Braydon Ford MD Centrilobular emphysema (HCC) (Primary Dx); Lung nodule; Essential hypertension; Non morbid obesity; Restless legs syndrome (RLS); KELIN (obstructive sleep apnea) Discharge Disposition: Discharged to home or Selfcare 09/09/2024 Travel 07/30/2024 Telephone [facility] Pulmonology & Sleep [facility] [address] [place] [address] Braydon Ford MD Results 07/26/2024 Refill [facility] [address] [place] [address] Parht Mcdonald MD Medication Refill 07/22/2024 1:15 PM ACCOUNTS PAYABLE TECHNICIAN Office Visit [facility] PHYSICIAN [facility] UROLOGY [address] [place] [address] Shayan Garcia APRN, QUALITY ANALYST OAB (overactive bladder) (Primary Dx); Kidney stones Discharge Disposition: Discharged to home or Selfcare 07/22/2024 10:30 AM ACCOUNTS PAYABLE TECHNICIAN - 07/22/2024 11:59 PM ACCOUNTS PAYABLE TECHNICIAN Hospital Encounter [facility] Respiratory Therapy [address] [place] [address] Braydon Ford MD Discharge Disposition: Discharged to home or Selfcare 07/20/2024 Travel from Last 3 Months Immunizations Immunization Administration Dates Next Due Covid-19, Mrna, Lnp-s, Bival ent, Moderna, 50 Mcg or 25 mcg dose 10/10/2022 Covid-19, Mrna, Lnp-s, PF, 1 00 mcg/0.5 mL Dose (Moderna) 11/06/2020,10/09/2020 Influenza Vaccine 06/15/2015 Influenza Vaccine greater than 3 yrs 06/23/2016, 09/03/2013 Influenza Vaccine, Quadrivalent, PF 07/04,05/17/2020,09/16/2019,06/25,05/14/2017 Influenza, Quadrivalent, Adjuvanted 05/11/2023 Influenza, Seasonal, Injecta ble, Undefined 06/23/2016,06/18/2014,09/03/2013 Influenza, Trivalent, Adjuvanted, PF 05/08/2024 Pneumococcal Vaccine - 13 Valent 06/21/2020 Pneumococcal Vaccine Adult - 23 Valent 0 Pneumococcal conjugate PCV20 , polysaccharide TMN315 conjugate, adjuvant, PF 05/11/2023 RSV, Recombinant, Protein Peguero bunit Rsvpref, Adjuvant Recon (Arexvy) 08/29/2023 TDAP Vaccine 02/08/2010,08/23/2005 Family History Medical History Relation Name Comments Hypertension Brother Colon Cancer Father Hypertension Father Hypertension Mother Stroke Mother Other-comment Sister Graves Disease Relation Name Status Comments Brother Father Mother Sister Social History Tobacco Use Types Packs/Day Years Used Date Smoking Tobacco: Former Cigarettes 1 30.6 S tarted: 04/03/2021 Smokeless Tobacco: Never Tobacco Cessation:Counseling Given: No Alcohol Use Standard Drinks/Week Comments Not Currently [...] often do you attend chur ch or mandaeism services? 1 to 4 times per year [...] Recorded Total Score - Questions 1-9 0 09/04 [facility] - Occupational [...] place to sleep or slept in a residential (including now)? No 01/16/2024 Sexually Active Control [...] file Not on file Not on file Last Filed Vital Signs Vital Sign Reading Time Taken Comments Blood Pressure 118/78 09/26/2024 1:56 PM ACCOUNTS PAYABLE TECHNICIAN Pulse 64 09/26/2024 1:56 PM ACCOUNTS PAYABLE TECHNICIAN Temperature 36.2 ??C (97.2 ??F) 09/26/2024 1:56 PM CS T Respiratory Rate 18 09/26/2024 1:56 PM ACCOUNTS PAYABLE TECHNICIAN Oxygen Saturation 96% 09/26/2024 1:56 PM ACCOUNTS PAYABLE TECHNICIAN Inhaled Oxygen Concentration - - Weight 86.3 kg (190 lb 4.8 oz) 09/26/2024 1:56 P M ACCOUNTS PAYABLE TECHNICIAN Height 166.4 cm (5' 5.5 ) 09/26/2024 1:56 PM ACCOUNTS PAYABLE TECHNICIAN Body Mass Index 31.19 09/26/2024 1:56 PM ACCOUNTS PAYABLE TECHNICIAN Plan of Treatment Upcoming Encounters Date Type Department Care Team (Late st Contact Info) Description 12/31/2024 10:15 AM CDT Office Visit [facility] - [facility] Medicine - [place] [place] [address] Parth Mcdonald MD [address] [address] 01/20/2025 1:00 PM CDT Office Visit [facility] UROLOGY [address] [place] [address] Shayan Garcia GRADE AND CENTER MARKER, QUALITY ANALYST [address] [place] [address] 03/10/2025 10:00 AM CDT Office Visit [facility] - Pul[facility]ology [facility] Medicine [facility] [address] [place] [phone] Braydon Ford MD [address] [place] [phone] Health Maintenance Due Date Last Done Comments Diabetes: Foot Exam 1953 Cologuard 2003 Immunochemical Fecal Occult Blood 2003 Zoster Immunization (1 of 2) 2003 Td Immunization Every 10 Years (Adults With 1 Tdap) 02/09/2020 02/08/2010, 08/23/2005 Diabetes: Eye Exam 01/17/2024 01/16/2023, 01/10/2022 SARS-COV-2 Immunization ( season) 2024 08/29/2023, 10/10/2022, 06/30/2021, Additional history exists Diabetes: Hemoglobin A1c 11/19/2024 024, 12/07/2023, 10/05/2023, Additional history exists DEXA Bone Density 04/23/2025 04/23/2023 Diabetes: Nephropathy Screening 05/22/2025 05/22/2024, 01/26/2024, 10/05/2023, Additional history exists Mammogram 05/15/2026 05/15/2024, 04/04, 12/06/2020, Additional history exists Colonoscopy 07/04/2029 07/04/2024, 09/2023, 07/04/2024, Additional history exists Colorectal Cancer Screening 07/04/2029 07/04/2024, 09/2023, 07/04/2024, Additional history exists Lung Cancer Screening Discontinued 10/18/2016, 016 Hepatitis C Virus (HCV) Screening Completed 03/18/2019 Pneumococcal Immunization (50+ years) Completed 05/11/2023, 06/21/2020, 09/03/2009 Pneumococcal Immunization Combined Discontinued 05/11/2023, 06/21/2020, 09/03/2009 Respiratory Syncytial Virus (RSV) Immunization (Adult) Completed 08/29/2023 Influenza Immunization Completed , 05/11/2023, 07/14/2021, Additional history exists Hepatitis B Immunization Aged Out No longer eligible based on patient's age to complete this topic Meningococcal Immunization (ACWY) Aged Out No longer eligible based on patient's age to complete this topic Rotavirus Immunization Aged Out No lo nger eligible based on patient's age to complete this topic Medical Devices Implanted Type Area Mooner Device Identifier Shelf Expiration Date Model / Serial / Lot Stent Coronary Radha Xience Everolimus Eluting [id number] - [id number] Implanted:Qty: 1 on 02/03/2020 by Samra Muñoz MD at [facility] IMPLANT N/A: Coronary [employer] 09/16/2020 [id number] Stent Cor 15mm 2mm Multi-Link Mini Vision Cocr Radopq Bln Expand Rpdexc Dlv Sys Acpt .014in Gw - [id number] Implanted:Qty: 1 on 02/03/2020 by Samra Muñoz MD at [facility] IMPLANT N/A: Coronary [employer] 10/03/2021 [id number] Stent Coronary Radha Xience Everolimus Eluting 3.0xbw2av - [id number] Implanted:Qty: 1 on 02/03/2020 by Samra Mu[facility]oz MD at [facility] IMPLANT N/A: Coronary [employer] 04/13/2020 [id number] Device Clsr 70cm 6fr Angio-Seal Vip .035in Vasc Collagen Valuelink Gw Insertion Shth J Skirt Maker - [id number] Implanted:Qty: 1 on 02/03/2020 by Samra Muñoz MD at [facility] IMPLANT Right: Jesica [employer] 09/02/2020 [id number] / [id number] Procedures Procedure Name Priority Date/Time Associated Diagnosis Comments XR - LOWER EXTREMITY 09/22/2024 12:00 AM ACCOUNTS PAYABLE TECHNICIAN ALEJANDRO,POST-VOID RES,US,NON-IMAGING Routine 07/22/2024 1:15 PM ACCOUNTS PAYABLE TECHNICIAN OAB (overactive bladder) COMPLETE PFT W + W/O BRONCHODILATOR Routine 07/22/2024 Pulmonary emphysema, unspecified emphysema type (HCC) COLONOSCOPY 07/04/2024 12:00 AM CDT COLONOSCOPY 07/04/2024 12:00 AM CDT CMP (COMPREHENSIVE METABOLIC PANEL) Routine 05/22/2024 7:20 AM CDT Hyperlipidemia, unspecified hyperlipidemia type HEMOGLOBIN A1C W/ ESTIMATED GLUCOSE Today 05/22/2024 7:20 AM CDT Type 2 diabetes mellitus treated without insulin (HCC) [facility] SCREENING BILATERAL DIGITAL W CAD W KEVIN Routine 05/15/2024 12:56 PM CDT Encounter for screening mammogram for breast cancer [facility] BONE DENSITOMETRY AXIAL SKELETON Routine 04/23/2023 1:08 PM CDT Postmenopausal DILATED EYE EXAM 01/16/2023 1 2:00 AM CDT HEPATITIS C ANTIBODY Routine 03/18/2019 9:18 AM CDT Encounter for hepatitis C screening test for low risk patient CT CHEST W/O CONTRAST Routine 10/18/2016 1:23 PM ACCOUNTS PAYABLE TECHNICIAN Lung nodule from Last 3 Months or Most Recently Relevant to Health Maintenance Results * XR - LOWER EXTREMITY (09/22/2024 12:00 AM ACCOUNTS PAYABLE TECHNICIAN) 09/22/2024 us Provider Scan IMG DIAGNOSTIC ORDERABLES Final Result SCAN * ALEJANDRO,POST-VOID RES,US,NON-IMAGING (07/22/2024 1:15 PM ACCOUNTS PAYABLE TECHNICIAN) Narrative Slava Atkinson, RMA - 07/22/2024 1:15 PM ACCOUNTS PAYABLE TECHNICIAN Slava Atkinson, RMA ? 07/22/2024 ??1:52 PM POCT Bladder Scan collected per standing order of Wayne Garcia on 07/22/2024 PVR= 126 ML Shayan Garcia GRADE AND CENTER MARKER, QUALITY ANALYST CO - SURGERY Final Result * Complete PFT W + W/O Bronchodilator (07/22/2024) [facility] FVC 1.87 L FVC %Predicted 62 % FVC Post-Bronchodila tor 2.13 (L) FEV1 70 L FEV1 %Predicted 36 % FEV1 Post-Bronchodila tor 0.96 (L) FEV1/FVC 60 % FEF 25-75% 0.31 L/sec TLC 5.01 L TLC %Predicted 93 (Pleth) (L) RV 3.14 L RV %Predicted 135 (Pleth) (L) Airway Resistance 13.06 cmH2O/L/s DLCO 11.85 ml/min/mmH g DLCO %Predicted 53 (ml/min/mm Hg) Braydon Ford MD PFT ORDERABLES Final Result * HM COLONOSCOPY (07/04/2024 12:00 AM CDT) 07/04/2024 Parth Mcdonald MD PROCEDURE/MINOR SURGICAL OR DERABLES Final Result Performing Organization Address City/[facility]/ZIP Co de Phone Number SCAN * HM COLONOSCOPY (07/04/2024 12:00 AM CDT) 07/04/2024 Parth Mcdonald MD PROCEDURE/MINOR SURGICAL OR DERABLES Final Result SCAN * (ABNORMAL) HEMOGLOBIN A1C W/ ESTIMATED GLUCOSE (05/22/2024 7:20 AM CDT) Pathologist [facility] HGB-A1C 6.3(H) 4.0 - 6.0 % 05/22/2024 8:39 AM CDT [facility] Est Average Glucose 134.1 mg/dL 05/22/2024 8:39 AM CDT [facility] Blood Venipuncture / Unknown 05/22/2024 7:20 AM CDT 05/22/2024 7:42 AM CDT Narrative [facility] - 05/22/2024 8:39 AM CDT HEMOGLOBIN A1C: DIABETIC PATIENTS: WELL-CONTROLLED: ?? 6.2 - 7.0 INTERMEDIATE WELL-CONTROLLED: ??7.0 - 9.0 POORLY-CONTROLLED: ??>9.0 Parth Mcdonald MD CHEMISTRY ORDERABLES Final Result [facility] [address] [place] [address] * (ABNORMAL) CMP (COMPREHENSIVE METABOLIC PANEL) (05/22/2024 7:20 AM CDT) [facility] SODIUM 140 136 - 145 mmol/L 05/22/2024 8:08 AM CDT [facility] POTASSIUM 4.2 3.5 - 5.1 mmol/L 05/22/2024 8:08 AM CDT [facility] CHLORIDE 104 98 - 107 mmol/L 05/22/2024 8:08 AM CDT [facility] CO2, VENOUS 29 22 - 30 mmol/L 05/22/2024 8:08 AM CDT [facility] ANION GAP 11.2 <18.0 mmol/L 05/22/2024 8:08 AM CDT [facility] GLUCOSE 134(H) 70 - 99 mg/dL 05/22/2024 8:08 AM CDT [facility] BUN 12 10 - 20 mg/dL 05/22/2024 8:08 AM [facility] CREATININE, BLOOD 0.89 0.60 - 1.00 mg/dL 05/22/2024 8:08 AM [facility] BUN/CREATININE RATIO 13 12 - 20 ratio 05/22/2024 8:08 AM [facility] TOTAL PROTEIN 7.1 6.3 - 8.2 g/dL 05/22/2024 8:08 AM T [facility] ALBUMIN 4.3 3.5 - 5.0 g/dL 05/22/2024 8:08 AM [facility] A/G RATIO 1.5 1.0 - 2.2 05/22/2024 8:08 AM [facility] CALCIUM 9.2 8.7 - 10.5 mg/dL 05/22/2024 8:08 AM [facility] T BILI 0.4 0.2 - 1.2 mg/dL 05/22/2024 8:08 AM [facility] SGOT (AST) 17 5 - 34 U/L 05/22/2024 8:08 AM [facility] SGPT (ALT) 12 0 - 55 U/L 05/22/2024 8:08 AM [facility] ALKALINE PHOSPHATASE 49 40 - 150 U/L 05/22/2024 8:08 AM [facility] IS THE PATIENT REQUIRED TO BE FASTING? No 05/22/2024 8:08 AM [facility] GFR, ESTIMATED >60 >=60 05/22/2024 8:08 AM [facility] Comment: Creatinine Clearance is the preferred criteria for selecting drug dose adjustments in renally impaired patients. ??The GFR is provided as additional pertinent clinical information. GFR is reported in mL/min/1.73 sq m. Calculation based on the Chronic Kidney Disease Epidemiology Collaboration (CKD- EPI) equation refit without adjustment for race. GFR, EST. >60 >=60 024 8:08 AM [facility] GFR, EST. NONAFRICAN >60 >=60 05/22/2024 8:08 AM CDT [facility] Blood Venipuncture / Unknown 05/22/2024 7:20 AM CDT 05/22/2024 7:41 AM CDT Parth Mcdonald MD CHEMISTRY ORDERABLES Final Result [facility] [address] [place] [address] * DELVIS SCREENING BILATERAL DIGITAL W CAD W KEVIN (05/15/2024 12:56 PM CDT) Anatomical Region Laterality Modality breast Bilateral Mammography 05/15/2024 12:5 7 PM CDT Narrative 05/22/2024 3:07 PM CDT - DELVIS SCREENING BILATERAL DIGITAL W CAD W KEVIN BILATERAL DIGITAL SCREENING MAMMOGRAM 3D/2D WITH CAD WITH MEDIOLATERAL OBLIQUE CRANIOCAUDAL: 05/15/2024 The study was acquired using digital technology and interpreted from soft copy. Current study was also evaluated with ICAD version 7.2. 2D digital mammographic views, as well as 3D digital tomosynthesis were performed in the CC and MLO projections. ?? CLINICAL: Routine screening. Patient has no complaints. Patient reports 20 pound weight loss since last mammogram. No personal history of cancer. Sister with postmenopausal breast cancer. ?? COMPARISONS: Comparison is made to exams dated: ??04/23/2023, 12/06/2020, 10/13/2019, and 10/08/2018 [facility]. BREAST TISSUE:The breasts are almost entirely fatty. ?? FINDINGS: No significant masses, calcifications, or other findings are seen in either breast. ?? There has been no significant interval change. IMPRESSION: NEGATIVE There is no mammographic evidence of malignancy. A 1 year screening mammogram is recommended. ?? A letter will be sent to the patient with these results. The patient will be entered into a reminder system with a target due date of 1 year for her next screening exam. Electronically signed by: Mikayla Guerrero M.D. ? ab/penrad:05/18/2024 10:17:52 ?? Shipwright Helper(s): Jamila ?? JOSE R Lombardo)(Mario), [facility] letter sent: Normal Exam ?? Reading location: [place] Mammogram BI-RADS: Category 1: Negative Procedure Note Mikayla Guerrero MD - 05/22/2024 - DELVIS SCREENING BILATERAL DIGITAL W CAD W KEVIN BILATERAL DIGITAL SCREENING MAMMOGRAM 3D/2D WITH CAD WITH MEDIOLATERAL OBLIQUE CRANIOCAUDAL: 05/15/2024 The study was acquired using digital technology and interpreted from soft copy. Current study was also evaluated with n2v SolutionsD version 7.2. 2D digital mammographic views, as well as 3D digital tomosynthesis were performed in the CC and MLO projections. CLINICAL: Routine screening. Patient has no complaints. Patient reports 20 pound weight loss since last mammogram. No personal history of cancer. Sister with postmenopausal breast cancer. COMPARISONS: Comparison is made to exams dated: 04/23/2023, 12/06/2020, 10/13/2019, and 10/08/2018 [facility]. BREAST TISSUE:The breasts are almost entirely fatty. FINDINGS: No significant masses, calcifications, or other findings are seen in either breast. There has been no significant interval change. IMPRESSION: NEGATIVE There is no mammographic evidence of malignancy. A 1 year screening mammogram is recommended. A letter will be sent to the patient with these results. The patient will be entered into a reminder system with a target due date of 1 year for her next screening exam. Electronically signed by: Mikayla Guerrero M.D. ab/penrad:05/18/2024 10:17:52 Shipwright Helper(s): RT Mary(Pam)(M), [facility] letter sent: Normal Exam Reading location: [place] Mammogram BI-RADS: Category 1: Negative Parth Mcdonald MD IMG MAMMO ORDERABLES Final Result * [facility] BONE DENSITOMETRY AXIAL SKELETON (04/23/2023 1:08 PM CDT) Anatomical Region Laterality Modality BODY N/A Computed Radiogr aphy 04/23/2023 3:17 PM CDT Impressions 04/23/2023 3:20 PM CDT IMPRESSION: ?? Low bone mass. REFERENCE: Bone mineral density: ? Normal (T-score above or = -1.0) ? Low bone mass ??(T-score between -1.0 and -2.5) replaces the previously used term osteopenia ? Osteoporosis (T-score = or below -2.5) Medical evaluation for secondary causes of low bone mineral density may be appropriate. FRAX is a World Health Organization validated fracture risk assessment tool that calculates a person's 10 year probability of a major osteoporosis related fracture and hip fracture. ??According to the National Osteoporosis Foundation guidelines, postmenopausal women and men age 50 or older with low bone mass and a 10 year probability of a major osteoporosis related fracture = or greater than 20% or a 10 year probability of a hip fracture = or greater than 3% should be considered for treatment. For further information, including treatment recommendations, please refer to the 2013 ISCD Official Positions (http://www.iscd.org) and the NOF's Clinician's Guide to Prevention and Treatment of Osteoporosis (http://www.nof.org/professionals/clinical-guidelines) Narrative 04/23/2023 3:20 PM CDT EXAM DESCRIPTION: ?? DELVIS BONE DENSITOMETRY AXIAL SKELETON REASON FOR STUDY: ?? 68 y/o ?? year old ?? F ??with given history of screening. Mooner/Model: ?? [employer] (S/N [id number]) CLINICAL INFORMATION: Current height: ?? 65.5 ??inches ? Maximum height: 65.5 inches ? Weight: 220 pounds Risk factors: Family history of fracture. COMPARISON: ?? 03/07/2011 FINDINGS: AP LUMBAR SPINE L1-L4: Total BMD is ?? 1.207 ??g/cm2 T-score is 0.1 There has been a 9.6% increase in BMD which is statistically significant. LEFT HIP: Current Total BMD is 0.845 g/cm2 T-score is -1.3 There has been a 13.2% decrease in BMD which is statistically significant. Current femoral neck BMD is 0.719 g/cm2 T-score is -2.3 FRAX: 10 year risk for a major osteoporotic fracture is 20 %, 10 year risk for a hip fracture is 6.1 % THIS IS AN ELECTRONICALLY VERIFIED FINAL REPORT 04/23/2023 3:17 PM - Electronically signed by ??Jakob Puente M.D. AG: ELISA D: ??04/23/2023 3:17 PM T: ??04/23/2023 3:17 PM Report ID: [id number] Reading Location: ??[id number] Procedure Note Jakob Puente MD - 04/23/2023 EXAM DESCRIPTION: DELVIS BONE DENSITOMETRY AXIAL SKELETON REASON FOR STUDY: 68 y/o year old F with given history of screening. Mooner/Model: [employer] (S/N [id number]) CLINICAL INFORMATION: Current height: 65.5 inches Maximum height: 65.5 inches Weight: 220 pounds Risk factors: Family history of fracture. COMPARISON: 03/07/2011 FINDINGS: AP LUMBAR SPINE L1-L4: Total BMD is 1.207 g/cm2 T-score is 0.1 There has been a 9.6% increase in BMD which is statistically significant. LEFT HIP: Current Total BMD is 0.845 g/cm2 T-score is -1.3 There has been a 13.2% decrease in BMD which is statistically significant. Current femoral neck BMD is 0.719 g/cm2 T-score is -2.3 FRAX: 10 year risk for a major osteoporotic fracture is 20 %, 10 year risk for a hip fracture is 6.1 % THIS IS AN ELECTRONICALLY VERIFIED FINAL REPORT 04/23/2023 3:17 PM - Electronically signed by Jakob Puente M.D. AG: ELISA Report ID: [id number] Reading Location: [id number] IMPRESSION: Low bone mass. REFERENCE: Bone mineral density: Normal (T-score above or = -1.0) Low bone mass (T-score between -1.0 and -2.5) replaces the previously used term osteopenia Osteoporosis (T-score = or below -2.5) Medical evaluation for secondary causes of low bone mineral density may be appropriate. FRAX is a World Health Organization validated fracture risk assessment tool that calculates a person's 10 year probability of a major osteoporosis related fracture and hip fracture. According to the National Osteoporosis Foundation guidelines, postmenopausal women and men age 50 or older with low bone mass and a 10 year probability of a major osteoporosis related fracture = or greater than 20% or a 10 year probability of a hip fracture = or greater than 3% should be considered for treatment. For further information, including treatment recommendations, please refer to the 2013 ISCD Official Positions (http://www.iscd.org) and the NOF's Clinician's Guide to Prevention and Treatment of Osteoporosis (http://www.nof.org/professionals/clinical-guidelines) us Parth Mcdonald MD IMG DEXA ORDERABLES Final R esult * HM DILATED EYE EXAM (01/16/2023 12:00 AM CDT) 01/16/2023 us Provider Scan PROCEDURE/MINOR SURGICAL ORDERAB LES Final Result SCAN * HEPATITIS C ANTIBODY (03/18/2019 9:18 AM CDT) hepatitis C antibody 0.11 <1 S/CO 03/18/2019 10:47 PM CDT [facility] Comment: Signal/Cutoff ratio ??< 0.79 is Nondetected Signal/Cutoff ratio 0.80-0.99 is Grayzone Signal/Cutoff ratio > 0.99 is Detected Supplemental assays are recommended if signal/cutoff ratio is >/=1.00. ??Signal/cutoff ratio result >/= 5.00 is 97% predictive of positivity for recombinant immunoblot assay (RIBA) and will be reported to the [place] Department of Public Health as required. Blood specimen (specimen) Butterfly Puncture / Unknown 03/18/2019 9:18 AM CDT 03/18/2019 2:23 PM CDT us Parth Mcdonald MD CHEMISTRY ORDERABLES Final Result [facility] [address] [place] [address], [place] * CT CHEST W/O CONTRAST (10/18/2016 1:23 PM ACCOUNTS PAYABLE TECHNICIAN) Anatomical Region Laterality Modality Chest N/A Computed Tomogra phy 10/19/2016 9:49 AM ACCOUNTS PAYABLE TECHNICIAN Impressions 10/19/2016 9:52 AM ACCOUNTS PAYABLE TECHNICIAN IMPRESSION: ??Right base nodule has resolved completely. ??Chronic findings as above. Automated exposure control was used as a dose optimization technique for this examination. Narrative 10/19/2016 9:52 AM ACCOUNTS PAYABLE TECHNICIAN EXAMINATION: ??CT chest without contrast HISTORY: ??Follow-up pulmonary nodule COMPARISON: ??06/08/2016 TECHNIQUE: ??Unenhanced CT sections were obtained through the thorax FINDINGS: ??The right base nodule has resolved completely. ??No new or enlarging nodule is seen. ??Background lung parenchyma is unremarkable. ??Trachea and major airways are patent. ??Small heart size suggests hyperinflation. ??Moderate coronary arterial calcification. ??Thoracic inlet and thyroid gland are unremarkable. ?? Review of the upper abdomen reveals vascular calcification, adrenal adenomas, no acute abnormality. ??No acute osseous abnormality identified. THIS IS AN ELECTRONICALLY VERIFIED REPORT 10/19/2016 9:49 AM: ?? Joe Ernandez M.D. ? Joe Ernandez M.D. Radiologist AR:leonarda SONA Procedure Note Joe Ernandez MD - 10/19/2016 EXAMINATION: CT chest without contrast HISTORY: Follow-up pulmonary nodule COMPARISON: 06/08/2016 TECHNIQUE: Unenhanced CT sections were obtained through the thorax FINDINGS: The right base nodule has resolved completely. No new or enlarging nodule is seen. Background lung parenchyma is unremarkable. Trachea and major airways are patent. Small heart size suggests hyperinflation. Moderate coronary arterial calcification. Thoracic inlet and thyroid gland are unremarkable. Review of the upper abdomen reveals vascular calcification, adrenal adenomas, no acute abnormality. No acute osseous abnormality identified. THIS IS AN ELECTRONICALLY VERIFIED REPORT 10/19/2016 9:49 AM: Joe Ernandez M.D. Joe Ernandez M.D. Radiologist AR:leonarda SONA IMPRESSION: Right base nodule has resolved completely. Chronic findings as above. Automated exposure control was used as a dose optimization technique for this examination. 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 PRE-ARREST: Use entire range of life support measures to stabilize the patient. Care Teams Patternmaker All Around Relationship Specialty Start Date End Date Parth Mcdonald MD [address] [address] PCP - General Family Medicine 07/08/15 Braydon Ford MD [address] [place] [address] Consulting Physician Pulmonary Disease 07/23/17 Reyes Byrnes MD [address] [facility] [address] [place] [address] Orthopaedic Surgery 07/23/17 Shayan Garcia APRN, QUALITY ANALYST [address] [place] [address] Nurse Practitioner Advanced Practice Nurse 03/03/24
--- OUTSIDE RECORDS SUMMARY | 2024-10-02 12:22 | XMS_ITS | Encounter Summary ---
Author Organization [facility] Address [address] [place] [address] Phone Care Team Providers Care Audio/Video Engineer Name Role Phone Parth Mcdonald MD Primary Care Provider [phone] Braydon Ford MD Unavailable Reyes Byrnes MD Unavailable [phone] Shayan Garcia APRN, CNP Unavailable [phone] Reason for Visit * Reason Comments Medication Refill Encounter Details Date Type Department Care Team (Late st Contact Info) Description 01/01/2022 Refill [facility] - Family Medicine - [place] [address] [place] [address] Parth Mcdonald MD #[address] [address] Medication Refill Social History Tobacco Use Types [...] encounter Miscellaneous Notes * Telephone Encounter - Milagros Graham RN - 01/02/2022 10:42 AM CDT Medication failed the protocol, provider to review and approve the medication order if appropriate. Requested Prescriptions Pending Prescriptions Disp Refills busPIRone (BUSPAR) 15 MG Tablet [Pharmacy Med Name: BUSPIRONE HCL 15 MG TABLET] 180 Tablet 3 Sig: TAKE 1 TABLET BY MOUTH 2 TIMES DAILY. Buspirone (6 Month Refill Only) Protocol Failed - 01/01/2022 8:49 AM Failed - Has an encounter in the past 6 months with a depression or anxiety visit diagnosis Passed - Visit with relevant provider in past 6 months or upcoming 90 days Recent Visits Date Type Provider Dept 11/01/21 Office Visit Sanford Fagan APRN, MALACHI [facility] [place] [place] [facility] 09/12/21 Telemedicine Parth Mcdonald MD [facility] 07/25/21 Office Visit Gosia Birmingham PAC [facility] [place] [place] [facility] 07/07/21 Office Visit Parth Mcdonald MD [facility] [place] [place] [facility] Showing recent visits within past 182 [...] 12/31/2024 10:15 AM CDT Office Visit [facility] - Family Medicine [facility] [address] [place] [address] Parth Mcdonald MD #[address] [address] 01/20/2025 1:00 PM CDT Office Visit [facility] [address]2 [place] [address] Shayan Garcia APRN, AUDITING SPECIALIST [address] [place] [address] 03/10/2025 10:00 AM CDT Office Visit [facility] - Pulmonology & Sleep Medicine [facility] [address] [place] [address] Braydon Ford MD [address] [place] [address] documented as of this encounter Visit Diagnoses Not on filedocumented in this encounter Additional Health Concerns Infection Onset Date Last Indicated Resolved Time COVID - 19 12/31/2021 12/31/2021 01/20/2022 12:1 6 AM CDT Assessment Noted Time PHQ-9 Depression Total Score: 0 07/07/20 21 11:00 AM CDT documented as of this encounter Care Teams Audio/Video Engineer Relationship Specialty Start Date End Date Parth Mcdonald MD #[address] [address] PCP - General Family Medicine 07/08/15 Braydon Ford MD [address] [place] [address] Consulting Physician Pulmonary Disease 07/23/17 Reyes Byrnes MD [address] [facility] [address] [place] [address] Orthopaedic Surgery 07/23/17 Shayan Garcia APRN, AUDITING SPECIALIST [address] [place] [address] Nurse Practitioner Advanced Practice Nurse 03/03/24 documented as of this encounter
--- OUTSIDE RECORDS SUMMARY | 2024-10-02 12:22 | XMS_ITS | Encounter Summary ---
Author Organization [facility] Address [address] [place] [address] Phone Care Team Providers Care Stone Driller Helper Name Role Phone Parth Mcdonald MD Primary Care Provider [phone] Braydon Ford MD Unavailable Reyes Byrnes MD Unavailable [phone] Shayan Garcia APRN, CNP Unavailable [phone] Reason for Visit * Reason Comments Medication Refill Encounter Details Date Type Department Care Team (Late st Contact Info) Description 01/04/2023 Refill [facility] - Family Medicine - [place] [address] [place] [address] Parth Mcdonald MD #[address] [address] Medication Refill Social History Tobacco Use Types [...] suspected to have Coronavirus/COVID-19? No / Unsure 12/19/2022 10:55 AM CDT documented as of this encounter Miscellaneous Notes * Telephone Encounter - Debi Martin RN - 01/04/2023 11:29 AM CDT Medication failed the protocol, provider to review and approve the medication order if appropriate. Requested Prescriptions Pending Prescriptions Disp Refills busPIRone (BUSPAR) 15 MG Tablet [Pharmacy Med Name: BUSPIRONE HCL 15 MG TABLET] 180 Tablet 0 Sig: TAKE 1 TABLET BY MOUTH TWICE A DAY Buspirone (6 Month Refill Only) Protocol Failed - 01/04/2023 3:39 AM Failed - Has an encounter in the past 6 months with a depression or anxiety visit diagnosis Passed - Visit with relevant provider in past 6 months or upcoming 90 days Recent Visits No visits were found meeting these conditions. Showing recent visits within past 182 days and meeting all other requirements Future Appointments Date Type Provider Dept 02/07/23 Appointment Parth Mcdonald MD [facility] Showing future appointments within next 90 days and meeting all other requirements Passed - Patient has established therapy with Buspirone for at least 6 months documented in this encounter Plan of Treatment Upcoming Encounters Date Type Department Care Team (Late st Contact Info) Description 12/31/2024 10:15 AM CDT Office Visit [facility] - Family Medicine [facility] [address] [place] [address] Parth Mcdonald MD #2 [facility] [place] [address] 01/20/2025 1:00 PM CDT Office Visit [facility] #[address] [place] [address] Shayan Garcia, ENGRAVINGS POLISHER, FIRE INVESTIGATION MANAGER [address] [place] [address] 03/10/2025 10:00 AM CDT Office Visit [facility] - Pulmonology & Sleep Medicine [facility] #[address] [place] [address] Braydon Ford MD [address] [place] [address] documented as of this encounter Visit Diagnoses Not on filedocumented in this encounter Additional Health Concerns Assessment Noted Time PHQ-9 Depression Total Score: 0 07/07/20 21 11:00 AM CDT documented as of this encounter Care Teams Stone Driller Helper Relationship Specialty Start Date End Date Parth Mcdonald MD #[address] [address] PCP - General Family Medicine 07/08/15 Braydon Ford MD [address] [place] [phone] Consulting Physician Pulmonary Disease 07/23/17 Reyes Byrnes MD [address] [facility] [address] [facility] 10 [place] [address] Orthopaedic Surgery 07/23/17 Shayan Garcia APRN, FIRE INVESTIGATION MANAGER [address] [place] [address] Nurse Practitioner Advanced Practice Nurse 03/03/24 documented as of this encounter
--- OUTSIDE RECORDS SUMMARY | 2024-10-02 12:23 | XMS_ITS | Encounter Summary ---
Author Organization [facility] Address [address] [facility] [place] [address] Care Team Providers Care Glove Cuffer Name Role Phone Unavailable Primary Care Provider Unavailabl e Encounter Details Date Type Department Care Team (Late st Contact Info) Description 02/02/2020 Lab Requisition [facility] MICROBIOLOGY [address] [place] [address] Evan Denney MD Cough Social History Tobacco Use Types Packs/Day Years Used Date Smoking Tobacco: Never Assessed Sex and Gender Information Value Date Recorded Sex Assigned at Not on file Gender Identity Not on file Sexual Orientation Not on file documented as of this encounter Plan of Treatment Not on file documented as of this encounter Procedures Procedure Name Priority Date/Time Associated Diagnosis Comments SARS-COV-2 (COVID-19) IN HOUSE Routine 02/02/2020 3:45 PM CDT Cough documented in this encounter Results * SARS-COV-2 (COVID-19) IN HOUSE (02/02/2020 3:45 PM CDT) COVID-19 PCR Not detected Not detected, Invalid 02/03/2020 6:28 AM CDT [facility] Microbiology SPECIMEN FROM NASOPHARYNGEAL STRUCTURE / Unknown Collection / Unknown 02/02/2020 3:45 PM CDT 02/02/2020 6:54 PM CDT Narrative [facility] - 02/03/2020 6:28 AM CDT This Real Time RT-PCR assay was developed and its performance characteristics determined by [facility]. This test has been authorized by the Food and Drug administration (FDA)under an Emergency Use Authorization (EUA). This test has been validated in accordance with the FDA's guidance document Policy for Diagnostic Testing in Laboratories Certified to perform High Complexity Testing under CLIA prior to Emergency Use Authorization for Coronavirus Disease-2019 during the Public Health Emergency issued on November 01, 2019. FDA independent review of this validation is pending. This test is only authorized for the duration of time the declaration that circumstances exist justifying the authorization of emergency use of in vitro diagnostic tests for detection of SARS-CoV-2 virus and/or diagnosis of COVID-19 infection under section 564(b)(1) of the Act, 21 U.S.C 360bbb-3 (b)(1), unless the authorization is terminated or revoked sooner. Evan Denney MD LAB - MICROBIOLOGY ORDERABLES [facility] [address] [place] [address], [facility] [phone] documented in this encounter Visit Diagnoses Diagnosis Cough documented in this encounter Additional Health Concerns Infection Onset Date Last Indicated Resolved Time COVID-19 Under Investigation 02/02/2020 02/02/2020 02/03/2020 6:28 AM CDT documented as of this encounter
--- OUTSIDE RECORDS SUMMARY | 2024-10-02 12:23 | XMS_ITS | Clinical Summary ---
Author Organization [facility] Address [address] [place] [address] Care Team Providers Care Clinical Transplant Coordinator Name Role Phone Unavailable Primary Care Provider Unavailabl e Source Comments [facility],non-owned Affiliates and Associated Physician Practices is amultiple site organization consisting of ambulatory clinics and hospital sitesin [place], [place], [place] and [place]. This disclosure is being madepursuant to the Care Everywhere program and may not contain all information available regarding this patient. Last updated 18.[facility] Sprout Social History Tobacco Use Types Packs/Day Years Used Date Smoking Tobacco: Never Assessed Sex and Gender Information Value Date Recorded Sex Assigned at Not on file Gender Identity Not on file Sexual Orientation Not on file Plan of Treatment Health Maintenance Due Date Last Done Comments BONE DENSITY TESTING 1955 COLOGUARD (AGES 45-75) - COL ON CA SCREENING 1955 COLON MONITORING 1953 COLONOSCOPY - COLON CA SCREENING 1953 CT COLONOGRAPHY - COLON CA SCREENING 1955 Colorectal Cancer Screening 1955 FIT - COLON CA SCREENING 1953 FLEX SIG - COLON CA SCREENING 1953 LIPID TESTING 1955 MAMMOGRAM 1955 MEDICARE AWV ? 12 MONTHS 1953 HEPATITIS C SCREENING 12/30/1970 DTAP/TDAP/TD VACCINES (1 - Tdap) 01/04/1972 PNEUMOCOCCAL VACCINE 50+ (1 of 1 - PCV) 2003 ZOSTER VACCINE (1 of 2) 2003 COVID-19 VACCINE ( - 2023-2 5 season) 2024 INFLUENZA VACCINE (#1) 2024 DEPRESSION SCREENING 09/03/2024 Respiratory Syncytial Virus (RSV) Vaccine Pt: or over 60 yrs (1 - 1-dose 75+ series) 01/04/2028 HEPATITIS B VACCINE Aged Out No longe r eligible based on patient's age to complete this topic HIB VACCINE Aged Out No longer eligi ble based on patient's age to complete this topic HPV VACCINE Aged Out No longer eligi ble based on patient's age to complete this topic MENINGOCOCCAL (Group B) VACCINE Aged Out No longer eligible based on patient's age to complete this topic MENINGOCOCCAL VACCINE Aged Out No payam anthony eligible based on patient's age to complete this topic
--- OUTSIDE RECORDS SUMMARY | 2024-10-02 12:23 | XMS_ITS | Referral Summary ---
Author Organization [facility] Address [address] [place] [address] Care Team Providers Care Visual Effects Artist Name Role Phone Unavailable Primary Care Provider Unavailabl e Source Comments [facility],non-owned Affiliates and Associated Physician Practices is amultiple site organization consisting of ambulatory clinics and hospital sitesin [place], [place], [place] and [place]. This disclosure is being madepursuant to the Care Everywhere program and may not contain all information available regarding this patient. Last updated 18.[facility] Social History Tobacco Use Types Packs/Day Years Used Date Smoking Tobacco: Never Assessed Sex and Gender Information Value Date Recorded Sex Assigned at Not on file Gender Identity Not on file Sexual Orientation Not on file Plan of Treatment Not on file
--- OUTSIDE RECORDS SUMMARY | 2024-10-02 12:23 | XMS_ITS | Clinical Summary ---
Author Organization [facility] Address [address] [place] [address] Care Team Providers Care Building Energy Consultant Name Role Phone Parth Mcdonald MD Primary Care Provider [phone] Allergies Active Allergy Reactions Criticality Noted Date Comments Garrett Inhibitors Cough Reaction: cough, Bupropion Itching Reaction: itch, Ciprofloxacin Unknown 12/29/2015 Nickel Rash High 08/19/2015 Medications albuterol HFA (PROVENTIL HFA,VENTOLIN HFA,PROAIR HFA) 90 mcg/actuation inhaler Inhale. 7 Active aspirin 81 mg chewable tablet Take 1 tablet (81 mg total) by mouth daily Active citalopram (CeleXA) 40 mg tablet 8 Active metFORMIN (GLUCOPHAGE) 500 mg tablet Take 1 tablet (500 mg total) by mouth 2 (two) times a day with meals 0 Active Breo Ellipta 100-25 mcg/dose diskus inhaler INHALE 1 PUFF BY MOUTH DAILY 1 Active busPIRone (BUSPAR) 15 mg tabletIndicatio ns:Generalized Anxiety Disorder Take 1 tablet (15 mg total) by mouth 2 (two) times a day Active rOPINIRole (REQUIP) 3 mg tablet Take 1 tablet (3 mg total) by mouth nightly 2 Active rosuvastatin (CRESTOR) 20 mg tablet Take 1 tablet (20 mg total) by mouth nightly [address] (NexIUM) 40 mg capsule Take 1 capsule (40 mg total) by mouth daily before breakfast 4 Active loa-W5-[id number]-zi df-qyi-zlxg-bor 600 mg calcium- 800 unit-50 mg tablet Take by mouth Active solifenacin (VESIcare) 10 mg tablet Take 1 tablet (10 mg total) by mouth daily 4 Active alendronate (FOSAMAX) 70 mg tablet Take 1 tablet (70 mg total) by mouth every 7 days Patient takes Alendronate on Tuesdays. Take in the morning with a full glass of water, on an empty stomach, and do not take anything else by mouth or lie down for the next 30 min. Active amLODIPine (NORVASC) 5 mg tablet Take 1 tablet (5 mg total) by mouth daily 30 tablet 4 Active clopidogreL (PLAVIX) 75 mg tabletIndicatio ns:myocardial infarction prevention Take 1 tablet (75 mg total) by mouth daily 30 tablet 4 Active metoprolol XL (TOPROL-XL) 50 mg extended release tablet Take 1 tablet (50 mg total) by mouth daily 30 tablet 4 Active dicyclomine (BENTYL) 10 mg capsule TAKE 1 CAPSULE (10 MG TOTAL) BY MOUTH 3 TIMES A DAY NEEDED FOR ABDOMINAL CRAMPING 270 capsule 1 4 Active losartan (COZAAR) 50 mg tablet Take 1 tablet (50 mg total) by mouth daily 4 Active Active Problems Problem Noted Date Diagnosed Date NSTEMI (non-ST elevated myocardial infarction) ( [facility]) 06/23/2024 Abdominal pain 04/20/2024 Assessment & Plan (04/20/2024 2:44 PM CDT): Started 10/2023 when she was diagnosed with ischemic colitis. Could be from residual inflammation or just hypersensitivity of colon after injury. Plan Will schedule for colonoscopy to evaluate for colitis Trial of Bentyl Keep food diary and avoid trigger foods Encounter for screening colonoscopy 04/18/2024 Ischemic colitis 04/18/2024 Personal history of colonic polyps 04/18/2024 Colitis 10/06/2023 Assessment & Plan (04/20/2024 2:39 PM CDT): Hospitalized for bloody diarrhea and pain 10/2023, colonoscopy showed discontinuous areas of ulcerated mucosa in the left colon with bx c/w ischemic colitis. was treated with abx Still having abdominal pain, bleeding resolved, diarrhea better with average 1-2 times a day ranging from solid to loose. Pain triggered by high fiber foods Sister and father with colon cancer No NSAID or AC use No smoking, ETOH or illicit drug use Labs reviewed from 10/2023 and 11/2023, hgb improved from 10.2 to 11.7, CMP and iron studies normal Plan Will schedule colonoscopy to check for colitis healing Avoid NSAIDs Assessment & Plan (10/10/2023 12:52 PM DIRECTOR OF MATH): Patient with diffuse colitis who presents with abdominal pain, and lower GI bleeding. Differential includes inflammatory, ischemic, infectious. CT A/P w/ findings of colitis, mild-mod stenosis of prox celiac and superior mesenteric arteries, atherosclerotic disease; hiatal hernia. Surgery evaluated patient and recommended medical management. No brbpr - GI consulted: c/f ischemic colitis due to low flow from atherosclerosis without complete occlusion. C-scope 10/09- Discontinuous areas of ulcerated mucosa in the left colon. Waiting pathology -- Waiting GI recs regarding starting ASA81 mg. - S/p zosyn - trend hgb; b/l 12. 10 on admit. Now is 9.9 (stable) - pain control and antiemetics - PPI - stool culture negative for Salmonella spp, Shigella spp., E.coli O157, Edwardsiella spp., and Plesiomonas spp. Acute blood loss anemia 10/06/2023 Assessment & Plan (10/10/2023 12:51 PM DIRECTOR OF MATH): 2/2 GI blood loss. No more brbpr nor clots. - trend. Today Hgb is 9.9 - transfuse if < 7 or becomes symptomatic PAD (peripheral artery disease) 03/14/2023 Discoloration of skin of toe 02/07/2023 Leg pain, bilateral 02/07/2023 Urinary incontinence 02/07/2023 Assessment & Plan (10/06/2023 9:10 AM DIRECTOR OF MATH): Continue home Myrbetriq Wheezing 02/07/2023 Chronic narcotic use 11/29/2020 Depression 11/29/2020 Abnormal x-ray of lumbar spine 11/08/2020 Lumbar spondylosis 11/08/2020 Lumbar back pain 10/26/2020 Insomnia 05/17/2020 Neoplasm 04/13/2020 Osteoarthritis of knee 04/13/2020 Pain in limb 04/13/2020 Radiotherapy follow-up 04/13/2020 History of coronary artery stent placement 02/11 Coronary artery disease with unstable angina pec toris 02/02/2020 Pure hypercholesterolemia 02/02/2020 Unstable angina ([facility]) 02/02/2020 Centrilobular emphysema 12/30/2019 Ex-smoker 12/25/2019 Obesity (BMI 30-39.9) 09/16/2019 Type 2 diabetes mellitus treated without insulin ([facility]) 09/16/2019 Restless legs syndrome (RLS) 03/17/2019 Environmental allergies 03/11/2019 Encounter for screening mammogram for breast can cer 10/02/2018 Postprandial diarrhea 06/25/2018 Postprandial bloating 06/10/2018 WI, old 10/05/2017 Anxiety 07/23/2017 Assessment & Plan (10/06/2023 9:10 AM DIRECTOR OF MATH): Continue home Buspirone Gastroesophageal reflux disease 10/17/2016 KELIN (obstructive sleep apnea) 10/04/2016 Assessment & Plan (10/06/2023 9:09 AM DIRECTOR OF MATH): CPAP at 5 Ropinirole for RLS Lung nodule 06/15/2016 Pulmonary hypertension 06/15/2016 SOB (shortness of breath) 06/15/2016 Diabetes mellitus type 2, diet-controlled 2015 Assessment & Plan (10/06/2023 9:09 AM DIRECTOR OF MATH): Hold home metformin SSI Coronary artery disease invo lving coronary bypass graft of [place]ack heart without angina pectoris 03/17/2014 Overview (12/07/2016): COR ATH BYPASS GRAFT NOS Assessment & Plan (10/10/2023 12:53 PM DIRECTOR OF MATH): Hold Aspirin for now - continue Metoprolol, statin - Waiting GI recs regarding restarting ASA 81 mg. Impaired fasting glucose 01/17/2014 Overview (12/07/2016): IMPAIRED FASTING GLUCOSE Multiple-type hyperlipidemia 01/17/2014 Overview (12/07/2016): MIXED HYPERLIPIDEMIA Benign hypertension 01/17/2014 Overview (12/08/2016): BENIGN HYPERTENSION Assessment & Plan (10/06/2023 9:08 AM DIRECTOR OF MATH): Metoprolol and Losartan Chronic obstructive pulmonary disease 01/17/2014 Overview (12/08/2016): CHR AIRWAY OBSTRUCT NEC Assessment & Plan (10/06/2023 9:09 AM DIRECTOR OF MATH): No evidence of acute exacerbation - continue albuterol and Breo Carcinoma of vulva (CMS/[facility]) 05/24/2012 Resolved Problems Problem Noted Date Diagnosed Date Resolved Date Hypokalemia 10/09/2023 10/10/2023 Assessment & Plan (10/09/2023 5:34 PM DIRECTOR OF MATH): Due to poor PO - IV KCL today Encounters Date Type Department Care Team Description 07/30/2024 11:30 AM DIRECTOR OF MATH Office Visit [facility] at [address] [place] [id number] Anna Dempsey NP Coronary artery disease involving coronary bypass graft of nooksack heart without angina pectoris (Primary Dx); Benign hypertension; Multiple-type hyperlipidemia; PAOD (peripheral arterial occlusive disease) (CMS/HCC) ([facility]) 07/04/2024 12:30 PM CDT - 07/04/2024 1:00 PM CDT Surgery [address] [address] Darrell Richard MD COLON REMOVAL SNARE 07/04/2024 12:10 PM CDT Anesthesia Event [address] [id number] Jose Guadalupe Montenegro MD Williams, Calvin E., MD 07/04/2024 10:22 AM CDT - 07/04/2024 1:51 PM CDT Hospital Encounter [address] [address] Darrell Richard MD Encounter for screening colonoscopy; Ischemic colitis (HCC); Personal history of colonic polyps; History of colonic polyps Discharge Disposition: Discharge to home or self care 07/04/2024 [place] [address] Darrell Richard MD from Last 3 Months Immunizations Name Administration Dates Next Due Influenza, Quadrivalent, Spl it, Preservative Free, Intramuscular 07/14/2021,05/17/2020,09/16/2019,06/25,05/14/2017 Influenza, Trivalent, IM (MDV) 06/23/2016,2013,09/03/2013 Influenza, Trivalent, Preser vative Free, Intramuscular 06/15/2015 Influenza, Unspecified 06/23/2016,06/18/2014,09/2013 Moderna Sars-cov-2 Bivalent Vaccine 50 Mcg/0.5 mL (12+ YRS)-Blue/Fall 10/10/2022 Pneumococcal Conjugate PCV 13 06/21/2020 Pneumococcal Polysaccharide PPV23 09/03/2009 Tdap 02/08/2010,08/23/2005 Surgical History Surgery Date Site/Laterality Comments HEART SURGERY Heart Surgery - (Added by TW Conv) [place] TOTAL ABDOMINAL HYSTERECT W/WO RMVL TUBE OVARY Hysterectomy - (Added by TW Conv) VULVA SURGERY Vulvar Surgery - (Added by TW Conv) COLONOSCOPY 10/04/2023 - 11/01/2023 COLONOSCOPY 07/04/2024 Medical History Medical History Date Comments Personal history of other di seases of the circulatory system History of cardiac disorder - (Added by TW Conv) Hypokalemia Hypertension Social History Tobacco Use Types Packs/Day Years Used Date Smoking Tobacco: Former Smokeless Tobacco: Never Tobacco Cessation:Counseling Given: Not Answered Alcohol Use Standard Drinks/Week Comments No 0 (1 standard drink = 0.6 oz pur e alcohol) [facility] Utilities Answer Date Recorded In the past 12 months has e [employer], gas, oil, or water [employer] threatened to shut off services in your home? No 06/24/2024 Social Connection and Isolat ion Panel [NHANES] Answer Date Recorded In a typical week, how many times do you talk on the phone with family, friends, or neighbors? More than three times a week 06/24/2024 How often do you get togethe r with friends or relatives? More than three times a week 06/24/2024 How often do you attend chur ch or congregation services? Never 06/24/2024 Do you belong to any clubs o r organizations such as adventism groups, unions, fraternal or athletic groups, or school groups? Yes 06/24/2024 How often do you attend meet ings of the clubs or organizations you belong to? More than 4 times per year 06/24/2024 Are you , , di vorced, , never , or living with a partner? 06/24/2024 AUDIT-C Answer Date Recorded Q1: How often do you have a drink containing alc ohol? Never 04/18/2024 Average Number of Drinks Not on file 024 Frequency of Binge Drinking Not on file 04/03 Overall Financial Resource Strain (CARDIA) Answe r Date Recorded How hard is it for you to pa y for the very basics like food, housing, medical care, and heating? Not hard at all 06/24/2024 Hunger Vital Sign Answer Date Recorded Within the past 12 months, y ou worried that your food would run out before you got the money to buy more. Never true 06/24/20 24 Within the past 12 months, t he food you bought just didn't last and you didn't have money to get more. Never true 06/24/2024 PRAPARE - Transportation Answer Date Re corded In the past 12 months, has l ack of transportation kept you from medical appointments or from getting medications? No 06/24/2024 Lack of Transportation (Non-Medical) Not on file 06/24/2024 Housing Stability Vital Sign Answer Ayush e Recorded In the last 12 months, was t here a time when you were not able to pay the mortgage or rent on time? No 06/24/2024 In the past 12 months, how m any times have you moved where you were living? 0 06/24/2024 At any time in the past 12 m [facility], were you homeless or living in a detention (including now)? No 06/24/2024 Personal Safety Answer Date Recorded Have you ever been in or are you currently in a harmful physical or emotional relationship or is someone making you feel afraid or unsafe? Denies 07/04/2024 Comments No Sex and Gender Information Value Date Recorded Sex Assigned at Not on file Legal Sex Female 11:20 AM DIRECTOR OF MATH Gender Identity Not on file Sexual Orientation Not on file Obstetrics History Para Term AB IAB SAB Ectopic Multiple Livin g Live Births 2 2 1 1 2 Date Outcome GA Total Labor Labor/2nd/3rd Weight Sex Type Anes PTL Lyndsey A1 A5 Name Clin Term Last Filed Vital Signs Vital Sign Reading Time Taken Comments Blood Pressure 149/83 07/30/2024 11:33 AM DIRECTOR OF MATH has not had medications yet today Pulse 58 07/30/2024 11:33 AM DIRECTOR OF MATH Temperature 36.8 ??C (98.2 ??F) 07/04/2024 1 :30 PM CDT Respiratory Rate 18 07/30/2024 11:3 3 AM DIRECTOR OF MATH Oxygen Saturation 92% 07/04/2024 1:3 0 PM CDT Inhaled Oxygen Concentration - - Weight 85.7 kg (189 lb) 07/30/2024 11:3 3 AM DIRECTOR OF MATH Height 165.1 cm (5' 5 ) 07/30/2024 11:3 3 AM DIRECTOR OF MATH Body Mass Index 31.45 07/30/2024 11:33 AM DIRECTOR OF MATH Plan of Treatment Health Maintenance Due Date Last Done Comments Albumin Creatinine Ratio, Urine 1955 Depression Screening 1955 Hepatitis C Screening 1955 Dilated Eye Exam 1955 Foot Exam 1955 Hepatitis B Screening 1971 Zoster Vaccine (1 of 2) 2003 Well Visit 65+ 2018 DTaP/Tdap/Td Vaccine (3 - Td or Tdap) 02/09/2020 02/08/2010, 08/23/2005 Pneumococcal vaccine 65+ (3 of 3 - PPSV23 or PCV20) 06/21/2021 06/21/2020, 09/03/2009 Hemoglobin A1C 04/04/2024 10/05/2023, 10/05/2023 Covid-19 Vaccine ( - 2023-2 5 season) 2024 10/10/2022, 11/06/2020, 10/09/2020 Osteoporosis Screening-Bone Density Scan 04/23/2025 04/23/2023, 04/23/2023 Breast Cancer Screening-Mammogram 05/15/2025 05/15/2024, 05/15/2024, 04/23/2023, Additional history exists Lipid Panel 05/22/2025 05/22/2024, 02/0 12/2023, 02/08/2023, Additional history exists Fall Risk Assessment 06/25/2025 06/25/2024 eGFR 06/25/2025 06/25/2024, 06/04, 06/23/2024, Additional history exists Colon Cancer Screening-Colonoscopy 07/04/2034 07/04/2024, 10/09/2023, 09/08/2016, Additional history exists Influenza Vaccine Completed 05/08/2024, , 05/17/2020, Additional history exists Colon Cancer Screening-CT Colonography Discontinued 07/04/2024, 10/09/2023, 09/08/2016, Additional history exists Colon Cancer Screening-DNA Stool Discontinued 07/04/2024, 10/09/2023, 09/08/2016, Additional history exists Colon Cancer Screening-FIT Discontinued 07/04, 10/09/2023, 09/08/2016, Additional history exists Colon Cancer Screening-Sigmoidoscopy Discontinued 07/04/2024, 10/09/2023, 09/08/2016, Additional history exists Medical Devices Implanted Type Area Tire Design Engineer Device Identifier Shelf Expiration Date Model / Serial / Lot GTx Angio-Seal Vip 6fr Closere Device [id number] - [id number] Implanted:Qty: 1 on 06/24/2024 by Samra Muñoz MD at [facility] GTx 11/04/2024 [id number] / / [id number] Procedures Procedure Name Priority Date/Time Associated Diagnosis Comments SURGICAL PATHOLOGY Routine 07/04/2024 2: 24 PM CDT COLON REMOVAL SNARE 07/04/2024 1 2:04 PM CDT Encounter for screening colonoscopy Ischemic colitis (HCC) Personal history of colonic polyps POCT GLUCOSE DEVICE Routine 07/04/2024 1 0:59 AM CDT COLONOSCOPY 07/04/2024 10:48 AM CDT EGFR Routine 06/25/2024 5:50 AM CDT LIPID PANEL Routine 10/07/2023 8:34 PM DIRECTOR OF MATH HEMOGLOBIN A1C STAT 10/05/2023 9:29 PM DIRECTOR OF MATH from Last 3 Months or Most Recently Relevant to Health Maintenance Results * Surgical pathology (07/04/2024 2:24 PM CDT) Colon, Biopsy 07/04/2024 2:2 4 PM CDT 07/04/2024 2:24 PM CDT Narrative 07/07/2024 12:32 PM DIRECTOR OF MATH EPIC results best viewed via link to PDF [facility] Department of Pathology [address] [place] [address] Note to Patients: This report may contain a detailed description of human tissue sent by a health care provider to the laboratory for pathologic evaluation. The content of this report is essential for diagnosis and may provide important critical findings. This information may be unfamiliar to patients to review without a medical professional present. It is advised that the patient review this report in the presence of a health care provider who can answer questions and explain the details. Final Report Patient Name: ??ORLIN STANLEY Address: ??[facility], ??[place], [place] ??[address]- Gender: ??F : ??1955 (Age: 69) Service: ??Gastro Location: ??[facility] Hospital #: ??[id number] Patient Type: ??[facility] Accession # [id number] Taken: ??07/04/2024 Received: ??07/04/2024 Accessioned: ??07/04/2024 Reported: ??07/07/2024 Physician(s):Darrell Richard MD Diagnosis: Colon, sigmoid, biopsies: ? - Tubular adenoma. ? - Hyperplastic polyp. ? - No evidence of high-grade dysplasia or malignancy. Jakob Hartley MD Report Electronically Reviewed and Signed Out By ??Jakob Hartley MD ??07/07/2024 12:32:12 Specimen(s) Received: A: Sigmoid polyp x 2 Microscopic Description: Microscopic examination shows two polypoid fragments of colonic mucosa, one of which shows adenomatous mucosal changes. ??The remaining fragment shows hyperplastic glandular changes without evidence of marked crypt dilation, lateral branching, or flattening of the crypt bases. ??The colonoscopy report is reviewed. ??The endoscopic impression of two sigmoid colon polyps is noted. ??The findings are consistent with a tubular adenoma and a hyperplastic polyp. ??There is no evidence of high-grade dysplasia or malignancy. Clinical History: Ischemic colitis. ??Personal history of colonic polyps. ??Screening colonoscopy. Gross Description: The specimen is submitted in a single formalin filled container labeled ORLIN FORSTING and sigmoid polyp x2 . ??It is 2 fragments of colby tissue between 5 and 7 mm. ??All in one cassette. Emilie Landaverde R.N., P.A./Jazmín Galvan M.D. REPORT IMAGES AND SCANNED DOCUMENTS, IF INCLUDED, ONLY VIEWABLE IN PDF VERSION OF REPORT The performance characteristics of some immunohistochemical stains, fluorescence in-situ hybridization tests and immunophenotyping by flow cytometry cited in this report (if any) were determined by the Surgical Pathology Department at [facility] as part of an ongoing water quality assistant program and in compliance with federally mandated regulations drawn from the Clinical Laboratory Improvement Act of 1988 (CLIA '88). ??Some of these tests rely on the use of analyte specific reagents and are subject to specific labeling requirements by the US Food and Drug Administration. ??Such diagnostic tests may only be performed in a facility that is certified by the Department of Health and Human Services as a high complexity laboratory under CLIA '88. The FDA has determined that such clearance or approval is not necessary. ??This test is used for clinical purposes. ??It should not be regarded as investigational or for research. ??Nevertheless, federal rules concerning the medical use of analyte specific reagents require that the following disclaimer be attached to the report: This test was developed and its performance characteristics determined by the Surgical Pathology Department [facility]. ??It has not been cleared or approved by the U. S. Food and Drug Administration. Note for decalcified specimens: This assay has not been validated on decalcified tissues. Results should be interpreted with caution given the possibility of false negativity on decalcified specimens us Darrell Richard MD LAB PATHOLOGY ORDERABLES Final R esult * POCT glucose (07/04/2024 10:59 AM CDT) Glucose, POC 85 70 - 199 mg/dL Blood 07/04/2024 10:5 9 AM CDT 07/04/2024 10:59 AM CDT Darrell Richard MD LAB POCT ORDERABLES - DEVICE Fin al Result Performing Organization Address City/State/[facility] Co de Phone Number [address] Department of Laboratories [place] [phone] * Colonoscopy (07/04/2024 10:48 AM CDT) Anatomical Region Laterality Modality Other Narrative Procedure Note Darrell Richard MD - 07/04/2024 10:48 AM CDT [facility] Patient Name: Orlin Forsting Procedure Date: 07/04/2024 10:48 AM Date of : 1955 Admit Type: Outpatient Age: 69 Gender: Female Attending MD: Darrell Richard M.D. Room: [facility] ENDOSCOPY ROOM 3 Note Status: Finalized Patient Profile: This is a 69 year old female with h/o CAD, HLD,HTN, COPD, DM here for colonoscopy to evaluate for abdominal pain and follow up on previously noted ischemic colitis. Hospitalized for bloody diarrheaand pain 10/2023, colonoscopy showed discontinuous areasof ulcerated mucosa in the left colon with bx c/w ischemic colitis and was treated with abx. Still having intermittent diarrhea after eating highfiber foods, overall doing much better. No bleeding or abdominal pain. Sister and father with coloncancer. No NSAID or AC use. CTA A/P from 06/2024 showed no acute GI findings. Procedure: Colonoscopy Indications: Follow-up of acute ischemic colitis Referring MD: Parth Mcdonald M.D. Providers: Darrell Richard M.D. Impression: - Tortuous left colon. - Two 3 to 4 mm polyps in the sigmoid colon,removed with a cold snare. Resected and retrieved. - Diverticulosis in the sigmoid colon. - External and internal hemorrhoids. - No residual evidence of colitis. Recommendation: - Patient has a contact number available for emergencies. The signs and symptoms of potential delayed complications were discussed with thepatient. Return to normal activities tomorrow. Written discharge instructions were provided to thepatient. - Discharge patient to home (with escort). - Resume previous diet. - Continue present medications. - Await pathology results. - Repeat colonoscopy in 3 years for surveillancebased on pathology results. - Return to referring physician as previously scheduled. Medicines: Monitored Anesthesia Care Complications: No immediate complications. Estimated Blood Loss: Estimated blood loss was minimal. Procedure: Pre-Anesthesia Assessment: - Prior to the procedure, a History and Physicalwas performed, and patient medications and allergieswere reviewed. The patient is competent. The risks and benefits of the procedure and the sedation optionsand risks were discussed with the patient. Allquestions were answered and informed consent was obtained. Patient identification and proposed procedure were verified by the physician, the driver engineer and the weed science research technician in the endoscopy suite. Mental Status Examination: normal. Prophylactic Antibiotics: The patient does not require prophylactic antibiotics. Prior Anticoagulants: The patient has taken no anticoagulant or antiplatelet agents. Afterreviewing the risks and benefits, the patient was deemed in satisfactory condition to undergo the procedure.The anesthesia plan was to use monitored anesthesiacare (MAC). Immediately prior to administration of medications, the patient was re-assessed foradequacy to receive sedatives. The heart rate, respiratory rate, oxygen saturations, blood pressure, adequacyof pulmonary ventilation, and response to care were monitored throughout the procedure. The physical status of the patient was re-assessed after the procedure. The benefits, risks and alternatives of theprocedure and sedation were discussed and informed consentwas obtained. All questions were answered. Please referto the signed informed consent document in the medical record. The bowel preparation used was Miralax and bisacodyl tablets via split dose instruction. The scope was passed under direct vision. The Pediatric Colonoscope [id number]-[id number] was introducedthrough the anus and advanced to the the cecum, identifiedby appendiceal orifice and ileocecal valve. The colonoscopy was somewhat difficult due to atortuous colon. Successful completion of the procedure was aided by changing the patient to a supine positionand using manual pressure. The patient tolerated the procedure well. The quality of the bowelpreparation was excellent. Bowel prep was administered using a split dose. Findings: The perianal and digital rectal examinations were normal. The left colon was tortuous due to diverticulosis. Advancing thescope required changing the patient to a supine position and using manual pressure. Two flat and sessile polyps were found in the sigmoid colon. Thepolyps were 3 to 4 mm in size. These polyps were removed with a cold snare. Resection and retrieval were complete. Multiple small and large-mouthed diverticula were found in thesigmoid colon. External and internal hemorrhoids were found during retroflexion. Darrell Richard M.D. 07/04/2024 1:00:39 PM Number of Addenda: 0 Note Initiated On: 07/04/2024 10:48 AM Procedure Code(s): --- Professional --- 98557, Colonoscopy, flexible; with removal of tumor(s), polyp(s), or other lesion(s) by snare technique --- Technical --- 77572, Colonoscopy, flexible; with removal of tumor(s), polyp(s), or other lesion(s) by snare technique Diagnosis Code(s): --- Professional --- D12.5, Benign neoplasm of sigmoid colon K64.8, Other hemorrhoids K55.039, Acute (reversible) ischemia of large intestine, extent unspecified K57.30, Diverticulosis of large intestine without perforation orabscess without bleeding Q43.8, Other specified congenital malformations of intestine --- Technical --- D12.5, Benign neoplasm of sigmoid colon K64.8, Other hemorrhoids K55.039, Acute (reversible) ischemia of large intestine, extent unspecified K57.30, Diverticulosis of large intestine without perforation orabscess without bleeding Q43.8, Other specified congenital malformations of intestine CPT copyright 2020 [employer]. All rights reserved. The codes documented in this report are preliminary and upon durability engineer reviewmay be revised to meet current compliance requirements. Recognized by the [employer] for promoting quality in endoscopy us Darrell Richard MD ENDOSCOPY PROCEDURES Final Resul t * eGFR (06/25/2024 5:50 AM CDT) eGFR 81 >=60 mL/min/1. 73 m2 Comment: Interpretive Data Reference Interval Normal ?>/= 90 mL/min/1.73m2 Mildly decreased* ? 60 - 89 mL/min/1.73m2 Mildly to moderately decreased ?45 - 59 mL/min/1.73m2 Moderately to severely decreased ??30 - 44 mL/min/1.73m2 Severely decreased ?15 - 29 mL/min/1.73m2 Kidney Failure ?< 15 ??mL/min/1.73m2 *Relative to young adult level Estimated glomerular filtration rate is determined by the 2020 CKD-EPI equation recommended by the National Kidney Foundation (A Unifying Approach to GFR Estimation: Recommendations of the NKF-ASK Task Force on Reassessing the Inclusion of Race in Diagnosing Kidney Disease, JASN 2020). The CKD-EPI equation should not be used for patients with unstable renal function and has not been validated in children and those over 70. Current interpretive data was last reviewed 2021. Blood 06/25/2024 5:50 AM CDT 06/25/2024 6:01 AM CDT us Renetta Jack MD LAB BLOOD ORDERABLES F inal Result KATIE [facility] 1 [facility] Department of Laboratories [place], [place] [id number] * Lipid panel (10/07/2023 8:34 PM DIRECTOR OF MATH) Cholesterol 109 30 - 199 mg/dL KATIE HOYT Comment: Interpretive Data Ages < or = 19 years ??Acceptable: ? <170 mg/dL ??Borderline high: ??170-199 mg/dL ??High: ? >or= 200 mg/dL Ages > or = 20 years ??Desirable: ?<200 mg/dL ??Borderline high: ??200-239 mg/dL ??High: ? >or= 240 mg/dL Literature References: 1. Expert Panel on Integrated Guidelines for Cardiovascular Health and Risk Reduction in Children and Adolescents. Pediatrics 2011;128:S213 2. NCEP Expert Panel. Circulation 2004;110:227 Current Interpretive Data was last revised on 2018. Triglycerides 126 <=149 mg/dL KATIE HOYT Comment: Interpretive Data Ages < or = 9 years ??Acceptable: ? <75 mg/dL ??Borderline high: ??75-99 mg/dL ??High: ? >or= 100 mg/dL Ages 10 to 20 years ??Acceptable: ? <90 mg/dL ??Borderline high: ??90-129 mg/dL ??High: ? >or= 130 mg/dL Ages > or = 20 years ??Desirable: ?<150 mg/dL ??Borderline high: ??150-199 mg/dL ??High: ? 200-499 mg/dL ?Very high: ?? >or= 499 mg/dL Literature References: 1. Expert Panel on Integrated Guidelines for Cardiovascular Health and Risk Reduction in Children and Adolescents. Pediatrics 2011;128:S213 2. NCEP Expert Panel. Circulation 2004;110:227 Current Interpretive Data was last revised on 2018. HDL 48 >=40 mg/dL [facility] Comment: Interpretive Data Ages < or = 19 years ??Acceptable: ? >45 mg/dL ??Borderline low: ?? 40-45 mg/dL ??Low: ? <40 mg/dL Ages > or = 20 years ??Desirable: ?>or= 60 mg/dL ??Low: ? <40 mg/dL Literature References: 1. Expert Panel on Integrated Guidelines for Cardiovascular Health and Risk Reduction in Children and Adolescents. Pediatrics 2011;128:S213 2. NCEP Expert Panel. Circulation 2004;110:227 Current Interpretive Data was last revised on 2018. LDL, calculated 36 <=129 mg/dL [facility] Comment: Interpretive Data Ages < or = 19 years ??Acceptable: ? <110 mg/dL ??Borderline high: ??110-129 mg/dL ??High: ?>or= 130 mg/dL Ages > or = 20 years ??Optimal: ? <100 mg/dL ??Near optimal: ?100-129 mg/dL ??Borderline high: ?? 130-159 mg/dL ??High: ?>160 mg/dL Literature References: 1. Expert Panel on Integrated Guidelines for Cardiovascular Health and Risk Reduction in Children and Adolescents. Pediatrics 2011;128:S213 2. NCEP Expert Panel. Circulation 2004;110:227 Current Interpretive Data was last revised on 2018. Non-HDL Cholesterol 61 mg/dL KATIE HOYT Comment: Interpretive Data Ages < or = 19 years ??Acceptable: ?<120 mg/dL ??Borderline high: ??120-144 mg/dL ??High: ?>145 mg/dL Ages > or = 20 years ??When triglycerides are >200 mg/dL, Non-HDL cholesterol is a secondary target of ? therapy with treatment goals that are 30 mg/dL greater than the LDL cholesterol target. ? Literature References: 1. Expert Panel on Integrated Guidelines for Cardiovascular Health and Risk Reduction in Children and Adolescents. Pediatrics 2011;128:S213 2. NCEP Expert Panel. Circulation 2004;110:227 Current Interpretive Data was last revised on 2018. Chol/HDL ratio 2 KATIE [facility] Blood 10/07/2023 8:34 PM DIRECTOR OF MATH 10/07/2023 9:01 PM DIRECTOR OF MATH Eduardo Quiroz MD LAB BLOOD ORDERABLES Final Result [facility] Department [place] [address] * (ABNORMAL) Hemoglobin A1c (10/05/2023 9:29 PM DIRECTOR OF MATH) Hgb A1C 6.5(H) 4.0 - 5.6 % KATIE HOYT Estimated Average Glucose 140 mg/dL KATIE HOYT Comment: The ADA recommends reporting an estimated Average Glucose (eAG) with all Hemoglobin A1c results using the equation derived from a study of 507 normal and diabetic adults. ??Minority populations were underrepresented and children were not included. ?? (Diabetes Care 2020; 43(S1): S66-S76). ??The eAG is not equivalent to a fasting glucose. Blood 10/05/2023 9:29 PM DIRECTOR OF MATH 10/05/2023 9:48 PM DIRECTOR OF MATH Haylee Lee MD LAB BLOOD ORDERABLES Final Resul t [facility] Department [place] [address] from Last 3 Months or Most Recently Relevant to Health Maintenance Insurance T MEDICARE [employer] MEDICARE Advance Directives For more information, please contact: [phone] * Full Code (Latest Code Status on File) Date Activated Date Inactivated Comments 07/04/2024 10:38 AM 07/04/2024 5:51 PM * Full Code Date Activated Date Inactivated Comments 07/04/2024 10:38 AM 07/04/2024 10:38 AM * Full Code Date Activated Date Inactivated Comments 06/23/2024 1:13 PM 06/25/2024 6:57 PM * Full Code Date Activated Date Inactivated Comments 10/09/2023 2:21 PM 10/10/2023 9:57 PM * Full Code Date Activated Date Inactivated Comments 10/06/2023 12:19 PM 10/09/2023 2:21 PM Care Teams Building Energy Consultant Relationship Specialty Start Date End Date Parth Mcdonald MD [address] [address] PCP - General Family Medicine 05/13/18
--- OUTSIDE RECORDS SUMMARY | 2024-10-02 12:23 | XMS_ITS | Referral Summary ---
Author Organization [facility] Address [address] [place] [address] Care Team Providers Care Netbackup Admin Name Role Phone Parth Mcdonald MD Primary Care Provider [phone] Encounters Date Type Department Care Team Description 07/30/2024 11:30 AM FUNCTIONAL TESTER Office Visit [place] [employer] Waitress at [address] [place] [id number] Anna Dempsey NP Coronary artery disease involving coronary bypass graft of [place] heart without angina pectoris (Primary Dx); Benign hypertension; Multiple-type hyperlipidemia; PAOD (peripheral arterial occlusive disease) (CMS/HCC) (HCC) 07/04/2024 Orders Only [address] [address] Darrell Richard MD 07/04/2024 12:30 PM CDT - 07/04/2024 1:00 PM CDT Surgery [address] [address] Darrell Richard MD COLON REMOVAL SNARE 07/04/2024 12:10 PM CDT Anesthesia Event [address] [address] Jose Guadalupe Montenegro MD Williams, Calvin E., MD 07/04/2024 10:22 AM CDT - 07/04/2024 1:51 PM CDT Hospital Encounter [address] [address] Darrell Richard MD Encounter for screening colonoscopy; Ischemic colitis (HCC); Personal history of colonic polyps; History of colonic polyps Discharge Disposition: Discharge to home or self care from Last 3 Months Allergies Active Allergy Reactions Criticality Noted Date [...] by mouth daily before breakfast 4 Active [id number] 600 mg calcium- 800 unit-50 mg tablet [...] Date NSTEMI (non-ST elevated myocardial infarction) ( [facility]) 06/23/2024 Abdominal pain 04/20/2024 Assessment & Plan [...] NSAIDs Assessment & Plan (10/10/2023 12:52 PM FUNCTIONAL TESTER): Patient with diffuse colitis who presents with abdominal pain, and lower GI bleeding. Differential includes inflammatory, ischemic, infectious. CT A/P w/ findings of colitis, mild-mod stenosis of prox celiac and superior mesenteric arteries, atherosclerotic disease; hiatal hernia. Surgery evaluated patient and recommended medical management. No brbpr - GI consulted: c/f ischemic colitis due to low flow from atherosclerosis without complete occlusion. C-scope 2/6- Discontinuous areas of ulcerated mucosa in the [...] 10/06/2023 Assessment & Plan (10/10/2023 12:51 PM FUNCTIONAL TESTER): 2/2 GI blood loss. No more brbpr nor clots. - trend. Today Hgb is 9.9 - transfuse if < 7 or becomes symptomatic PAD (peripheral artery disease) 03/14/2023 Discoloration of skin of toe 02/07/2023 Leg pain, bilateral 02/07/2023 Urinary incontinence 02/07/2023 Assessment & Plan (10/06/2023 9:10 AM FUNCTIONAL TESTER): Continue home Myrbetriq Wheezing 02/07/2023 Chronic narcotic use 11/29/2020 Depression 11/29/2020 Abnormal x-ray of lumbar spine 11/08/2020 Lumbar spondylosis 11/08/2020 Lumbar back pain 10/26/2020 Insomnia 05/17/2020 Neoplasm 04/13/2020 Osteoarthritis of knee 04/13/2020 Pain in limb 04/13/2020 Radiotherapy follow-up 04/13/2020 History of coronary artery stent placement 02/11 Coronary artery disease with unstable angina pec toris 02/02/2020 Pure hypercholesterolemia 02/02/2020 Unstable angina ([facility]/HCC) 02/02/2020 Centrilobular emphysema 12/30/2019 Ex-smoker 12/25/2019 Obesity (BMI 30-39.9) 09/16/2019 Type 2 diabetes mellitus treated without insulin ([facility]) 09/16/2019 Restless legs syndrome (RLS) 03/17/2019 Environmental allergies 03/11/2019 Encounter for screening mammogram for breast can cer 10/02/2018 Postprandial diarrhea 06/25/2018 Postprandial bloating 06/10/2018 MD, old 10/05/2017 Anxiety 07/23/2017 Assessment & Plan (10/06/2023 9:10 AM FUNCTIONAL TESTER): Continue home Buspirone Gastroesophageal reflux disease 10/17/2016 KELIN (obstructive sleep apnea) 10/04/2016 Assessment & Plan (10/06/2023 9:09 AM FUNCTIONAL TESTER): CPAP at 5 Ropinirole for RLS Lung nodule 06/15/2016 Pulmonary hypertension 06/15/2016 SOB (shortness of breath) 06/15/2016 Diabetes mellitus type 2, diet-controlled 2015 Assessment & Plan (10/06/2023 9:09 AM FUNCTIONAL TESTER): Hold home metformin SSI Coronary artery disease invo lving coronary bypass graft of [place] heart without angina pectoris 03/17/2014 Overview (12/07/2016): COR ATH BYPASS GRAFT NOS Assessment & Plan (10/10/2023 12:53 PM FUNCTIONAL TESTER): Hold Aspirin for now - continue Metoprolol, statin - Waiting GI recs regarding restarting ASA 81 mg. Impaired fasting glucose 01/17/2014 Overview (12/07/2016): IMPAIRED FASTING GLUCOSE Multiple-type hyperlipidemia 01/17/2014 Overview (12/07/2016): MIXED HYPERLIPIDEMIA Benign hypertension 01/17/2014 Overview (12/08/2016): BENIGN HYPERTENSION Assessment & Plan (10/06/2023 9:08 AM FUNCTIONAL TESTER): Metoprolol and Losartan Chronic obstructive pulmonary disease 01/17/2014 Overview (12/08/2016): CHR AIRWAY OBSTRUCT NEC Assessment & Plan (10/06/2023 9:09 AM FUNCTIONAL TESTER): No evidence of acute exacerbation - continue albuterol and Breo Carcinoma of vulva ([facility]) 05/24/2012 Resolved Problems Problem Noted Date Diagnosed Date Resolved Date Hypokalemia 10/09/2023 10/10/2023 Assessment & Plan (10/09/2023 5:34 PM FUNCTIONAL TESTER): Due to poor PO - IV KCL today Immunizations Name Administration Dates Next Due Influenza, Quadrivalent, Spl it, Preservative Free, Intramuscular 07/14/2021,05/17/2020,09/16/2019,06/25,05/14/2017 Influenza, Trivalent, IM (MDV) 06/23/2016,2013,09/03/2013 Influenza, Trivalent, Preser vative Free, Intramuscular 06/15/2015 Influenza, Unspecified 06/23/2016,06/18/2014,09/2013 Moderna Sars-cov-2 Bivalent Vaccine 50 Mcg/0.5 mL (12+ YRS)-Blue/Fall 10/10/2022 Pneumococcal Conjugate PCV 13 06/21/2020 Pneumococcal Polysaccharide PPV23 09/03/2009 Tdap 02/08/2010,08/23/2005 Social History Tobacco Use Types Packs/Day Years Used Date Smoking Tobacco: Former Smokeless Tobacco: Never Tobacco Cessation:Counseling Given: Not Answered Alcohol Use Standard Drinks/Week Comments No 0 (1 standard drink = 0.6 oz pur e alcohol) [facility] Utilities Answer Date Recorded In the past 12 months has [facility], oil, or water [employer] threatened to shut off services in your [...] week 06/24/2024 How often do you attend [facility] or scientology services? Never 06/24/2024 Do you belong to any clubs o r organizations such as uatsdin groups, unions, fraternal or athletic groups, or [...] any time in the past 12 [facility], were you homeless or living in a [...] on file Legal Sex Female 11:20 AM FUNCTIONAL TESTER Gender Identity Not on file Sexual Orientation Not on file Last Filed Vital Signs Vital Sign Reading Time Taken Comments Blood Pressure 149/83 07/30/2024 11:33 AM FUNCTIONAL TESTER has not had medications yet today Pulse 58 07/30/2024 11:33 AM FUNCTIONAL TESTER Temperature 36.8 ??C (98.2 ??F) 07/04/2024 1 :30 PM CDT Respiratory Rate 18 07/30/2024 11:3 3 AM FUNCTIONAL TESTER Oxygen Saturation 92% 07/04/2024 1:3 0 PM CDT Inhaled Oxygen Concentration - - Weight 85.7 kg (189 lb) 07/30/2024 11:3 3 AM FUNCTIONAL TESTER Height 165.1 cm (5' 5 ) 07/30/2024 11:3 3 AM FUNCTIONAL TESTER Body Mass Index 31.45 07/30/2024 11:33 AM FUNCTIONAL TESTER Plan of Treatment Not on file Medical Devices Implanted Type Area Water Pollution Scientist Device Identifier Shelf Expiration Date Model / Serial / Lot [employer] Angio-Seal Vip 6fr Closere Device [id number] - [id number] Implanted:Qty: 1 on 06/24/2024 by Samra Muñoz MD at [facility] [employer] 11/04/2024 [id number] / / [id number] Procedures Procedure Name Priority Date/Time Associated Diagnosis Comments SURGICAL PATHOLOGY Routine 07/04/2024 2: 24 PM CDT COLON REMOVAL SNARE 07/04/2024 1 2:04 PM CDT Encounter for screening colonoscopy Ischemic colitis (HCC) Personal history of colonic polyps POCT GLUCOSE DEVICE Routine 07/04/2024 1 0:59 AM CDT COLONOSCOPY 07/04/2024 10:48 AM CDT EGFR Routine 06/25/2024 5:50 AM CDT LIPID PANEL Routine 10/07/2023 8:34 PM FUNCTIONAL TESTER HEMOGLOBIN A1C STAT 10/05/2023 9:29 PM FUNCTIONAL TESTER from Last 3 Months or Most Recently Relevant to Health Maintenance Results * Surgical pathology (07/04/2024 2:24 PM CDT) Colon, Biopsy 07/04/2024 2:2 4 PM CDT 07/04/2024 2:24 PM CDT Narrative 07/07/2024 12:32 PM FUNCTIONAL TESTER EPIC results best viewed via link to PDF [facility] Department of Pathology [address] [place] [address] Note to Patients: This report may contain [...] explain the details. Final Report Patient Name: ??LIZETHORLIN Address: ??[address] [place] [address], ??[place], [place] ??[address]- Gender: ??F : ??1955 (Age: 69) Service: ??Gastro Location: ??[facility] Hospital #: ??[id number] Patient Type: ??[facility] Accession # ?[id number] Taken: ??07/04/2024 Received: ??07/04/2024 Accessioned: ??07/04/2024 Reported: ??07/07/2024 Physician(s):Darrell Richard MD Diagnosis: Colon, sigmoid, biopsies: ? - Tubular adenoma. ? - Hyperplastic polyp. ? - No evidence of high-grade dysplasia or malignancy. Jakob Hartley MD Report Electronically Reviewed and Signed Out By ??Jaokb Hartley MD ??07/07/2024 12:32:12 Specimen(s) Received: A: [...] ??All in one cassette. Emilie Landaverde R.N., P.Francisco J./Jazmín Galvan M.D. REPORT IMAGES AND SCANNED DOCUMENTS, IF INCLUDED, ONLY VIEWABLE IN PDF VERSION OF REPORT The performance characteristics of some immunohistochemical stains, fluorescence in-situ hybridization tests and immunophenotyping by flow cytometry cited in this report (if any) were determined by the Surgical Pathology Department at [facility] as part of an ongoing vendor quality supervisor program and in compliance with federally mandated [...] characteristics determined by the Surgical Pathology Department [facility]. ??It has not been cleared or approved by the U. S. Food and Drug Administration. Note for decalcified specimens: This assay has not been validated on decalcified tissues. Results should be interpreted with caution given the possibility of false negativity on decalcified specimens Darrell Richard MD LAB PATHOLOGY ORDERABLES Final R esult * POCT glucose (07/04/2024 10:59 AM CDT) Glucose, POC 85 70 - 199 mg/dL Blood 07/04/2024 10:5 9 AM CDT 07/04/2024 10:59 AM CDT Darrell Richard MD LAB POCT ORDERABLES - DEVICE Fin al Result KATIE [facility] 1 [facility] Department of Laboratories [place], [place] [id number] * Colonoscopy (07/04/2024 10:48 AM CDT) Anatomical Region Laterality Modality Other Narrative Procedure Note Darrell Richard MD - 07/04/2024 10:48 AM CDT [facility] Patient Name: Orlin Forsting Procedure Date: 07/04/2024 10:48 AM Date of : 1955 Admit Type: Outpatient Age: 69 Gender: Female Attending MD: Darrell Richard M.D. Room: [facility] ENDOSCOPY ROOM 3 Note Status: Finalized Patient [...] procedure were verified by the physician, the curriculum director and the histotechnician in the endoscopy suite. Mental Status Examination: [...] under direct vision. The Pediatric Colonoscope [id number] was introducedthrough the anus and advanced to [...] 10:48 AM Procedure Code(s): --- Professional --- 12747, Colonoscopy, flexible; with removal of tumor(s), polyp(s), or other lesion(s) by snare technique --- Technical --- 22389, Colonoscopy, flexible; with removal of tumor(s), polyp(s), [...] congenital malformations of intestine CPT copyright 2020 [employer]. All rights reserved. The codes documented in this report are preliminary and upon teradata solution architect reviewmay be revised to meet current compliance requirements. Recognized by the [employer] for promoting quality [...] LAB BLOOD ORDERABLES F inal Result KATIE [facility] [place]) 1 [facility] Department of Laboratories [place], [place] [id number] * Lipid panel (10/07/2023 8:34 PM FUNCTIONAL TESTER) Cholesterol 109 30 - 199 mg/dL KATIE [...] revised on 2018. HDL 48 >=40 mg/dL KATIE [facility] Comment: Interpretive Data Ages < or [...] on 2018. LDL, calculated 36 <=129 mg/dL [facility] Comment: Interpretive Data Ages < or = [...] on 2018. Non-HDL Cholesterol 61 mg/dL KATIE [facility] Comment: Interpretive Data Ages < or [...] last revised on 2018. Chol/HDL ratio 2 [facility] Blood 10/07/2023 8:34 PM FUNCTIONAL TESTER 10/07/2023 9:01 PM FUNCTIONAL TESTER Eduardo Quiroz MD LAB BLOOD ORDERABLES Final Result Performing Organization Address [facility] Co de Phone Number [facility] [place] [address] * (ABNORMAL) Hemoglobin A1c (10/05/2023 9:29 PM FUNCTIONAL TESTER) Hgb A1C 6.5(H) 4.0 - 5.6 % [facility] Estimated Average Glucose 140 mg/dL [facility] Comment: The ADA recommends reporting an estimated Average Glucose (eAG) with all Hemoglobin A1c results using the equation derived from a study of 507 normal and diabetic adults. ??Minority populations were underrepresented and children were not included. ?? (Diabetes Care 2020; 43(S1): S66-S76). ??The eAG is not equivalent to a fasting glucose. Blood 10/05/2023 9:29 PM FUNCTIONAL TESTER 10/05/2023 9:48 PM FUNCTIONAL TESTER Haylee Lee MD LAB BLOOD ORDERABLES Final Resul t Performing Organization Address [facility] Co de Phone Number [facility] [place] [address] from Last 3 Months or Most Recently Relevant to Health Maintenance Insurance [facility] MEDICARE [facility] MEDICARE Advance Directives For more information, please contact: [phone] * Full Code (Latest Code Status on [...] 12:19 PM 10/09/2023 2:21 PM Care Teams Netbackup Admin Relationship Specialty Start Date End Date Parth Mcdonald MD [address] [address] PCP - General Family Medicine 05/13/18
--- OUTSIDE RECORDS SUMMARY | 2024-10-02 12:23 | XMS_ITS | Encounter Summary ---
Author Organization [facility] Address [address] [place] [address] Phone Care Team Providers Care Furniture Maker Name Role Phone Parth Mcdonald MD Primary Care Provider [phone] Braydon Ford MD Unavailable Reyes Byrnes MD Unavailable [phone] Shayan Garcia APRN, CNP Unavailable + [phone] Reason for Visit * Reason Comments Medication Refill Encounter Details Date Type Department Care Team (Late st Contact Info) Description 09/26/2022 Refill [facility] - Pulmonology & Sleep Medicine [facility] [address] [place] [address] Braydon Ford MD [address] [place] [address] Medication Refill Social History Tobacco [...] Telephone Encounter - Meg Aguilar RN - 09/26/2022 9:09 AM RAILROAD SIGNAL OPERATOR Medication failed the protocol, provider to review and approve the medication order if appropriate. Requested Prescriptions Pending Prescriptions Disp Refills varenicline (CHANTIX) 1 MG Tablet [Pharmacy Med Name: VARENICLINE 1 MG TABLET] 56 Tablet 1 Sig: TAKE 1 TABLET BY MOUTH EVERY DAY Not Delegated - Smoking Deterrents Protocol Failed - 09/26/2022 9:07 AM Failed - This refill cannot be delegated Passed - Visit with relevant provider in past 6 months or upcoming 90 days Recent Visits Date Type Provider Dept 04/24/22 Office Visit Braydon Ford MD [facility] Showing recent visits within past 182 days and meeting all other requirements Future Appointments Date Type Provider Dept 10/18/22 Appointment Braydon Ford MD [facility] Showing future appointments within next 90 days and meeting all other requirements ROAD SIGNAL OPERATOR documented in this encounter Plan of Treatment Upcoming Encounters Date Type Department Care Team (Late st Contact Info) Description 12/31/2024 10:15 AM CDT [facility] - Family Medicine - [place] [address] [phone] Parth Mcdonald MD [address] [address] 01/20/2025 1:00 PM CDT Office Visit [facility] [address] [place] [address] Shayan Garcia, ROUTER OPERATOR RADIAL, CLEANING CREW MEMBER [address] [place] [address] 03/10/2025 10:00 AM CDT Office Visit [facility] - Pulmonology & Sleep Medicine [facility] [address] [place] [phone] Braydon Ford MD [address] [place] [address] documented as of this encounter Visit Diagnoses Not on filedocumented in this encounter Additional Health Concerns Assessment Noted Time PHQ-9 Depression Total Score: 0 07/07/20 21 11:00 AM CDT documented as of this encounter Care Teams Furniture Maker Relationship Specialty Start Date End Date Parth Mcdonald MD [address] [address] PCP - General Family Medicine 07/08/15 Braydon Ford MD [address] [place] [address] Consulting Physician Pulmonary Disease 07/23/17 Reyes Byrnes MD [address] [facility] [address] [place] [address] Orthopaedic Surgery 07/23/17 Shayan Garcia, ROUTER OPERATOR RADIAL, CLEANING CREW MEMBER [address] [place] [address] Nurse Practitioner Advanced Practice Nurse 03/03/24 documented as of this encounter
--- OUTSIDE RECORDS SUMMARY | 2024-10-02 12:23 | XMS_ITS ---
Author Organization [facility] Address [address] [place] [address] Care Team Providers Care Research Worker Encyclopedia Name Role Phone Parth Mcdonald MD Primary Care Provider [phone] Active Problems Problem Noted Date Diagnosed Date NSTEMI (non-ST elevated myocardial infarction) ( [facility]) 06/23/2024 Abdominal pain 04/20/2024 Assessment & [...] NSAIDs Assessment & Plan (10/10/2023 12:52 PM CHICKEN TENDER): Patient with diffuse colitis who presents with [...] 10/06/2023 Assessment & Plan (10/10/2023 12:51 PM CHICKEN TENDER): 2/2 GI blood loss. No more brbpr nor clots. - trend. Today Hgb is 9.9 - transfuse if < 7 or becomes symptomatic PAD (peripheral artery disease) 03/14/2023 Discoloration of skin of toe 02/07/2023 Leg pain, bilateral 02/07/2023 Urinary incontinence 02/07/2023 Assessment & Plan (10/06/2023 9:10 AM CHICKEN TENDER): Continue home Myrbetriq Wheezing 02/07/2023 Chronic narcotic use 11/29/2020 Depression 11/29/2020 Abnormal x-ray of lumbar spine 11/08/2020 Lumbar spondylosis 11/08/2020 Lumbar back pain 10/26/2020 Insomnia 05/17/2020 Neoplasm 04/13/2020 Osteoarthritis of knee 04/13/2020 Pain in limb 04/13/2020 Radiotherapy follow-up 04/13/2020 History of coronary artery stent placement 02/11 Coronary artery disease with unstable angina pec toris 02/02/2020 Pure hypercholesterolemia 02/02/2020 Unstable angina ([facility]) 02/02/2020 Centrilobular emphysema 12/30/2019 Ex-smoker 12/25/2019 Obesity (BMI 30-39.9) 09/16/2019 Type 2 diabetes mellitus treated without insulin ([facility]) 09/16/2019 Restless legs syndrome (RLS) 03/17/2019 Environmental allergies 03/11/2019 Encounter for screening mammogram for breast can cer 10/02/2018 Postprandial diarrhea 06/25/2018 Postprandial bloating 06/10/2018 NE, old 10/05/2017 Anxiety 07/23/2017 Assessment & Plan (10/06/2023 9:10 AM CHICKEN TENDER): Continue home Buspirone Gastroesophageal reflux disease 10/17/2016 KELIN (obstructive sleep apnea) 10/04/2016 Assessment & Plan (10/06/2023 9:09 AM CHICKEN TENDER): CPAP at 5 Ropinirole for RLS Lung nodule 06/15/2016 Pulmonary hypertension 06/15/2016 SOB (shortness of breath) 06/15/2016 Diabetes mellitus type 2, diet-controlled 2015 Assessment & Plan (10/06/2023 9:09 AM CHICKEN TENDER): Hold home metformin SSI Coronary artery disease invo lving coronary bypass graft of [place] heart without angina pectoris 03/17/2014 Overview (12/07/2016): COR ATH BYPASS GRAFT NOS Assessment & Plan (10/10/2023 12:53 PM CHICKEN TENDER): Hold Aspirin for now - continue Metoprolol, statin - Waiting GI recs regarding restarting ASA 81 mg. Impaired fasting glucose 01/17/2014 Overview (12/07/2016): IMPAIRED FASTING GLUCOSE Multiple-type hyperlipidemia 01/17/2014 Overview (12/07/2016): MIXED HYPERLIPIDEMIA Benign hypertension 01/17/2014 Overview (12/08/2016): BENIGN HYPERTENSION Assessment & Plan (10/06/2023 9:08 AM CHICKEN TENDER): Metoprolol and Losartan Chronic obstructive pulmonary disease 01/17/2014 Overview (12/08/2016): CHR AIRWAY OBSTRUCT NEC Assessment & Plan (10/06/2023 9:09 AM CHICKEN TENDER): No evidence of acute exacerbation - continue albuterol and Breo Carcinoma of vulva ([facility]) 05/24/2012 Current Oncology Plans No current plan information found. Past Plans No past plan information found. Radiation Treatments * No radiation treatments are documented for this patient in [employer]. Treatments may have been administered in another system. Lifetime Dose Tracking * Chemical Lifetime Dose Automatic Entry Manual Entr y DLP 1,844 mGycm 1,844 mGycm 0 mGycm Resolved Problems Problem Noted Date Diagnosed Date Resolved Date Hypokalemia 10/09/2023 10/10/2023 Assessment & Plan (10/09/2023 5:34 PM CHICKEN TENDER): Due to poor PO - IV KCL today
--- OUTSIDE RECORDS SUMMARY | 2024-10-02 12:23 | XMS_ITS | Encounter Summary ---
Author Organization [facility] Address [address] [place] [address] Phone Care Team Providers Care Regional Safety Manager Name Role Phone Parth Mcdonald MD Primary Care Provider [phone] Braydon Ford MD Unavailable Reyes Byrnes MD Unavailable [phone] Shayan Garcia APRN, CNP Unavailable [phone] Reason for Visit * Reason Comments Medication Refill Encounter Details Date Type Department Care Team (Late st Contact Info) Description 07/19/2022 Refill [facility] - [place] [address] [place] [address] Parth Mcdonald MD [address] [address] Medication Refill Social History Tobacco Use Types [...] Telephone Encounter - Debi Martin RN - 07/19/2022 10:07 AM CST Medication failed the protocol, provider to review and approve the medication order if appropriate. Requested Prescriptions Pending Prescriptions Disp Refills losartan (COZAAR) 50 MG Tablet [Pharmacy Med Name: LOSARTAN POTASSIUM 50 MG TAB] 90 Tablet 2 Sig: TAKE 1 TABLET BY MOUTH EVERY DAY ARB Protocol Failed - 07/19/2022 12:37 AM Failed - Serum potassium on record in past 12 months POTASSIUM Date Value Ref Range Status 07/07/2021 4.4 3.5 - 5.1 mmol/L Final Failed - GFR on record in past 12 months GFR, EST. NONAFRICAN Date Value Ref Range Status 07/07/2021 >60 >=60 Final Passed - BP on record in the past year Clinician-entered: BP Readings from Last 3 Encounters: 04/24/22 132/76 12/31/21 150/78 11/01/21 122/74 Patient-entered: No data recorded Passed - Visit with relevant provider in past year or upcoming 90 days Recent Visits Date Type Provider Dept 02/28/22 Telemedicine Parth Mcdonald MD [facility] 11/01/21 Office Visit Sanford Fagan APRN, JAVA LEAD DEVELOPER [facility] 09/12/21 Telemedicine Parth Mcdonald MD [facility] 07/25/21 Office Visit [facility] [place], [facility] Showing recent visits within past 365 days and meeting all other requirements Future Appointments No visits were found meeting these conditions. Showing future appointments within next 90 days and meeting all other requirements L CLERK documented in this encounter Plan of Treatment Upcoming Encounters Date Type Department Care Team (Late st Contact Info) Description 12/31/2024 10:15 AM CDT Office Visit [facility] - Family Medicine [facility] [address] [place] [address] Parth Mcdonald MD #[address] [address] 01/20/2025 1:00 PM CDT Office Visit [facility] UROLOGY [address] [place] [address] Shayan Garcia APRN, JAVA LEAD DEVELOPER [address] [place] [address] 03/10/2025 10:00 AM CDT Office Visit [facility] - Pulmonology & Sleep Medicine [facility] [address] [place] [address] Braydon Ford MD [address] [place] [address] documented as of this encounter Visit Diagnoses Not on filedocumented in this encounter Additional Health Concerns Assessment Noted Time PHQ-9 Depression Total Score: 0 07/07/20 21 11:00 AM CDT documented as of this encounter Care Teams Regional Safety Manager Relationship Specialty Start Date End Date Parth Mcdonald MD [address] [address] PCP - General Family Medicine 07/08/15 Braydon Ford MD [address] [place] [address] Consulting Physician Pulmonary Disease 07/23/17 Reyes Byrnes MD [address] [facility] [address] [place] [address] Orthopaedic Surgery 07/23/17 Shayan Garcia APRN, JAVA LEAD DEVELOPER [address] [place] [address] Nurse Practitioner Advanced Practice Nurse 03/03/24 documented as of this encounter
--- OUTSIDE RECORDS SUMMARY | 2024-10-02 12:23 | XMS_ITS | Patient Health Summary ---
Author Organization [facility] Address [address] [place] [address] Care Team Providers Care Corporate Executive Chef Name Role Phone Unavailable Primary Care Provider Unavailabl e Note from [facility],non-owned Affiliates and Associated Physician Practices is amultiple site organization consisting of ambulatory clinics and hospital sitesin [place], [place], [place] and [place]. This disclosure is being madepursuant to the Care Everywhere program and may not contain all information available regarding this patient. Last updated 18.[facility] Social History Tobacco Use Types Packs/Day Years Used Date Smoking Tobacco: Never Assessed Sex and Gender Information Value Date Recorded Sex Assigned at Not on file Gender Identity Not on file Sexual Orientation Not on file Procedures * SARS-COV-2 (COVID-19) IN HOUSE(Performed 02/02/2020) Performed for Cough Results * SARS-COV-2 (COVID-19) IN HOUSE (02/02/2020 3:45 PM CDT) COVID-19 PCR Not detected Not detected, Invalid 02/03/2020 6:28 AM CDT [facility] Microbiology SPECIMEN FROM NASOPHARYNGEAL STRUCTURE / Unknown Collection / Unknown 02/02/2020 3:45 PM CDT 02/02/2020 6:54 PM CDT Narrative [facility] - 02/03/2020 6:28 AM CDT This Real Time RT-PCR assay was developed and its performance characteristics determined by [facility]. This test has been [...] Evan Denney MD LAB - MICROBIOLOGY ORDERABLES [facility] [address] [place], [place] [address], [facility] [phone]
== END ==
LOC: EXPBRAD 11:25
PROVIDERS: PCP Orthopaedic Surgery; Visit Provider Orthopaedic Surgery
DX: M19.011 Primary osteoarthritis, right shoulder (principal); M75.31 Calcific tendinitis of right shoulder
CPT/HCPCS: 73030